=== PATIENT | female | born 1960 | race Two or more races ===

== ENCOUNTER 2023-02-14 11:14 | Outpatient (OUT) | payer BC, SELFPAY ==
--- NOTE | 2023-02-14 11:47 | MM_ITS ---
Patient Name: RICARDO MARTINEZ MR#: [id number] : 1960 Exam Date: 02/14/2023 Ordering Doctor: DR SANDRA AGUIRRE RADIOLOGY REPORT PROCEDURE: MM TOMOSYNTHESIS SCREENING BI COMPARISON: MG MAMM SCREEN 3D ION CAD, 06/10/2021. MG MAMM SCREEN INO W CAD, 11/13/2019. MG MAMM SCREEN ION W CAD, 02/08/2018. INDICATIONS: screening Calculator Name NCI Breast Cancer Risk Assessment Tool 5 Year Breast Cancer Risk 0.90% Lifetime Breast Cancer Risk 5.00% Personal Breast Cancer No Personal Ovarian Cancer No Treatments None Family Cancers Brother with pancreas cancer at age 52; Father with multiple myeloma cancer at age ~70. LOCATION: [facility] BREAST COMPOSITION: Almost entirely fatty. FINDINGS: DIAGNOSTIC CATEGORY 0--INCOMPLETE: NEED ADDITIONAL IMAGING EVALUATION. RIGHT BREAST: No significant suspicious finding. No significant change has occurred. LEFT BREAST: Interval increase in size and density of a 16 mm lymph node within the posterior upper-outer quadrant. Spot magnification views and ultrasound evaluation recommended. RECOMMENDATIONS: ADDITIONAL MAMMOGRAPHIC VIEWS REQUIRED: LEFT BREAST - RIGHT EXAGGERATED CRANIOCAUDAL VIEW - LEFT OBLIQUE SPOT MAGNIFICATION VIEW - ULTRASOUND: LEFT BREAST PLEASE NOTE: A NORMAL MAMMOGRAM DOES NOT EXCLUDE THE POSSIBILITY OF BREAST CANCER. A CLINICALLY SUSPICIOUS PALPABLE LUMP SHOULD BE BIOPSIED. Dictated by: Benja Augustin M.D. on 02/15/2023 at 08:45 Approved by: Benja Augustin M.D. on 02/15/2023 at 08:52
== END 2023-02-14 11:15 | disposition home or self-care (01) ==
LOC: MAMMO 11:14
PROVIDERS: PCP Nurse Practitioner Family; Visit Provider Nurse Practitioner Family
DX: Z12.31 Encounter for screening mammogram for malignant neoplasm of breast (principal); Z80.7 Family history of other malignant neoplasms of lymphoid, hematopoietic and related tissues; Z80.8 Family history of malignant neoplasm of other organs or systems; R59.0 Localized enlarged lymph nodes
CPT/HCPCS: 77063; 77067

== ENCOUNTER 2023-03-06 09:48 | Outpatient (OUT) | payer BC, SELFPAY ==
--- NOTE | 2023-03-06 09:52 | MM_ITS ---
Patient Name: RICARDO MARTINEZ MR#: [id number] : 1960 Exam Date: 03/06/2023 Ordering Doctor: DR CAROLYNN HALE RADIOLOGY REPORT PROCEDURE: MM DIAGNOSTIC MAMMO UNILAT LT, 03/06/2023, 09:52 US BREAST LT LIMITED, 03/06/2023, 10:10 COMPARISON: MG MAMM SCREEN 3D ION CAD, 06/10/2021. MM TOMOSYNTHESIS SCREENING BI, 02/14/2023. INDICATIONS: Abnormal Mammogram R92.8 Calculator Name NCI Breast Cancer Risk Assessment Tool 5 Year Breast Cancer Risk 0.90% Lifetime Breast Cancer Risk 5.00% Personal Breast Cancer No Personal Ovarian Cancer No Treatments None Family Cancers Brother with pancreas cancer at age 52; Father with multiple myeloma cancer at age ~70. LOCATION: [facility] BREAST COMPOSITION: Almost entirely fatty. FINDINGS: DIAGNOSTIC CATEGORY 3--PROBABLY BENIGN FINDING. THE FOLLOWING FINDING(S) HAS A HIGH PROBABILITY OF A BENIGN ETIOLOGY: Mammography demonstrates 2 focal lesions in oval/round lesion measuring 1.5 cm in the axillary tail seen only on the MLO spot compression. A 1.1 cm right of form nodule upper outer quadrant, mid to posterior breast. Ultrasound demonstrates 2 axillary lesions. The 1st lesion measures 1.9 x 0.8 x 1.1 cm oval hypoechogenic consistent with a normal-size normal morphology lymph node the cortex measuring approximately 3 mm, hypervascular hyper echogenic hilum. The 2nd lesion measures 1.4 x 0.6 x 1.2 cm oval lesion having a mildly heterogeneous thickened cortex measuring 3.2 mm with a hyper echogenic hypervascular hilum. Short interval follow-up of these 2 lymph nodes is recommended in light of the increased in size from 2021 and borderline thickened cortex of 1 of the 2 lymph node. RECOMMENDATIONS: FOLLOW-UP ULTRASOUND RIGHT BREAST IN 12 MONTHS. PLEASE NOTE: A NORMAL MAMMOGRAM DOES NOT EXCLUDE THE POSSIBILITY OF BREAST CANCER. A CLINICALLY SUSPICIOUS PALPABLE LUMP SHOULD BE BIOPSIED. Dictated by: Kunal Taylor MD on 03/06/2023 at 10:28 Approved by: Kunal Taylor MD on 03/06/2023 at 10:34
--- OUTSIDE RECORDS SUMMARY | 2023-03-06 09:56 | XMS_ITS | CCD ---
Author Name Unknown Address [address] [place] [address] Organization [facility] Care Team Providers Care Motion Designer Name Role Phone AURA OLIVAS Attending Unavailable ELIDAS, CANDACE R Primary Care Unavailable Elidas, Candace R Primary Care Provider Carla, Candace R Primary Care Provider Carla, Candace R Primary Care Provider [phone] Carla, Candace R Primary Care Provider Candace Aguirre R Primary Care Provider CARLA, CANDACE Gonsalez Primary Care Unavailable DENIZ, DR BRYN Cervantes Admitting Unavailabl e REINECK, DR BRYN Cervantes Attending Unavailabl e CARLTONECK, DR BRYN Cervantes Consulting Unavailabl e FALVO, SYEDA Consulting Unavailable RASTEGAR, SU Consulting Unavailable ELIDAS, CANDACE R Primary Care Unavailable KUNS, CANDACE R Admitting Unavailable ELIDAS, CANDACE R Attending Unavailable SRIDHAR, DR ADELINA Ku Consulting Unavailable CANDACE AGUIRRE R Consulting Unavailable CARLA CANDACE Primary Care Physician Lata Guardado Referring Unavailable MileysLata H Attending Unavailable Lata Guardado H Admitting Unavailable Kuns, Candace R Primary Care Provider Candace Aguirre CNP R Primary Care Provider [phone] Bakari Jones DO Primary Care Provider CARLA, CANDACE R Primary Care Unavailable ABHYANKAR, RUDI Referring Unavailable KUNS, CANDACE R Primary Care Unavailable ABHYANKAR, RUDI Referring Unavailable ABHYANKAR, RUDI Referring Unavailable KUNS, CANDACE R Primary Care Unavailable KUNS, CANDACE R Primary Care Unavailable ABHYANKAR, RUDI Referring Unavailable ABHYANKAR, RUDI Attending Unavailable KUNS, CANDACE Gonsalez Primary Care Unavailable ABHYANKAR, RUDI Referring Unavailable KUNS, CANDACE Gonsalez Primary Care Unavailable ABHYANKAR, RUDI Referring Unavailable ABHYANKAR, RUDI Referring Unavailable KUNS, CANDACE Gonsalez Primary Care Unavailable ABHYANKAR, RUDI Referring Unavailable KUNS, CANDACE Gonsalez Primary Care Unavailable KUNS, CANDACE Gonsalez Primary Care Unavailable ABHYANKAR, RUDI Referring Unavailable KUNS, CANDACE Gonsalez Primary Care Unavailable ABHYANKAR, RUDI Referring Unavailable KUNS, CANDACE Gonsalez Primary Care Unavailable ABHYANKAR, RUDI Referring Unavailable KUNS, CANDACE Gonsalez Primary Care Unavailable AILIN TREVINO Attending Unavailable ABHYANKAR, RUDI Referring Unavailable KUNS, CANDACE Gonsalez Primary Care Unavailable ABHYANKAR, RUDI Referring Unavailable KUNS, CANDACE Gonsalez Primary Care Unavailable ABHYANKAR, RUDI Referring Unavailable Allergies Allergy Classification Reported Allergen(s) Allergy Type Date of Onset Reaction(s) Facility (20 sources) ferric derisomaltose; Translations: [FERRIC DERISOMALTOSE] Drug Allergy 1 Itching [facility] (2 sources) Codeine; Translations: [codeine] Drug Allergy [facility] (1 source) Codeine; Translations: [codeine] Drug Allergy skin peeling, Hives, Itching [facility] Medications Current Medications Medication Drug Class(es) Dates Sig (Normalized) Sig (Original) acetaminophen 500 mg oral tablet (3 sources) Start: 06-08-2022 take 1 tablet by mouth every six hours as needed acetaminophen (TYLENOL EXTRA STRENGTH) 500 mg tablet Take 1 tablet (500 mg total) by mouth every 6 (six) hours as needed. 0 06/08/2022 Active Start: 06-08-2022 take 1 tablet by xiang th every four hours as needed for fever acetaminophen 500 mg Tab 500 mg = 1 tab(s), Oral, q4hr, PRN for fever, # 60 tab(s), Refills(s) 0, Pain Start Date: 06/08/22 Status: Ordered cholecalciferol 0.05 mg oral capsule (20 sources) Vitamin D Start: 02-08-2023 take 2 capsules by mouth in the morning cholecalciferol, vitamin D3, 2,000 units capsule TAKE 2 CAPSULES (4,000 UNITS TOTAL) BY MOUTH IN THE MORNING. 200 capsule 3 02/08/2023 Active Cholecalciferol, Vitamin D3, 50 mcg (2,000 unit) cap q 24 HR. 0 Active Comment on above: q 24 HR. docusate sodium 100 mg oral capsule (20 sources) Start: 05-12-19 take 1 capsule by mouth once daily as needed for constipation docusate sodium (COLACE) 100 mg capsule Indications: Slow transit constipation Take 1 capsule (100 mg total) by mouth daily as needed for constipation. 30 capsule 1 03/06/2022 Active Comment on above: TAKE 1 CAPSULE BY MO [facility] EVERY DAY NEEDED Iron-Dextran Complex (1 source) Start: 06-09-19 iron dextran IntraMuscular, qMonth, Refills(s) 0 Start Date: 06/08/22 Status: Ordered 3 ml liraglutide 6 mg/ml pen injector (7 sources) GLP-1 Receptor Agonist Start: 09-09-19 liraglutide, weight loss, 3 mg/0.5 mL (18 mg/3 mL) pen injector Indications: Obesity (BMI 30.0-34.9) Inject 3 mg under the skin in the morning. This will be the maintenance dose. 45 mL 5 12/14/2022 Active Start: 01-16-2022 End: 05-14-2022 liraglutide (VICTOZA) 0.6 mg / 0.1 ml subcutaneous pen injector Inject subcutaneously. 0 01/16/2022 05/14/2022 Active Comment on above: Inject subcutaneousl y. Inject 3 mg subcutan eously. topiramate 25 mg oral tablet (20 sources) Start: 07-01-19 take 1 tablet by mouth once daily at bedtime topiramate (TOPAMAX) 25 mg tablet Indications: Obesity, unspecified TAKE 1 TABLET BY MOUTH EVERYDAY AT BEDTIME 90 tablet 1 06/30/2022 Active vitamin b12 1 mg/ml injectable solution (20 sources) Vitamin B12 Start: 10-14-19 cyanocobalamin (VITAMIN B-12) 1,000 mcg/mL injection INJECT 1ML EVERY 28 DAYS DIRECTED 3 mL 3 10/13/2022 Active Start: 05-05-2020 take 1 tablet by xiang once daily cyanocobalamin (VITAMIN B-12) 1,000 mcg tab Take 1,000 mcg by mouth once daily. 0 05/05/2020 Active Comment on above: Take 1,000 mcg by mo [facility] once daily. Completed/Discontinued Medications Medication Drug Class(es) Dates Sig (Normalized) Sig (Original) benzonatate 200 mg oral capsule (19 sources) Non-narcotic Antitussive take 1 capsule by mouth three times daily Benzonatate 200 mg capsule benzonatate 200 mg capsule Take 1 capsule 3 times a day by oral route for 10 days. 0 Active Comment on above: benzonatate 200 mg c apsule Take 1 capsule 3 times a day by oral route for 10 days. ferrous sulfate 325 mg oral tablet (20 sources) Start: 05-05-2020 take 1 tablet by mouth once daily ferrous sulfate 325 mg (65 mg iron) tablet Take 1 tablet by mouth once daily. 0 05/05/2020 Active take 1 tablet by xiang th once daily at breakfast ferrous sulfate 325 (65 FE) mg tablet Ta ke 1 tablet (325 mg total) by mouth daily with breakfast. 0 Active Comment on above: Take 1 tablet by xiang th once daily. methylPREDNISolone 4 mg oral tablet (11 sources) Corticosteroid Start: 2020 End: 2022 methylPREDNISolone (MEDROL) 4 mg 0 06/21/2020 03/24/2022 Discontinued (Course of therapy completed) phentermine hydrochloride 37.5 mg oral tablet (19 sources) Sympathomimetic Amine Anorectic Start: 2020 take 1 tablet by mouth once daily Phentermine HCl 37.5 mg tablet Take 37.5 mg by mouth once daily. 0 06/01/2020 Active Comment on above: Take 37.5 mg by mout h once daily. Problems Active Problems Problem Classification Problem Date Documented Da te Episodic/Chronic Deficiency and other anemia (20 sources) Iron deficiency anemia secondary to inadequate dietary iron intake; Translations: [Other iron deficiency anemias] Onset: 06-09-2020 Episodic Diseases of white blood cells (20 sources) Leukemoid reaction; Translations: [Leukemoid reaction] Onset: 06-09-2020 Chronic E Codes: Fall (1 source) Fall on same level from slipping, tripping and stumbling with subsequent striking against unspecified object, initial encounter; Translations: [FALL SAME LVL SLIP STRK UNS OBJ INT] Onset: 06-05-2022 Episodic Nutritional deficiencies (2 sources) Vitamin D deficiency; Translations: [Vitamin D deficiency, unspecified] Onset: 07-08-2018 01-16-2022 Chronic Other gastrointestinal disorders (1 source) H/O: GIT by-pass; Translations: [Bariatric surgery status] Episodic Other injuries and conditions due to external causes (3 sources) Other specified injuries of head, initial encounter; Translations: [OTH SPEC INJURIES HEAD INITIAL ENC] Onset: 06-01-2022 Episodic Other screening for suspected conditions (not mental disorders or infectious disease) (8 sources) Encounter for screening mammogram for malignant neoplasm of breast; Translations: [Mammography abnormal] Onset: 01-04-2018 Episodic Skull and face fractures (1 source) Fracture of nasal bones, initial encounter for closed fracture; Translations: [FX NASAL BONES INITIAL ENC CLOS FX] Onset: 06-05-2022 Episodic Superficial injury; contusion (1 source) Contusion of other part of head, initial encounter; Translations: [CONTUS OTH PRT HEAD INITIAL ENCNTR] Onset: 06-05-2022 Episodic Past or Other Problems Problem Classification Problem Date Documented Da te Episodic/Chronic Deficiency and other anemia (20 sources) 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; Translations: [Vitamin B12 deficiency anemia due to selective vitamin B12 malabsorption with proteinuria] Onset: 06-09-2020 Episodic Deficiency and other anemia (2 sources) Iron deficiency anemia; Translations: [Iron deficiency anemia, unspecified] Onset: 01-04-2018 01-04-2018 Episodic Deficiency and other anemia (2 sources) Iron deficiency anemia due to dietary causes; Translations: [Other iron deficiency anemias] Onset: 06-09-2020 01-16-2022 Episodic Mood disorders (2 sources) Mood disorders Onset: 02-05-2023 02-05-2023 Other and unspecified benign neoplasm (2 sources) Polyp of transverse colon; Translations: [Polyp of colon] Onset: 01-23-2018 01-23-2018 Episodic Other gastrointestinal disorders (2 sources) Constipation; Translations: [Constipation, unspecified] Onset: 01-04-2018 01-04-2018 Episodic Other hematologic conditions (19 sources) Secondary polycythemia; Translations: [Secondary polycythemia] Onset: 10-07-2021 Episodic Other nutritional; endocrine; and metabolic disorders (2 sources) H/O: nutritional disorder; Translations: [Personal history of other endocrine, nutritional and metabolic disease] Onset: 12-10-2017 01-16-2022 Episodic Unclassified (2 sources) Onset: 02-05-2023 02-05-2023 Results Test Name Value Interpretation Reference Range Facility [facility] 02-23-2023 [facility] Nurse Visit (HEMASA) ERICA MARTINEZ ([id number]) 1960 F Date Time Provider Department 02/23/23 10:30 AM [facility] NURSE LETTY KOWALSKI HEMNAFISA During your visit today, we recorded the following information about you: Temperature Pulse Respiration Blood pressure 97.8 degrees 54/minute 16/minute 136/70 Sophy Mirza 02/23/2023 10:42 AM Signed Patient Identification confirmed: yes. Injection given and documented on APR per provider order. 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 - Cholecalciferol, Vitamin D3, 50 mcg (2,000 unit) cap q 24 HR. - topiramate (TOPAMAX) 25 mg tablet - Benzonatate 200 mg capsule benzonatate 200 mg capsule Take 1 capsule 3 times a day by oral route for 10 days. - ferrous sulfate 325 mg (65 mg iron) tablet Take 1 tablet by mouth once daily. - cyanocobalamin (VITAMIN B-12) 1,000 mcg tab Take 1,000 mcg by mouth once daily. - docusate sodium (COLACE) 100 mg capsule TAKE 1 CAPSULE BY MOUTH EVERY DAY NEEDED - Phentermine HCl 37.5 mg tablet Take 37.5 mg by mouth once daily. Problem List As Of Date 02/23/2023 Noted Resolved Iron deficiency anemia secondary to inadequate *06/09/2020 Vitamin B12 deficiency anemia due to selective *06/09/2020 Leukemoid reaction [D72.823] 06/09/2020 Secondary polycythemia [D75.1] 10/07/2021 Prescriptions ordered this encounter Disp Refills Start End CYANOCOBALAMIN (VIT B-12) 1,000 MCG/* 02/23/2023 02/23/2023 Route: INTRAMUSCULA Encounter Status:Closed by SOPHY MIRZA on 02/23/23 [facility] 01-19-2023 [facility] Nurse Visit (HEMASA) ERICA MARTINEZ ([id number]) 1960 F Date Time Provider Department 01/19/23 10:30 AM [facility] ESCOBEDO During your visit today, we recorded the following information about you: Jhon Turcios Ma 01/19/2023 10:32 AM Signed Patient Identification confirmed: yes. Injection given and documented on APR per provider order. 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 - Cholecalciferol, Vitamin D3, 50 mcg (2,000 unit) cap q 24 HR. - topiramate (TOPAMAX) 25 mg tablet - Benzonatate 200 mg capsule benzonatate 200 mg capsule Take 1 capsule 3 times a day by oral route for 10 days. - ferrous sulfate 325 mg (65 mg iron) tablet Take 1 tablet by mouth once daily. - cyanocobalamin (VITAMIN B-12) 1,000 mcg tab Take 1,000 mcg by mouth once daily. - docusate sodium (COLACE) 100 mg capsule TAKE 1 CAPSULE BY MOUTH EVERY DAY NEEDED - Phentermine HCl 37.5 mg tablet Take 37.5 mg by mouth once daily. Problem List As Of Date 01/19/2023 Noted Resolved Iron deficiency anemia secondary to inadequate *06/09/2020 Vitamin B12 deficiency anemia due to selective *06/09/2020 Leukemoid reaction [D72.823] 06/09/2020 Secondary polycythemia [D75.1] 10/07/2021 Visit Notes: >> Jhon Turcios Ma SunJan 19, 2023 10:31 AM Status: Signed Patient Identification confirmed: yes. Injection given and documented on APR per provider order. Jhon Turcios Ma Prescriptions ordered this encounter Disp Refills Start End CYANOCOBALAMIN (VIT B-12) 1,000 MCG/* 01/19/2023 01/19/2023 Route: INTRAMUSCULA Encounter Status:Closed by JHON TUCRIOS MA on 01/19/23 [facility] ER[facility] MARTINEZ ([id number]) 1960 F Date Time Provider Department 12/22/22 10:30 AM [facility] NURSE LETTY MEGHANA GREGG During your visit today, we recorded the following information about you: Temperature Pulse Respiration Blood pressure 97.3 degrees 56/minute 16/minute 136/68 Melissa Villegas MA 12/22/2022 10:59 AM Signed Patient Identification confirmed: yes. Injection given and documented on APR per provider order. 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 - Cholecalciferol, Vitamin D3, 50 mcg (2,000 unit) cap q 24 HR. - topiramate (TOPAMAX) 25 mg tablet - Benzonatate 200 mg capsule benzonatate 200 mg capsule Take 1 capsule 3 times a day by oral route for 10 days. - ferrous sulfate 325 mg (65 mg iron) tablet Take 1 tablet by mouth once daily. - cyanocobalamin (VITAMIN B-12) 1,000 mcg tab Take 1,000 mcg by mouth once daily. - docusate sodium (COLACE) 100 mg capsule TAKE 1 CAPSULE BY MOUTH EVERY DAY NEEDED - Phentermine HCl 37.5 mg tablet Take 37.5 mg by mouth once daily. Problem List As Of Date 12/22/2022 Noted Resolved Iron deficiency anemia secondary to inadequate *06/09/2020 Vitamin B12 deficiency anemia due to selective *06/09/2020 Leukemoid reaction [D72.823] 06/09/2020 Secondary polycythemia [D75.1] 10/07/2021 Visit Notes: >> Melissa Villegas MA SunDec 22, 2022 10:58 AM Status: Signed Patient Identification confirmed: yes. Injection given and documented on APR per provider order. Melissa Villegas MA Prescriptions ordered this encounter Disp Refills Start End CYANOCOBALAMIN (VIT B-12) 1,000 MCG/* 12/22/2022 12/22/2022 Route: INTRAMUSCULA Encounter Status:Closed by MELISSA VILLEGAS on 12/22/22 [facility] 11-24-2022 [facility] Nurse Visit (HEMASA) ERICA MARTINEZ ([id number]) 1960 F Date Time Provider Department 11/24/22 10:30 AM [facility] NURSE LETTY ESCOBEDO During your visit today, we recorded the following information about you: Temperature Pulse Respiration Blood pressure 97.9 degrees 59/minute 16/minute 144/62 Referring Provider: RUDI WARNER [[id number]] Allergies As of Date: 11/24/2022 Noted Allergy Reaction MONOFERRIC (FERRIC DERISOMALTOSE) 07/16/2020 9 - Itching Date Reviewed: 11/24/2022 Reviewed by: Yocasta Ibarra, TUYET - Fully Assessed Reason for Visit: Established Patient [175] Primary Visit Diagnosis:Iron deficiency anemia secondary to inadequate dietary iron intake [D50.8] Other Visit Diagnoses: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 - Cholecalciferol, Vitamin D3, 50 mcg (2,000 unit) cap q 24 HR. - topiramate (TOPAMAX) 25 mg tablet - Benzonatate 200 mg capsule benzonatate 200 mg capsule Take 1 capsule 3 times a day by oral route for 10 days. - ferrous sulfate 325 mg (65 mg iron) tablet Take 1 tablet by mouth once daily. - cyanocobalamin (VITAMIN B-12) 1,000 mcg tab Take 1,000 mcg by mouth once daily. - docusate sodium (COLACE) 100 mg capsule TAKE 1 CAPSULE BY MOUTH EVERY DAY NEEDED - Phentermine HCl 37.5 mg tablet Take 37.5 mg by mouth once daily. Problem List As Of Date 11/24/2022 Noted Resolved Iron deficiency anemia secondary to inadequate *06/09/2020 Vitamin B12 deficiency anemia due to selective *06/09/2020 Leukemoid reaction [D72.823] 06/09/2020 Secondary polycythemia [D75.1] 10/07/2021 Prescriptions ordered this encounter Disp Refills Start End CYANOCOBALAMIN (VIT B-12) 1,000 MCG/* 11/24/2022 11/24/2022 Route: INTRAMUSCULA Encounter Status:Closed by YOCASTA IBARRA on 11/24/22 [facility] 10-19-2022 [facility] Nurse Visit (HEMASA) ERICA MARTINEZ ([id number]) 1960 F Date Time Provider Department 10/19/22 9:00 AM [facility] ESCOBEDO During your visit today, we recorded the following information about you: Temperature Pulse Respiration Blood pressure 97.4 degrees 57/minute 16/minute 124/59 Weight Height 92.1 kg 1.626 m Jhon Turcios Ma 10/19/2022 9:17 AM Signed Patient Identification confirmed: yes. Injection given and documented on APR per provider order. 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] Leukemoid reaction [D72.823] Order(s):[facility] [[id number]] Order #: [id number]: 1 STANDING [facility] [[id number]] Order #: [id number]: 1 STANDING [facility] [[id number]] Order #: [id number]: 1 STANDING [facility] [[id number]] Order #: [id number]: 1 STANDING [facility] [[id number]] Order #: [id number]: 1 STANDING cyanocobalamin 1,000 mcg injectionDisp: Rfl: NaCl 0.9% iv infusionDisp: Rfl: diphenhydrAMINE 50 mg injection (BENADRYL)Disp: Rfl: hydrocortisone sodium succinate (PF) 100 mg injection (Solu-CORTEF)Disp: Rfl: EPINEPHrine 1 mg/mL (1 mL) 0.3 mg injectionDisp: Rfl: sodium chloride 0.9 % (flush) 10-20 mL (BD POSIFLUSH)Disp: Rfl: heparin 100 unit/mL 500 Units injectionDisp: Rfl: sodium chloride 0.9 % (flush) 10-20 mL (BD POSIFLUSH)Disp: Rfl: Prescriptions as of 10/19/2022 - liraglutide (SAXENDA) 3 mg/0.5 mL (18 mg/3 mL) pen injector Inject 3 mg subcutaneously. - Cholecalciferol, Vitamin D3, 50 mcg (2,000 unit) cap q 24 HR. - topiramate (TOPAMAX) 25 mg tablet - Benzonatate 200 mg capsule benzonatate 200 mg capsule Take 1 capsule 3 times a day by oral route for 10 days. - ferrous sulfate 325 mg (65 mg iron) tablet Take 1 tablet by mouth once daily. - cyanocobalamin (VITAMIN B-12) 1,000 mcg tab Take 1,000 mcg by mouth once daily. - docusate sodium (COLACE) 100 mg capsule TAKE 1 CAPSULE BY MOUTH EVERY DAY NEEDED - Phentermine HCl 37.5 mg tablet Take 37.5 mg by mouth once daily. Facility-Administered Medications as of 10/19/2022 - NaCl 0.9% iv infusion - diphenhydrAMINE 50 mg injection (BENADRYL) - hydrocortisone sodium succinate (PF) 100 mg injection (Solu-CORTEF) - EPINEPHrine 1 mg/mL (1 mL) 0.3 mg injection - sodium chloride 0.9 % (flush) 10-20 mL (BD POSIFLUSH) - heparin 100 unit/mL 500 Units injection - sodium chloride 0.9 % (flush) 10-20 mL (BD POSIFLUSH) Problem List As Of Date 10/19/2022 Noted Resolved Iron deficiency anemia secondary to inadequate *06/09/2020 Vitamin B12 deficiency anemia due to selective *06/09/2020 Leukemoid reaction [D72.823] 06/09/2020 Secondary polycythemia [D75.1] 10/07/2021 Visit Notes: >> Jhon Turcios Ma Marsha Oct 19, 2022 9:15 AM Status: Signed Patient Identification confirmed: yes. Injection given and documented on APR per provider order. Jhon Turcios Ma Prescriptions ordered this encounter Disp Refills Start End CYANOCOBALAMIN (VIT B-12) 1,000 MCG/* 10/19/2022 10/19/2022 Route: INTRAMUSCULA SODIUM CHLORIDE 0.9 % INTRAVENOUS SO* 10/19/2022 Cmt: Inform physician Route: INTRAVENOUS DIPHENHYDRAMINE 50 MG/ML INJECTION S* 10/19/2022 Route: INTRAVENOUS HYDROCORTISONE SOD SUCCINATE (PF) 10* 10/19/2022 Route: INTRAVENOUS EPINEPHRINE 1 MG/ML (1 ML) INJECTION* 10/19/2022 Route: INTRAMUSCULA SODIUM CHLORIDE 0.9 % (FLUSH) INJECT* 10/19/2022 Route: INTRAVENOUS HEPARIN LOCK FLUSH (PORCINE) 100 UNI* 10/19/2022 Route: INTRAVENOUS SODIUM CHLORIDE 0.9 % (FLUSH) INJECT* 10/19/2022 Route: INTRAVENOUS Encounter Status:Closed by JHON TURCIOS MA on 10/19/22 Normal [facility] CBC W Auto Differential pane l (Bld)on 09-22-2022 Basophils (Bld) [#/Vol] 0.25 10*3/uL High <0.11 [facility] Comment on above: Order Comment: Speci men Type: BLOOD SPECIMENOrdering Facility: [facility] Address: [address] [place] [address] Performed By: #### 5 7021-8 ####[facility] LABCLIA [id number] [address] LABCLIA [id number] [place] [address] [place] Basophils/100 WBC (Bld) 1.8 % Normal [facility] Comment on above: Order Comment: Speci men Type: BLOOD SPECIMENOrdering Facility: [facility] Address: [address] [place] [address] Performed By: #### 5 7021-8 ####[facility] LABCLIA [id number] [address] LABCLIA [id number] [place] [address] [place] Differential cell count method Nom (Bld) Manual Normal [facility] Comment on above: Order Comment: Speci men Type: BLOOD SPECIMENOrdering Facility: [facility] Address: [address] [place] [address] Performed By: #### 5 7021-8 ####[facility] LABCLIA [id number] [address] LABCLIA [id number] [place] [address] [place] Eosinophils (Bld) [#/Vol] 0.25 10*3/uL Normal <0.46 [facility] Comment on above: Order Comment: Speci men Type: BLOOD SPECIMENOrdering Facility: [facility] Address: [address] [place] [address] Performed By: #### 5 7021-8 ####[facility] LABCLIA [id number] [address] LABCLIA [id number] [place] [address] [place] Eosinophils/100 WBC (Bld) 1.8 % Normal [facility] Comment on above: Order Comment: Speci men Type: BLOOD SPECIMENOrdering Facility: [facility] Address: [address] [place] [address] Performed By: #### 5 7021-8 ####[facility] LABCLIA [id number] [address] LABCLIA [id number] [place] [address] [place] Erythrocyte distribution width (RBC) [Ratio] 13.4 % Normal 11.5-15.0 [facility] Comment on above: Order Comment: Speci men Type: BLOOD SPECIMENOrdering Facility: [facility] Address: [address] [place] [address] Performed By: #### 5 7021-8 ####[facility] LABCLIA [id number] [address] LABCLIA [id number] [place] [address] [place] Hematocrit (Bld) [Volume fraction] 46.1 % High 36.0-46.0 [facility] Comment on above: Order Comment: Speci men Type: BLOOD SPECIMENOrdering Facility: [facility] Address: [address] [address] Performed By: #### 5 7021-8 ####[facility] LABCLIA [id number] [place] [address] LABCLIA [id number] [place] [address] [place] Hemoglobin (Bld) [Mass/Vol] 15.2 g/dL Normal 11.5-15.5 [facility] Comment on above: Order Comment: Speci men Type: BLOOD SPECIMENOrdering Facility: [facility] Address: [address] [place] [address] Performed By: #### 5 7021-8 ####[facility] LABCLIA [id number] [address] LABCLIA [id number] [place] [address] [place] Lymphocytes (Bld) [#/Vol] 6.84 10*3/uL High 1.00-4.00 [facility] Comment on above: Order Comment: Speci men Type: BLOOD SPECIMENOrdering Facility: [facility] Address: [address] [place] [address] Performed By: #### 5 7021-8 ####[facility] LABCLIA [id number] [place] [address] LABCLIA [id number] [place] [address] [place] Lymphocytes/100 WBC (Bld) 50.0 % Normal [facility] Comment on above: Order Comment: Speci men Type: BLOOD SPECIMENOrdering Facility: [facility] Address: [address] [place] [address] Performed By: #### 5 7021-8 ####[facility] LABCLIA [id number] [address] LABCLIA [id number] [place] [address] [place] MCH (RBC) [Entitic mass] 30.1 pg Normal 26.0-34.0 [facility] Comment on above: Order Comment: Speci men Type: BLOOD SPECIMENOrdering Facility: [facility] Address: [address] [place] [address] Performed By: #### 5 7021-8 ####[facility] LABCLIA [id number] [address] LABCLIA [id number] [place] [address] [place] MCHC (RBC) [Mass/Vol] 33.0 g/dL Normal 30.5-36.0 [facility] Comment on above: Order Comment: Speci men Type: BLOOD SPECIMENOrdering Facility: [facility] Address: [address] [place] [address] Performed By: #### 5 7021-8 ####[facility] LABCLIA [id number] [address] LABCLIA [id number] [place] [address] [place] MCV (RBC) [Entitic vol] 91.3 fL Normal 80.0-100.0 [facility] Comment on above: Order Comment: Speci men Type: BLOOD SPECIMENOrdering Facility: [facility] Address: [address] [place] [address] Performed By: #### 5 7021-8 ####[facility] LABCLIA [id number] [address] LABCLIA [id number] [place] [address] [place] Monocytes (Bld) [#/Vol] 0.48 10*3/uL Normal <0.87 [facility] Comment on above: Order Comment: Speci men Type: BLOOD SPECIMENOrdering Facility: [facility] Address: [address] [address] Performed By: #### 5 7021-8 ####[facility] LABCLIA [id number] [address] LABCLIA [id number] [place] [address] [place] Monocytes/100 WBC (Bld) 3.5 % Normal [facility] Comment on above: Order Comment: Speci men Type: BLOOD SPECIMENOrdering Facility: [facility] Address: [address] [place] [address] Performed By: #### 5 7021-8 ####[facility] LABCLIA [id number] [address] LABCLIA [id number] [place] [address] [place] Neutrophils (Bld) [#/Vol] 5.88 10*3/uL Normal 1.45-7.50 [facility] Comment on above: Order Comment: Speci men Type: BLOOD SPECIMENOrdering Facility: [facility] Address: [address] [place] [address] Performed By: #### 5 7021-8 ####[facility] LABCLIA [id number] [address] LABCLIA [id number] [place] [address] [place] Neutrophils/100 WBC (Bld) 43.0 % Normal [facility] Comment on above: Order Comment: Speci men Type: BLOOD SPECIMENOrdering Facility: [facility] Address: [address] [place] [address] Performed By: #### 5 7021-8 ####[facility] LABCLIA [id number] [address] LABCLIA [id number] [place] [address] [place] Nucleated RBC (Bld) [#/Vol] 10*3/uL Normal <0.01 [facility] Comment on above: Order Comment: Speci men Type: BLOOD SPECIMENOrdering Facility: [facility] Address: [address] [place] [address] Performed By: #### 5 7021-8 ####[facility] LABCLIA [id number] [address] LABCLIA [id number] [place] [address] [place] Nucleated RBC/100 WBC (Bld) [Ratio] 0.0 /100 WBC Normal [facility] Comment on above: Order Comment: Speci men Type: BLOOD SPECIMENOrdering Facility: [facility] Address: [address] [place], [place] [address] Performed By: #### 5 7021-8 ####[facility] LABCLIA [id number] [address] LABCLIA [id number] [place] [address] [place] Ovalocytes LM Ql (Bld) Few Normal [facility] Comment on above: Order Comment: Speci men Type: BLOOD SPECIMENOrdering Facility: [facility] Address: [address] [place], [place] [address] Performed By: #### 5 7021-8 ####[facility] LABCLIA [id number] [address] LABCLIA [id number] [place] [address] [place] Platelet mean volume (Bld) [Entitic vol] 11.1 fL Normal 9.0-12.7 [facility] Comment on above: Order Comment: Speci men Type: BLOOD SPECIMENOrdering Facility: [facility] Address: [address] [place] [address] Performed By: #### 5 7021-8 ####[facility] LABCLIA [id number] [place] [address] LABCLIA [id number] [place] [address] [place] Platelets (Bld) [#/Vol] 262 10*3/uL Normal 150-400 [facility] Comment on above: Order Comment: Speci men Type: BLOOD SPECIMENOrdering Facility: [facility] Address: [address] Performed By: #### 5 7021-8 ####[facility] LABCLIA [id number] [address] LABCLIA [id number] [place] [address] [place] Platelets Estimate (Bld) [#/Vol] Adequate Normal [facility] Comment on above: Order Comment: Speci men Type: BLOOD SPECIMENOrdering Facility: [facility] Address: [address] Performed By: #### 5 7021-8 ####[facility] LABCLIA [id number] [address] LABCLIA [id number] [place] [address] [place] RBC (Bld) [#/Vol] 5.05 10*6/uL Normal 3.90-5.20 [facility] Comment on above: Order Comment: Speci men Type: BLOOD SPECIMENOrdering Facility: [facility] Address: [address] [place] [address] Performed By: #### 5 7021-8 ####[facility] LABCLIA [id number] [address] LABCLIA [id number] [address] [place] RED CELL MORPH Reviewed: see result s of individual morphologies Normal [facility] Comment on above: Order Comment: Speci men Type: BLOOD SPECIMENOrdering Facility: [facility] Address: [address] [place] [address] Performed By: #### 5 7021-8 ####[facility] LABCLIA [id number] [place] [address] LABCLIA [id number] [address] [place] WBC (Bld) [#/Vol] 13.67 10*3/uL High 3.70-11.00 [facility] Comment on above: Order Comment: Speci men Type: BLOOD SPECIMENOrdering Facility: [facility] Address: [address] [place] [address] Performed By: #### 5 7021-8 ####[facility] LABCLIA [id number] [place] [address] LABCLIA [id number] [address] [place] CNNURSEon 09-22-2022 [facility] ([facility]) ERICA MARTINEZ ([id number]) 1960 F Date Time Provider Department 09/22/22 11:15 AM [facility] NURSE LETTY ESCOBEDO During your visit today, we recorded the following information about you: Melissa Villegas MA 09/22/2022 11:40 AM Signed Patient Identification confirmed: yes. Injection given and documented on APR per provider order. 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 - Cholecalciferol, Vitamin D3, 50 mcg (2,000 unit) cap q 24 HR. - topiramate (TOPAMAX) 25 mg tablet - Benzonatate 200 mg capsule benzonatate 200 mg capsule Take 1 capsule 3 times a day by oral route for 10 days. - ferrous sulfate 325 mg (65 mg iron) tablet Take 1 tablet by mouth once daily. - cyanocobalamin (VITAMIN B-12) 1,000 mcg tab Take 1,000 mcg by mouth once daily. - docusate sodium (COLACE) 100 mg capsule TAKE 1 CAPSULE BY MOUTH EVERY DAY NEEDED - Phentermine HCl 37.5 mg tablet Take 37.5 mg by mouth once daily. 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 Injection given and documented on APR per provider order. Melissa Villegas MA Prescriptions ordered this encounter Disp Refills Start End CYANOCOBALAMIN (VIT B-12) 1,000 MCG/* 09/22/2022 09/22/2022 Route: INTRAMUSCULA Encounter Status:Closed by MELISSA VILLEGAS on 09/22/22 [facility] CNOVSPon 09-22-2022 CNOVSP Visit (SP) Office (HEMASA) ERICA MARTINEZ ([id number]) 1960 F Date Time Provider Department 09/22/22 11:00 AM RUDI WARNER During your visit today, we recorded the following information about you: Temperature Pulse Respiration Blood pressure 97.7 degrees 60/minute 16/minute 140/76 Weight Height 92.4 kg 1.626 m Rudi Warner MD 09/24/2022 9:32 AM Signed NAME: Erica Martinez CLINIC NO.: [id number] DATE OF SERVICE: September 22, 2022 (Timmy) Some elements in this clinic note that are critical to medical decision making have been carefully reviewed and included from a prior clinic note dated: March 24, 2022 (Pramod) Referring Provider: Candace Aguirre Additional Clinicians involved in Erica Martinez's care: CC: Consultation for leukocytosis ASSESSMENT: 62 year old woman with prior history of gastric bypass and severe iron deficiency as well as B12 deficiency with likely compensatory elevation in white blood cells. She has a normal white blood cell count differential ratio and so all of her absolute numbers looks elevated. She also has very poor dentition from years of chewing on ice due to pica. Now s/p dental extraction. Continue B12 replacement. Pica resolved. Iron studies show no need for additional replacement. Folate levels are decreased but still WNL - not anemic can hold off on replacement. PLAN: B12 shot today and monthly. Follow up in 6 months - labs 1 week ahead. TREATMENT TO DATE: 206/18/2020 - current: B12 injection 106/18/2020: Ferric Derisomaltose - patient is allergic. HPI: Updated Visit, September 22, 2022: Doing well with B12 injections. Anemia is resolved. Contiue B12. Iron levels pending - I don't suspect she'll need anything. Coneinue monthly treatment. Still grieving her brother Josh. Her recovered from a AMI. She is still smoking which is likely contributing to her high WBCs. Updated Visit, March 24, 2022: Erica Martinez returns for follow-up and her monthly B12 injection. Since her last visit there has been no significant medical changes. She states that she quit smoking approximately 4 weeks ago. She offers no particular complaints today. She denies fevers, chills, night sweats and signs/symptoms of infection. No bleeding or abnormal bruising she denies any lumps or bumps. She was started on saxenda for weight loss. Updated Visit, October 07, 2021: Resumed smoking after her mother passed 1 year ago. Is trying to quit. Noted based on rising Hgb/Hct with evidence of secondary polycythemia. Otherwise working very hard and feels great after b12 shots. She will need to continue supplementation given her gastric bypass. Updated Visit, April 04, 2021: Erica is 60 and returns in follow up for her B12 defency anemia. She always feels much improved after getting her shot. Labs are markedly improved. She will need to continue supplementation given her gastric bypass. 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 Updated Visit, October 15, 2020: Feels much better after B12 shots. Anemia is improved. She had much more benefit from B12 than from Iron. Just had some teeth taken out and recovering from that. Updated Visit, July 16, 2020: Developed a severe rash following monoferric (now resolved)- will need to use venofer in the future. Labs show improved MCV, pica to ice is improved. No need for b12 today. Overall feels better. Initial Visit, June 09, 2020: Erica Martinez presents today Hematology and Oncology evaluation. She is a 60 year old female who has had a gastric bypass in the mid presents on referral for elevated white blood cell count. I reviewed the rest of her laboratories that are noted in the electronic medical records and noted mild anemia with microcytosis, severely decreased iron indices and ferritin, and marked decrease in B12 levels. Given these findings she likely has a reactive process. She also reports that for years she has had pica to ice. She states that this is a really wound her teeth. She is also an active smoker up until July 2019 when her mother . The patient's brother is also my patient. He has CLL which this does not appear to be. I have asked her to stop taking her B12 and iron tablets. Fatigued white count normal % but continues to elevate. Needed a blood transfusion a few years a go after she passed out. Hasn't had periods for 30 years. REVIEW OF SYSTEMS Per HPI and otherwise negative by full review of organ systems. ECOG PERFORMANCE STATUS: 0 PHYSICAL EXAMINATION: Vitals: BP 140/76 Pulse 60 Temp (Src) 97.7 (Temporal) Resp 16 Ht 5' 4.016 (1.63m) Wt 203 lb 9.6 oz (92.4kg) SpO2 98% BMI 34.93 kg/(m2). Body surface area is 2.04 meters squared. Exam limited to gross visualization where appropriate. Gen.: This is an age-appropriate patient in no acute distress. He (more content not included)... Normal [facility] Comprehensive metabolic 2000 panelon 09-22-2022 Albumin [Mass/Vol] 4.2 g/dL Normal 3.9-4.9 [facility] Comment on above: Order Comment: Speci men Type: BLOOD SPECIMENOrdering Facility: [facility] Address: [address] [address] Performed By: #### 2 4323-8 ####[facility] LABCLIA [id number] [place] [address] ALP [Catalytic activity/Vol] 116 U/L Normal 34-123 [facility] Comment on above: Order Comment: Speci men Type: BLOOD SPECIMENOrdering Facility: [facility] Address: [address] [address] Performed By: #### 2 4323-8 ####[facility] LABCLIA [id number] [place] [address] ALT [Catalytic activity/Vol] 27 U/L Normal 7-38 [facility] Comment on above: Order Comment: Speci men Type: BLOOD SPECIMENOrdering Facility: [facility] Address: [address] [address] Performed By: #### 2 4323-8 ####[facility] LABCLIA [id number] [place] [address] Anion gap [Moles/Vol] 10 mmol/L Normal 9-18 [facility] Comment on above: Order Comment: Speci men Type: BLOOD SPECIMENOrdering Facility: [facility] Address: [address] [address] Performed By: #### 2 4323-8 ####[facility] LABCLIA [id number] [place] [address] AST [Catalytic activity/Vol] 25 U/L Normal 13-35 [facility] Comment on above: Order Comment: Speci men Type: BLOOD SPECIMENOrdering Facility: [facility] Address: [address] [address] Performed By: #### 2 4323-8 ####[facility] LABCLIA [id number] [place] [address] Bilirubin [Mass/Vol] 1.0 mg/dL Normal 0.2-1.3 [facility] Comment on above: Order Comment: Speci men Type: BLOOD SPECIMENOrdering Facility: [facility] Address: [address] [address] Performed By: #### 2 4323-8 ####[facility] LABCLIA [id number] [place] [address] Calcium [Mass/Vol] 10.0 mg/dL Normal 8.5-10.2 [facility] Comment on above: Order Comment: Speci men Type: BLOOD SPECIMENOrdering Facility: [facility] Address: [address] [place] [address] Performed By: #### 2 4323-8 ####[facility] LABCLIA [id number] [place] [address] Chloride [Moles/Vol] 109 mmol/L High 97-105 [facility] Comment on above: Order Comment: Speci men Type: BLOOD SPECIMENOrdering Facility: [facility] Address: [address] [place] [address] Performed By: #### 2 4323-8 ####[facility] LABCLIA [id number] [place] [address] CO2 [Moles/Vol] 24 mmol/L Normal 22-30 [facility] Comment on above: Order Comment: Speci men Type: BLOOD SPECIMENOrdering Facility: [facility] Address: [address] [place] [address] Performed By: #### 2 4323-8 ####[facility] LABCLIA [id number] [place] [address] Creatinine [Mass/Vol] 0.93 mg/dL Normal 0.58-0.96 [facility] Comment on above: Order Comment: Speci men Type: BLOOD SPECIMENOrdering Facility: [facility] Address: [address] [place] [address] Performed By: #### 2 4323-8 ####[facility] LABCLIA [id number] [place] [address] ESTIMATED GLOMERULAR FILTRATION RATE 71 mL/min/1.73m??? Normal >=60 [facility] Comment on above: Order Comment: Speci men Type: BLOOD SPECIMENOrdering Facility: [facility] Address: [address] [place] [address] Result Comment: Genesis mated Glomerular Filtration Rate (eGFR) is calculated using the 2020 CKD-EPI creatinine equation. This equation utilizes serum creatinine, sex, and age as parameters. The creatinine assay has traceable calibration to isotope dilution-mass spectrometry. Refer to KDIGO guidelines for clinical interpretation. In patients with unstable renal function, e.g. those with acute kidney injury, the eGFR may not accurately reflect actual GFR. Performed By: #### 2 4323-8 ####[facility] LABCLIA [id number] [place] [address] Glucose [Mass/Vol] 68 mg/dL Low 74-99 [facility] Comment on above: Order Comment: Speci men Type: BLOOD SPECIMENOrdering Facility: [facility] Address: [address] [place], [place] [address] Result Comment: The [place] Diabetes Association (ADA) provides guidance for cutoff values for fasting glucose and random glucose. The ADA defines fasting as no caloric intake for at least 8 hours. Fasting plasma glucose results between 100 to 125 mg/dL indicate increased risk for diabetes (prediabetes). Fasting plasma glucose results greater than or equal to 126 mg/dL meet the criteria for diagnosis of diabetes. In the absence of unequivocal hyperglycemia, results should be confirmed by repeat testing. In a patient with classic symptoms of hyperglycemia or hyperglycemic crisis, random plasma glucose results greater than or equal to 200 mg/dL meet the criteria for diagnosis of diabetes. Reference: Standards of Medical Care in Diabetes 2016, [place] [employer] Association. Diabetes Care. 2016.39(Suppl 1). Performed By: #### 2 4323-8 ####[facility] LABCLIA [id number] [place] [address] Potassium [Moles/Vol] 4.6 mmol/L Normal 3.7-5.1 [facility] Comment on above: Order Comment: Speci men Type: BLOOD SPECIMENOrdering Facility: [facility] Address: [address] [place] [address] Performed By: #### 2 4323-8 ####[facility] LABCLIA [id number] [place] [address] Protein [Mass/Vol] 6.8 g/dL Normal 6.3-8.0 [facility] Comment on above: Order Comment: Speci men Type: BLOOD SPECIMENOrdering Facility: [facility] Address: [address] [place] [address] Performed By: #### 2 4323-8 ####[facility] LABCLIA [id number] [place] [address] Sodium [Moles/Vol] 143 mmol/L Normal 136-144 [facility] Comment on above: Order Comment: Speci men Type: BLOOD SPECIMENOrdering Facility: [facility] Address: [address] [address] Performed By: #### 2 4323-8 ####[facility] LABCLIA [id number] [place] [address] Urea nitrogen [Mass/Vol] 18 mg/dL Normal 7-21 [facility] Comment on above: Order Comment: Speci men Type: BLOOD SPECIMENOrdering Facility: [facility] Address: [address] [address] Performed By: #### 2 4323-8 ####[facility] LABCLIA [id number] [place] [address] Ferritin SerPl-mCncon 2022 Ferritin [Mass/Vol] 63.3 ng/mL Normal 14.7-205.1 [facility] Comment on above: Order Comment: Speci men Type: BLOOD SPECIMENOrdering Facility: [facility] Address: [address] [place] [address] Performed By: #### 2 276-4 ####[facility] LABCLIA [id number] [place] [address] [place] Folate SerPl-mCncon 09-23-19 23 Folate [Mass/Vol] 6.1 ng/mL Normal >4.7 [facility] Comment on above: Order Comment: Speci men Type: BLOOD SPECIMENOrdering Facility: [facility] Address: [address] Performed By: #### 5 0190-8, 2284-8, 2132-9 ####[facility] LABCLIA [id number] [place] [address] [place] Iron and Iron binding capaci ty panelon 09-22-2022 Iron [Mass/Vol] 78 ug/dL Normal 41-186 [facility] Comment on above: Order Comment: Speci men Type: BLOOD SPECIMENOrdering Facility: [facility] Address: [address] [place] [address] Performed By: #### 5 0190-8, 2283-09, 2131-10 ####[facility] LABCLIA [id number] [place] [address] [place] Iron binding capacity [Mass/Vol] 316 ug/dL Normal 232-386 [facility] Comment on above: Order Comment: Speci men Type: BLOOD SPECIMENOrdering Facility: [facility] Address: [address] Performed By: #### 5 0190-8, 2283-09, 2131-10 ####[facility] LABCLIA [id number] [place] [address] [place] Iron/TIBC [Molar ratio] 24.7 % Normal 15.0-57.0 [facility] Comment on above: Order Comment: Speci men Type: BLOOD SPECIMENOrdering Facility: [facility] Address: [address] [place], [place] [address] Performed By: #### 5 0190-8, 2283-09, 2131-10 ####[facility] LABCLIA [id number] [address] [place] Vit B12 [facility] Cobalamin (Vitamin B12) [Mass/Vol] 935 pg/mL Normal 232-1245 [facility] Comment on above: Order Comment: Speci men Type: BLOOD SPECIMENOrdering Facility: [facility] Address: [address] [place] [address] Performed By: #### 5 0190-8, 2283-09, 2131-10 ####[facility] LABCLIA [id number] [place] [id number] [place] CNPCora 09-15-2022 CNPN Telephone (HEMASA) ERICA MARTINEZ ([id number]) 1960 F Date Time Provider Department 09/15/22 RUDI WARNER During your visit today, we recorded the following information about you: Melissa Villegas MA 09/15/2022 8:47 AM Signed Please sign B12 order for today, please and thanks! Melissa Villegas MA Allergies As of Date: 09/15/2022 Noted Allergy Reaction MONOFERRIC (FERRIC DERISOMALTOSE) 07/16/2020 9 - Itching Date Reviewed: 09/15/2022 Reviewed by: Ailin Trevino APRN.PRODUCTION REPAIRER - Fully Assessed Reason for Visit: Orders [681] Prescriptions as of 09/15/2022 - Cholecalciferol, Vitamin D3, 50 mcg (2,000 unit) cap q 24 HR. - topiramate (TOPAMAX) 25 mg tablet - Benzonatate 200 mg capsule benzonatate 200 mg capsule Take 1 capsule 3 times a day by oral route for 10 days. - ferrous sulfate 325 mg (65 mg iron) tablet Take 1 tablet by mouth once daily. - cyanocobalamin (VITAMIN B-12) 1,000 mcg tab Take 1,000 mcg by mouth once daily. - docusate sodium (COLACE) 100 mg capsule TAKE 1 CAPSULE BY MOUTH EVERY DAY NEEDED - Phentermine HCl 37.5 mg tablet Take 37.5 mg by mouth once daily. Problem List As Of Date 09/15/2022 Noted Resolved Iron deficiency anemia secondary to inadequate *06/09/2020 Vitamin B12 deficiency anemia due to selective *06/09/2020 Leukemoid reaction [D72.823] 06/09/2020 Secondary polycythemia [D75.1] 10/07/2021 Encounter Status:Closed by AILIN TREVINO on 09/15/22 [facility] Nurse Visit (HEMASA) ERICA MARTINEZ ([id number]) 1960 F Date Time Provider Department 08/11/22 11:00 AM [facility] NURSE LETTYLetty ESCOBEDO During your visit today, we recorded the following information about you: Temperature Pulse Respiration Blood pressure 97.6 degrees 56/minute 16/minute 139/70 Weight Height 103.9 kg 1.626 m Jhon Turcios Ma 08/11/2022 11:11 AM Signed Patient Identification confirmed: yes. Injection given and documented on APR per provider order. 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] Leukemoid reaction [D72.823] Order(s):BCN NURSING COMMUNICATION [[id number]] Order #: [id number]: 1 STANDING BCN NURSING COMMUNICATION [[id number]] Order #: [id number]: 1 STANDING BCN NURSING COMMUNICATION [[id number]] Order #: [id number]: 1 STANDING BCN NURSING COMMUNICATION [[id number]] Order #: [id number]: 1 STANDING BCN NURSING COMMUNICATION [[id number]] Order #: [id number]: 1 STANDING cyanocobalamin 1,000 mcg injectionDisp: Rfl: NaCl 0.9% iv infusionDisp: Rfl: diphenhydrAMINE 50 mg injection (BENADRYL)Disp: Rfl: hydrocortisone sodium succinate (PF) 100 mg injection (Solu-CORTEF)Disp: Rfl: EPINEPHrine 1 mg/mL (1 mL) 0.3 mg injectionDisp: Rfl: sodium chloride 0.9 % (flush) 10-20 mL (BD POSIFLUSH)Disp: Rfl: heparin 100 unit/mL 500 Units injectionDisp: Rfl: sodium chloride 0.9 % (flush) 10-20 mL (BD POSIFLUSH)Disp: Rfl: Prescriptions as of 08/11/2022 - Cholecalciferol, Vitamin D3, 50 mcg (2,000 unit) cap q 24 HR. - topiramate (TOPAMAX) 25 mg tablet - Benzonatate 200 mg capsule benzonatate 200 mg capsule Take 1 capsule 3 times a day by oral route for 10 days. - ferrous sulfate 325 mg (65 mg iron) tablet Take 1 tablet by mouth once daily. - cyanocobalamin (VITAMIN B-12) 1,000 mcg tab Take 1,000 mcg by mouth once daily. - docusate sodium (COLACE) 100 mg capsule TAKE 1 CAPSULE BY MOUTH EVERY DAY NEEDED - Phentermine HCl 37.5 mg tablet Take 37.5 mg by mouth once daily. 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 Injection given and documented on APR per provider order. Jhon Turcios Ma Prescriptions ordered this encounter Disp Refills Start End CYANOCOBALAMIN (VIT B-12) 1,000 MCG/* 08/11/2022 08/11/2022 Route: INTRAMUSCULA SODIUM CHLORIDE 0.9 % INTRAVENOUS SO* 08/11/2022 Cmt: Inform physician Route: INTRAVENOUS DIPHENHYDRAMINE 50 MG/ML INJECTION S* 08/11/2022 Route: INTRAVENOUS HYDROCORTISONE SOD SUCCINATE (PF) 10* 08/11/2022 Route: INTRAVENOUS EPINEPHRINE 1 MG/ML (1 ML) INJECTION* 08/11/2022 Route: INTRAMUSCULA SODIUM CHLORIDE 0.9 % (FLUSH) INJECT* 08/11/2022 Route: INTRAVENOUS HEPARIN LOCK FLUSH (PORCINE) 100 UNI* 08/11/2022 Route: INTRAVENOUS SODIUM CHLORIDE 0.9 % (FLUSH) INJECT* 08/11/2022 Route: INTRAVENOUS Encounter Status:Closed by JHON TURCIOS MA on 08/11/22 [facility]GG[facility] ERICA MARTINEZ ([id number]) 1960 F Date Time Provider Department 07/14/22 11:00 AM [facility] NURSE LETTY ESCOBEDO During your visit today, we recorded the following information about you: Temperature Respiration Weight Height 97.6 degrees 16/minute 103.9 kg 1.626 m Jhon Turcios Ma 07/14/2022 11:22 AM Signed Patient Identification confirmed: yes. Injection given and documented on APR per provider order. 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 - topiramate (TOPAMAX) 25 mg tablet - Benzonatate 200 mg capsule benzonatate 200 mg capsule Take 1 capsule 3 times a day by oral route for 10 days. - ferrous sulfate 325 mg (65 mg iron) tablet Take 1 tablet by mouth once daily. - cyanocobalamin (VITAMIN B-12) 1,000 mcg tab Take 1,000 mcg by mouth once daily. - docusate sodium (COLACE) 100 mg capsule TAKE 1 CAPSULE BY MOUTH EVERY DAY NEEDED - Phentermine HCl 37.5 mg tablet Take 37.5 mg by mouth once daily. 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 Injection given and documented on APR per provider order. Jhon Turcios Ma Prescriptions ordered this encounter Disp Refills Start End CYANOCOBALAMIN (VIT B-12) 1,000 MCG/* 07/14/2022 07/14/2022 Route: INTRAMUSCULA Encounter Status:Closed by JHON TURCIOS MA on 07/14/22 [facility] 06-16-2022 [facility] Nurse Visit (HEMNAFISA) ERICA MARTINEZ ([id number]) 1960 F Date Time Provider Department 06/16/22 11:00 AM [facility] NURSE LETTY ESCOBEDO During your visit today, we recorded the following information about you: Temperature Pulse Respiration Blood pressure 97.6 degrees 65/minute 16/minute 146/72 Weight Height 103.9 kg 1.626 m Jhon Turcios Ma 06/16/2022 11:40 AM Signed Patient Identification confirmed: yes. Injection given and documented on APR per provider order. 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 - topiramate (TOPAMAX) 25 mg tablet - Benzonatate 200 mg capsule benzonatate 200 mg capsule Take 1 capsule 3 times a day by oral route for 10 days. - ferrous sulfate 325 mg (65 mg iron) tablet Take 1 tablet by mouth once daily. - cyanocobalamin (VITAMIN B-12) 1,000 mcg tab Take 1,000 mcg by mouth once daily. - docusate sodium (COLACE) 100 mg capsule TAKE 1 CAPSULE BY MOUTH EVERY DAY NEEDED - Phentermine HCl 37.5 mg tablet Take 37.5 mg by mouth once daily. 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 Injection given and documented on APR per provider order. Jhon Turcios Ma Prescriptions ordered this encounter Disp Refills Start End CYANOCOBALAMIN (VIT B-12) 1,000 MCG/* 06/16/2022 06/16/2022 Route: INTRAMUSCULA Encounter Status:Closed by JHON TURCIOS MA on 06/16/22 Normal [facility] IntraOperative Documentson 0 06-13-2022 IntraOperative Documents [id number]# 1.00CD:127 Normal [facility] Main OR Intraoperative Recor don 06-12-2022 Main OR Intraoperative Record IntraOp Document Type FT Summary Primary Physician: Lata Guardado MD Finalized Date/Time: 06/12/22 14:29:08 Pt. Name: ERICA MARTINEZ/Sex: 1960 Female Med Rec #: [id number] Physician: Lata Guardado MD Financial #: [id number] Pt. Type: A Room/Bed: [place] [address] Admit/Disch: 06/08/22 11:07:16 - 06/08/22 17:00:00 Institution: Case Times FT Entry 1 Patient Times In Room 06/08/22 14:29:00 Out Room 06/08/22 15:05:00 Procedure Times Start 06/08/22 14:43:00 Stop 06/08/22 14:52:00 Anesthesia Times Start 06/08/22 14:29:00 Stop 06/08/22 15:05:00 Last Modified By: Shelia Wilson RN 06/08/22 15:05:30 Case Attendance FT Entry 1 Entry 2 Entry 3 Case Attendee Debby Shepherd CRNA, MD, Hilary H Coy RN, Shelia Busby Role Performed DAVID Surgeon - Primary Content Developer - Primary Time In 06/08/22 14:29:00 06/08/22 14:29:00 06/08/22 14:29:00 Time Out 06/08/22 15:05:00 06/08/22 14:53:00 06/08/22 15:05:00 Procedure NASAL FRACTURE CLOSED NASAL FRACTURE CLOSED NASAL FRACTURE CLOSED REDUCTION(.) REDUCTION(.) REDUCTION(.) Comments dr. camejo supervising Last Modified By: Steve RN, Shelia Wilson RN, Shelia Martini RN 06/08/22 15:05:33 06/08/22 15:05:33 06/08/22 15:05:33 Entry 4 Entry 5 Case Attendee Ricardo YAN, Audie Sheehan RN, Donald Saenz Role Performed Scrub - Primary Content Developer - Primary Time In 06/08/22 14:29:00 06/08/22 14:32:00 Time Out 06/08/22 15:05:00 06/08/22 15:05:00 Procedure NASAL FRACTURE CLOSED NASAL FRACTURE CLOSED REDUCTION(.) REDUCTION(.) Comments hua miracle galdino nursing technician scrubbed for procedure Last Modified By: Steve RN, Shelia Wilson RN, Shelia Saenz 06/08/22 15:05:33 06/08/22 15:05:33 Perioperative Protocols FT Pre-Care Text: Implements protective measures prior to operative or invasive procedure, confirms identity before the operative or invasive procedure, verifies operative procedure, surgical site, and laterality Entry 1 Procedure(s) NASAL FRACTURE CLOSED Patient Identity Birthday, ID Band REDUCTION(.) Verified (select at Check, Patient least 2): Participation Consents / H and P Anesthesia Consent, Operative Site N/A Verified HandP, Surgery/Procedure Marking Verified Consent Surgical Site Yes Laterality Verified n/a Verified Procedure Verified Yes Correct Patient Yes Position Verified Availability Equipment, Medication Prep Dry n/a Verified (If Applicable) PreOp Antibiotic No Time Out Joao HERNANDEZ, Given Participants Debby Sales MD, Steve Marmolejo RN, Ricardo Kapoor CST, Aguila Bronson RN, Donald Saenz Time Out Complete 06/08/22 14:43:00 Outcomes Met? Yes Last Modified By: Shelia Wilson RN 06/08/22 14:43:41 Post-Care Text: The patient is free from signs and symptoms of injury caused by extraneous objects Allergy Information FT Pre-Care Text: Verifies allergies Entry 1 Allergies Reviewed? Yes Allergies Reviewed Self/Patient With Outcomes Met? Yes Last Modified By: Shelia Wilson RN 06/08/22 14:21:14 Post-Care Text: The patient received appropriate medication(s) safely administered during the perioperative period Surgical Procedures FT Entry 1 Procedure Description Procedure NASAL FRACTURE CLOSED Modifiers . REDUCTION Surgeon Description CLOSE REDUCTION NASAL FRACTURE Primary Procedure Yes Primary Surgeon Lata Guardado MD Start 06/08/22 14:43:00 Stop 06/08/22 14:52:00 Anesthesia Type General Surgical Service ENT Wound Class 1 - Clean Last Modified By: Shelia Wilson RN 06/08/22 15:08:08 General Case Data FT Pre-Care Text: Classifies surgical wound, implements aseptic technique, initiates traffic control Entry 1 Case Information OR OR 2 FT Case Level Level 2 Wound Class 1 - Clean Specialty ENT ASA Class 3 Preop Diagnosis NASAL FRACTURE Postop Same As Preop Yes Postop Diagnosis NASAL FRACTURE Outcomes Met? Yes Last Modified By: Shelia Wilson RN 06/08/22 15:08:13 Post-Care Text: The patient is free from signs and symptoms of infection Skin Assessment (Pre Procedure) FT Pre-Care Text: Implements protective measures to prevent skin/ tissue injury due to thermal or mechanical sources Evaluates for signs and symptoms of physical injury to skin and tissue Entry 1 Skin Integrity Bruised Skin Abnormality Yes Abnormality Location facial bruising, and Outcomes Met? Yes per patient several other bruises throughout body Last Modified By: Shelia Wilson RN 06/08/22 14:34:33 Post-Care Text: The patient is free from signs and symptoms of injury caused by extraneous objects Patient Positioning FT Pre-Care Text: Identifies physical alterations that require additional precautions for procedure-specific positioning, verifies presence of prosthetics or corrective devices, positions the patient, evaluates the patient for signs and symptoms of injury as a result of positioning Entry 1 Procedure NASAL FRACTURE CLOSED Efren (more content not included)... Normal [facility] Consent for Anesthesiaon Consent for Anesthesia [id number]# 1.00CD:127 Normal [facility] Discharge Instructionson Discharge Instructions [id number]# 1.00CD:127 Normal [facility] IntraOperative Documentson 0 06-09-2022 IntraOperative Documents [id number]# 1.00CD:127 Normal [facility] Physician Orderon 06-09-2022 Physician Order [id number]# 1.00CD:127 Normal [facility] Preoperative Documentson Preoperative Documents [id number]# 1.00CD:127 Normal [facility] BUNon 06-08-2022 Urea nitrogen [Mass/Vol] 20 mg/dL Normal 07-09 [facility] Comment on above: Performed By: #### 2 162269, 6199862, 8663211, 2731092, 79968378, 7820211 ####[facility] [address] [place] [address] CBC w/Indiceson 06-08-2022 Erythrocyte distribution width (RBC) [Ratio] 13.5 % Normal 10.9-14.2 [facility] Comment on above: Performed By: #### 2 380380, 7869334, 0202357, 5020236, 25157395, 8910869 ####[facility] [address] [place] [address] Hematocrit (Bld) [Volume fraction] 42.6 % Normal 34.0-46.0 [facility] Comment on above: Performed By: #### 2 194739, 4815328, 8482736, 2056435, 28539798, 7066674 ####[facility] [address] [place] [address] Hemoglobin (Bld) [Mass/Vol] 14.3 g/dL Normal 12.0-16.0 [facility] Comment on above: Performed By: #### 2 583592, 5205003, 4057144, 6860489, 01575613, 7657730 ####[facility] [address] [place] [address] MCH (RBC) [Entitic mass] 30.1 pg Normal 27.0-34.0 [facility] Comment on above: Performed By: #### 2 382959, 2455004, 7081041, 2849374, 94142300, 1427066 ####[place] [address] [place] [address] MCHC (RBC) [Mass/Vol] 33.4 g/dL Normal 31.4-36.0 [facility] Comment on above: Performed By: #### 2 964556, 4171577, 0969436, 9564630, 72733786, 3904673 ####[address] [address] MCV (RBC) [Entitic vol] 90.1 fL Normal 80.0-100.0 [facility] Comment on above: Performed By: #### 2 211792, 5572401, 8039017, 6559247, 22842389, 2684096 ####[address] [address] Platelet mean volume (Bld) [Entitic vol] 9.5 fL Normal 6.4-10.8 [facility] Comment on above: Performed By: #### 2 452613, 5266708, 5488669, 3006409, 96062042, 8691943 ####[address] [address] Platelets (Bld) [#/Vol] 234.0 E9/L Normal 150.0-500.0 [facility] Comment on above: Performed By: #### 2 092698, 2885143, 7607713, 3241494, 52787689, 5651369 ####[address] [address] RBC (Bld) [#/Vol] 4.7 E12/L Normal 4.3-5.9 [facility] Comment on above: Performed By: #### 2 457362, 0139014, 8465242, 8703379, 70259802, 9004793 ####[facility] [address] [place] [address] WBC corrected for nucl RBC Auto (Bld) [#/Vol] 13.1 E9/L High 4.0-11.0 [facility] Comment on above: Performed By: #### 2 309954, 7643146, 4375667, 6468236, 11849747, 1659388 ####[facility] [address] [place] [address] CHEMISTRYOrdered By: SYSTEM SYSTEM on 06-08-2022 Anion gap [Moles/Vol] 13 mmol/L Normal 6 - 16 mEq/L F C Remisol Chloride [Moles/Vol] 105 mmol/L Normal 101 - 1 11 mmol/L FT Remisol CO2 [Moles/Vol] 24 mmol/L Normal 21 - 31 mmol/L FT Remisol Creatinine [Mass/Vol] 0.7 mg/dL Normal 0.5 - 1.3 mg/dL FT Remisol GFR/1.73 sq M.predicted among blacks MDRD (S/P/Bld) [Vol rate/Area] mL/min/1.73 m2 Normal >=59mL/min/1. 73 m2 [facility] Chem S GFR/1.73 sq M.predicted among non-blacks MDRD (S/P/Bld) [Vol rate/Area] mL/min/1.73 m2 Normal >=59mL/min/1. 73 m2 [place] Chem S Glucose post fast [Mass/Vol] 95 mg/dL Normal 55 - 99 mg/dL FT Remisol Potassium [Moles/Vol] 4.1 mmol/L Normal 3.5 - 5.3 mmol/L FT Remisol Sodium [Moles/Vol] 138 mmol/L Normal 135 - 145 mmol/L FT Remisol Urea nitrogen [Mass/Vol] 20 mg/dL Normal 5 - 21 mg/dL [facility] Remisol Consent for Procedure/Surger yon 06-08-2022 Consent for Procedure/Surgery [id number]# 1.00CD:127 Normal [facility] Consent for Treatmenton 04-2 0-2023 Consent for Treatment [id number]#1 .00CD:127 Normal [facility] Creatinineon 06-08-2022 Creatinine [Mass/Vol] 0.7 mg/dL Normal 0.5-1.3 [facility] Comment on above: Performed By: #### 2 614420, 1103728, 0986725, 9403117, 07718943, 6210875 ####[facility] [address] [place] [address] Glu Fastingon 06-08-2022 Glucose [Mass/Vol] 95 mg/dL Normal 55-99 [facility] Comment on above: Performed By: #### 2 861057, 1084478, 1845761, 7720794, 57784578, 6842935 ####[facility] [address] [place] [address] H&P Updateon 06-08-2022 H&P Update [id number]# 1.00CD:127 Normal [facility] HEMATOLOGYOrdered By: Jacqueline aguero on 06-08-2022 Erythrocyte distribution width (RBC) [Ratio] 13.5 % Normal 10.9 - 14.2 % [facility] Hematocrit (Bld) [Volume fraction] 42.6 % Normal 34.0 - 46.0 % [facility]eAutoS S Hemoglobin (Bld) [Mass/Vol] 14.3 g/dL Normal 12.0 - 16.0 gm/dL FT HemeAutoSS MCH (RBC) [Entitic mass] 30.1 pg Normal 27.0 - 34.0 pg FT HemeAutoSS MCHC (RBC) [Mass/Vol] 33.4 g/dL Normal 31.4 - 36.0 gm/dL FT HemeAutoSS MCV (RBC) [Entitic vol] 90.1 fL Normal 80.0 - 100.0 fL FT HemeAutoSS Platelet mean volume (Bld) [Entitic vol] 9.5 fL Normal 6.4 - 10.8 fL FT HemeAut oSS Platelets (Bld) [#/Vol] 234.0 E9/L Normal 150.0 - 500.0 E9/L [facility] RBC (Bld) [#/Vol] 4.7 E12/L Normal 4.3 - 5.9 E12/L [facility] [facility] WBC corrected for nucl RBC Auto (Bld) [#/Vol] 13.1 E9/L High 4.0 - 11.0 E9/L [facility] Lyteson 06-08-2022 Anion gap [Moles/Vol] 13 mmol/L Normal 6-16 [facility] Comment on above: Performed By: #### 2 265188, 9539795, 3173424, 6863600, 31546084, 3059461 ####[facility] [address] [place] [address] Chloride [Moles/Vol] 105 mmol/L Normal 101-111 [facility] Comment on above: Performed By: #### 2 162574, 7701230, 0494391, 8272575, 50137064, 5492658 ####[facility] [address] [place] [address] CO2 [Moles/Vol] 24 mmol/L Normal 21-31 [facility] Comment on above: Performed By: #### 2 429581, [id number], [id number], [id number], [id number], [id number] ####[facility] [id number] [facility] [place] [address] Potassium [Moles/Vol] 4.1 mmol/L Normal 3.5-5.3 [facility] Comment on above: Performed By: #### 2 [id number], [id number], [id number], [id number], [id number] ####[facility] [address] [facility] [place] [place] [address] Sodium [Moles/Vol] 138 mmol/L Normal 135-145 [facility] Comment on above: Performed By: #### 2 [id number], [id number], [id number], [id number], [id number] ####[facility] [address] [place] [address] Main OR PACU I Recordon 05-21 Main OR PACU I Record PACU Phase I Docum ent Type FT Summary Primary Physician: Lata Guardado MD Finalized Date/Time: 06/08/22 15:57:39 Pt. Name: KARTHIKEYAN MARTINEZHER Valdez/Sex: 1960 Female Med Rec #: [id number] Physician: Lata Guardado MD Financial #: [id number] Pt. Type: A Room/Bed: [facility] Admit/Disch: 06/08/22 11:07:16 - Institution: Case Times PACU I FT Pre-Care Text: Identifies barriers to communication and implements measures to provide psychological support Develops individualized plan of care, and ensures continuity of care Maintains patient's dignity and privacy, and maintains patient confidentiality Identifies and reports philosophical, cultural, and spiritual beliefs and values Identifies individual values and wishes concerning care Implements aseptic technique, and administers prescribed antibiotic therapy and immunizing agents as ordered Evaluates postoperative tissue perfusion Implements thermoregulation measures, and monitors body temperature Evaluates postoperative respiratory status Evaluates postoperative cardiac status Evaluates postoperative neurological status Assesses pain control, collaborated in initiating patient-controlled analgesia and implements alternative methods of pain control Verifies allergies, administers prescribed medications and solutions, evaluates response to medications Entry 1 In PACU I 06/08/22 15:07:00 Discharge from PACU 06/08/22 15:37:00 I Outcomes Met? Yes Last Modified By: Ro Auguste RN 06/08/22 15:56:56 Post-Care Text: The patient demonstrates knowledge of the expected response to the operative or invasive procedure The patient's care is consistent with the individualized perioperative plan of care The patient's right to privacy is maintained The patient's value system, lifestyle, ethnicity, and culture are considered, respected, and incorporated into the perioperative plan of care The patient participates in decisions affecting his or her perioperative plan of care The patient is free from signs and symptoms of infection The patient has wound/tissue perfusion consistent with or improved from baseline levels established preoperatively The patient is at or returning to normothermia at the conclusion of the immediate postoperative period The patient's respiratory function is consistent with or improved from baseline levels established preoperatively The patient's cardiovascular status is consistent with or improved from baseline levels established preoperatively The patient's cardiovascular status is consistent with or improved from baseline levels established preoperatively The patient demonstrates and/or reports adequate pain control throughout the perioperative period The patient received appropriate medication(s), safely administered during the perioperative period Acuity Level PACU I FT Entry 1 Start Time 06/08/22 15:07:00 Stop Time 06/08/22 15:37:00 Acuity Level Acuity Level I Last Modified By: Ro Auguste RN 06/08/22 15:57:34 Finalized By: Ro Auguste RN Document Signatures Signed By: Ro Auguste RN 06/08/22 15:57 Normal [facility] Main OR PACU II Recordon Main OR PACU II Record PACU Phase II Document Type FT Summary Primary Physician: Lata Guardado MD Finalized Date/Time: 06/08/22 17:00:55 Pt. Name: ERICA MARTINEZ/Sex: 1960 Female Med Rec #: [id number] Physician: Lata Guardado MD Financial #: [id number] Pt. Type: A Room/Bed: [place] [address] Admit/Disch: 06/08/22 11:07:16 - Institution: Case Times PACU II FT Pre-Care Text: Identifies barriers to communication and implements measures to provide psychological support and determines knowledge level Develops individualized plan of care, and ensures continuity of care Maintains patient's dignity and privacy, and maintains patient confidentiality Identifies and reports philosophical, cultural, and spiritual beliefs and values Identifies individual values and wishes concerning care administers prescribed antibiotic therapy and immunizing agents as ordered, Evaluates postoperative tissue perfusion Implements thermoregulation measures, and monitors body temperature Evaluates postoperative respiratory status Evaluates postoperative cardiac status Evaluates postoperative neurological status Assesses pain control, collaborated in initiating patient-controlled analgesia and implements alternative methods of pain control Verifies allergies, administers prescribed medications and solutions, evaluates response to medications Entry 1 In PACU II 06/08/22 15:40:00 Discharge from PACU 06/08/22 17:00:00 II Outcomes Met? Yes Last Modified By: Debra Hanley 06/08/22 17:00:52 Post-Care Text: The patient demonstrates knowledge of the expected response to the operative or invasive procedure The patient's care is consistent with the individualized perioperative plan of care The patient's right to privacy is maintained The patient's value system, lifestyle, ethnicity, and culture are considered, respected, and incorporated into the perioperative plan of care The patient participates in decisions affecting his or her perioperative plan of care. The patient is free from signs and symptoms of infection The patient has wound/tissue perfusion consistent with or improved from baseline levels established preoperatively The patient is at or returning to normothermia at the conclusion of the immediate postoperative period The patient's respiratory function is consistent with or improved from baseline levels established preoperatively The patient's cardiovascular status is consistent with or improved from baseline levels established preoperatively The patient's neurological status is consistent with or improved from baseline levels established preoperatively The patient demonstrates and/or reports adequate pain control throughout the perioperative period The patient received appropriate medication(s), safely administered during the perioperative period Finalized By: Debra Hanley Document Signatures Signed By: Debra Hanley 06/08/22 17:00 [facility] Main OR Preoperative Recordo n 06-08-2022 Main OR Preoperative Record PreOp Document Type FT Summary Primary Physician: Lata Guardado MD Finalized Date/Time: 06/08/22 14:35:11 Pt. Name: ERICA MARTINEZ/Sex: 1960 Female Med Rec #: [id number] Physician: Lata Guardado MD Financial #: [id number] Pt. Type: A Room/Bed: [place] [address] Admit/Disch: 06/08/22 11:07:16 - Institution: Case Times PreOp FT Pre-Care Text: Verifies consent for planned procedure, identifies individual values and wishes concerning care, includes family members in perioperative teaching Entry 1 Patient Times. In Pre Surgery 06/08/22 11:25:00 Out Pre Surgery 06/08/22 14:27:00 Outcomes Met? Yes Last Modified By: Shelia Wilson RN 06/08/22 14:35:06 Post-Care Text: The patient participates in decisions affecting his or her perioperative plan of care Finalized By: Shelia Wilson RN Document Signatures Signed By: Shelia Wilson RN 04/20/23 14:35 [facility] Monitor Recordon 06-08-2022 Monitor Record [id number]# 1.00CD:127 Normal [facility] Monitor Record [id number]# 1.00CD:127 Normal [facility] Patient Education - Texton 0 06-08-2022 Patient Education - Text ENT Nasal Fracture A nasal fracture is a break or crack in the bones of the nose or the tissue that helps to form the nose (cartilage). Minor breaks do not require treatment and usually heal on their own after about one month. Serious breaks may require treatment that could include surgery. What are the causes? A nasal fracture is usually caused by the strong force of a direct hit to the nose (blunt injury). This type of injury often occurs from: ? Playing a contact sport. ? Being involved in a car accident. ? Falling. ? Getting punched in the face. What are the signs or symptoms? Symptoms of this condition include: ? Pain. ? Swelling of the nose. ? Bleeding from the nose. ? Bruising around the nose or bruising around the eyes (black eyes). ? Crooked appearance of the nose. How is this diagnosed? This condition may be diagnosed based on a physical exam. During the exam, the health care provider will: ? Gently feel the nose for signs of broken bones. ? Look inside the nostrils to check if there is a blood-filled swelling on the dividing wall between the nostrils (septal hematoma). An X-ray of the nose may be taken. Sometimes, an X-ray may not show a nasal fracture even when one is present. In some cases, X-rays or a CT scan may be taken again 1?5 days later after the swelling has gone down. How is this treated? Treatment for this condition depends on the severity of the injury. ? Minor fractures that have not caused deformity often do not require treatment. They may heal on their own. ? For more serious fractures that have caused bones to move out of position, treatment may involve one of the following: ? Repositioning the bones without surgery. The health care provider may be able to do this in his or her office after you are given medicine to numb the nasal area (local anesthetic). ? Surgery. If surgery is needed, it will be done after the swelling is gone. Surgery will stabilize and align the fracture. Follow these instructions at home: Activity ? Return to your normal activities as told by your health care provider. Ask your health care provider what activities are safe for you. ? Do not play contact sports for 3?4 weeks or as told by your health care provider. Managing pain and swelling If directed, put ice on the injured area. To do this: ? Put ice in a plastic bag. ? Place a towel between your skin and the bag. ? Leave the ice on for 20 minutes, 2?3 times a day. ? Take off the ice if your skin turns bright red. This is very important. If you cannot feel pain, heat, or cold, you have a greater risk of damage to the area. General instructions ? Take bxsw-[id number] and prescription medicines only as told by your health care provider. ? If your nose starts to bleed, sit in an upright position while you squeeze the soft parts of your nose against the dividing wall between your nostrils (septum) for 10 minutes. ? Try to avoid blowing your nose. ? Keep all follow-up visits. This is important. Contact a health care provider if: ? Your pain increases or becomes severe. ? You continue to have nosebleeds. ? The shape of your nose does not return to normal within 5 days. ? You have pus draining out of your nose. Get help right away if: ? You have bleeding from your nose that does not stop after you pinch your nostrils closed for 20 minutes and keep ice on your nose. ? You have clear fluid draining out of your nose. ? You notice swelling near the septum inside the nose. This swelling is a septal hematoma that must be drained to help prevent infection. ? You have difficulty moving your eyes. ? You have repeated vomiting. These symptoms may be an emergency. Get help right away. Call 911. ? Do not wait to see if the symptoms will go away. ? Do not drive yourself to the hospital. Summary ? A nasal fracture is a break or crack in the bones or cartilage of the nose. ? The fracture is usually caused by a blunt injury to the nose. ? Symptoms include pain, swelling, and facial bruising. ? Nasal fractures may heal on their own, or your health care provider may need to move the bones back into proper position. In some cases, surgery may be needed. This information is not intended to replace advice given to you by your health care provider. Make sure you discuss any questions you have with your health care provider. Document Revised: 09/14/2021 Document Reviewed: 09/14/2021 Elsevier Patient Education ? 2022 [employer]. [facility] Progress Note-Physicianon Progress Note-Physician Patient: ERICA MARTINEZ Age: 62 years Sex: Female : 1960 Associated Diagnoses: None Author: MD Camejo Ahmad F Postoperative Information Postoperative disposition: Postoperative disposition: To PACU. Optimetrix number: Optimetrix number [id number]. Anesthetic utilized: General. Health Status Allergies: Allergic Reactions (Selected) Severity Not Documented Codeine- Skin peeling, itching and hives. Physical Examination VS/Measurements Pain Assessment: Controlled. General: Awake, Alert, Appropriate. Respiratory: Adequate air exchange. Cardiovascular: Stable, Normal peripheral perfusion. Neurological: Normal sensory function, Normal motor function. Assessment Anesthetic outcome No anesthetic complications noted. Adequate pain relief. able to void without difficulty, able to ambulate with assist, tolerating PO intake, no N/V. Review / Management Condition: Stable. Plan Transfer/Discharge: Transfer/Discharge Discharge when meets criteria ( To home ). [facility] Comment on above: Result Comment: Elec tronically Signed By: MD Camejo Ahmad F\.br\Date and Time Signed: 06/08/22 17:27 EDT Progress Note-Physician Patient: ERICA MARTINEZ Age: 62 years Sex: Female : 1960 Associated Diagnoses: None Author: MD Camejo Ahmad F Preoperative Information Time patient last ate or drank:=== (npo 8 hours) Anesthesia history: Patient history: No prior anesthesia problems. Re-evaluation prior to induction: Completed, Initial evaluation reviewed. Review of Systems Respiratory: No shortness of breath. Cardiovascular: No chest pain. Hematology/Lymphatics : No bruising tendency, No bleeding tendency. Health Status Allergies: Allergic Reactions (All) Severity Not Documented Codeine- Skin peeling, itching and hives. Canceled/Inactive Reactions (All) No Known Allergies Current medications: (Selected) Inpatient Medications Ordered Lactated Ringers IV Diana 1000 mL 1,000 mL: 1,000 mL, IV, 150 mL/hr, Routine, Start date 06/08/22 12:00:00 EDT, 6.7 hour(s), Total volume (mL): 1,000 Documented Medications Documented acetaminophen 500 mg Tab: 500 mg = 1 tab(s), Oral, q4hr, PRN for fever, # 60 tab(s), Refills(s) 0, Pain iron dextran: IntraMuscular, qMonth, Refills(s) 0 Problem list: No problem items selected or recorded. Histories Past Medical History: No active or resolved past medical history items have been selected or recorded. Family History: No family history items have been selected or recorded. Procedure history: Closed reduction of fractured nasal bone ([id number]) on 06/08/2022 at 62 Years. Gastric bypass operation ([id number]). Cholecystectomy ([id number]). Social History Social & Psychosocial Habits Alcohol 06/08/2022 Risk Assessment: Denies Alcohol Use Tobacco 06/08/2022 Risk Assessment: No Risk 06/08/2022 Tobacco Use: Former smoker, quit more Type: Cigarettes . Physical Examination VS/Measurements Airway: Mallampati classification: II (soft palate, fauces, uvula visible). Respiratory: Lungs are clear to auscultation. Cardiovascular: Normal rate, Regular rhythm. Review / Management Results review Interpretation of Outside Results Chest x-ray results Radiology results ECG interpretation Condition Plan [place] [employer]hesi[employer] (ASA) physical status classification: Class III. Anesthetic Preoperative Plan Anesthesia: General. . Anesthetic plan, risks, benefits, and alternatives discussed with the patient and/or family. Risks discussed: nausea, vomiting, headache, sore throat, dental injury, serious complications. Patient verbalized understanding. Communication: face to face with (patient 5 minutes, Pt educated on the importance of smoking cessation.). Normal [facility] Comment on above: Result Comment: Elec tronically Signed By: MD Nell, Francheska Zamora\.topher\Date and Time Signed: 06/08/22 17:25 EDT XR Chest Single Viewon 06-08 XR Chest Single View Exam Date/Time: 06/08/2022 12:11 EDT Reason for Exam: P.A.T. Report IMPRESSION: No acute radiographic abnormality. EXAMINATION: XR Chest Single View Clinical History: P.A.T. Comparison: None RESULT: No focal consolidation. No pleural effusion. No pneumothorax. Normal cardiomediastinal silhouette. No acute osseous findings. Dextroscoliosis thoracic spine. Degenerative changes. Suture anchor right humeral head. Ordering Provider: Roderick Zayas FINAL REPORT Dictated: 06/08/2022 12:20 pm Elton Cerda MD. Signed (Electronic Signature): 06/08/2022 12:20 pm Signed by: Elton Cerda MD Transcribed by: ANN Technologist: MAYCO Technical Comments Radiation Dose: Ka,r in mGy = na DAP = na Normal [facility] eGFRon 06-08-2022 GFR/1.73 sq M.predicted among blacks MDRD (S/P/Bld) [Vol rate/Area] mL/min/{1.73_m2} Normal >=59 [facility] Comment on above: Order Comment: Order added by Discern Expert. Result Comment: eGFR is race adjusted. AA=. Performed By: #### 2 [id number], [id number], [id number], [id number] ####[facility] [address] [place] [address] GFR/1.73 sq M.predicted among non-blacks MDRD (S/P/Bld) [Vol rate/Area] mL/min/{1.73_m2} Normal >=59 [facility] Comment on above: Order Comment: Order added by Discern Expert. Result Comment: Callisthenics Instructor oneal kidney disease could be indicated at eGFR's of less than 60 mL/min/1.73m2. Kidney failure is indicated at less than 15 mL/min/1.73m2. Performed By: #### 2 [id number], [id number], [id number], [id number] ####[facility] [address] [place] [address] CT FACIAL BONES WO CONon CT FACIAL BONES WO CON EXAMINATION: CT FACIAL BONES WO CON HISTORY: UNSPECIFIED INJURY OF HEAD, INITIAL ENCOUNTER COMPARISON: None. TECHNIQUE: CT examination of the facial bones without IV contrast. Coronal and sagittal reformations were performed. Dose reduction techniques were achieved by using automated exposure control and/or adjustment of mA and/or kV according to patient size and/or use of iterative reconstruction technique. FINDINGS: There is a mildly displaced fracture of the left nasal bone with adjacent soft tissue edema. Paranasal sinuses are normal. Bilateral orbits are normal. Nasopharynx is patent. IMPRESSION: mildly displaced fracture of the left nasal bone with adjacent soft tissue edema. Electronically authenticated by: SU MOJICA Date: 2022-06-01 16:20 Normal [facility] CT HEAD WO CONon 06-01-2022 CT HEAD WO CON EXAM: CT HEAD WO CON CLINICAL INDICATION: UNSPECIFIED INJURY OF HEAD, INITIAL ENCOUNTER COMPARISON: None TECHNIQUE: Axial CT images of the brain were obtained without contrast. Coronal and sagittal reformats were obtained. Dose reduction techniques were achieved by using automated exposure control and/or adjustment of mA and/or kV according to patient size and/or use of iterative reconstruction technique. FINDINGS: No intracranial hemorrhage, extra-axial fluid collection, hydrocephalus, midline shift, or acute large vessel territory infarction. No other mass effect. Patchy subcortical hypoattenuation is likely on the basis of chronic microvascular angiopathic changes. Mild symmetric global volume loss without lobar predominance. Commensurate prominence of the ventricular system. Basal cisterns are patent. No calvarial fracture. No acute soft tissue abnormalities. Partially calcified trichilemmal cyst. Paranasal sinuses and mastoid air cells are well-aerated. IMPRESSION: No acute intracranial process. Electronically authenticated by: SYEDA FROST Date: 2022-06-01 16:11 Normal [facility] CNNURSEon 05-19-2022 CNNURSE Nurse Visit (GRGEG) ERICA MARTINEZ ([id number]) 1960 F Date Time Provider Department 05/19/22 11:00 AM [facility] NURSE LETTY ESCOBEDO During your visit today, we recorded the following information about you: Temperature Pulse Respiration Blood pressure 97.8 degrees 65/minute 16/minute 151/79 Weight Height 103.9 kg 1.626 m Jhon Turcios Ma 05/19/2022 11:13 AM Signed Patient Identification confirmed: yes. Injection given and documented on APR per provider order. 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 - topiramate (TOPAMAX) 25 mg tablet - Benzonatate 200 mg capsule benzonatate 200 mg capsule Take 1 capsule 3 times a day by oral route for 10 days. - ferrous sulfate 325 mg (65 mg iron) tablet Take 1 tablet by mouth once daily. - cyanocobalamin (VITAMIN B-12) 1,000 mcg tab Take 1,000 mcg by mouth once daily. - docusate sodium (COLACE) 100 mg capsule TAKE 1 CAPSULE BY MOUTH EVERY DAY NEEDED - Phentermine HCl 37.5 mg tablet Take 37.5 mg by mouth once daily. 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 Injection given and documented on APR per provider order. Jhon Turcios Ma Prescriptions ordered this encounter Disp Refills Start End CYANOCOBALAMIN (VIT B-12) 1,000 MCG/* 05/19/2022 05/19/2022 Route: INTRAMUSCULA Encounter Status:Closed by JHON TURCIOS MA on 05/19/22 [facility] ERICA MARTINEZ ([id number]) 1960 F Date Time Provider Department 03/24/22 11:30 AM [facility] NURSE LETTY ESCOBEDO During your visit today, we recorded the following information about you: Temperature Pulse Respiration Blood pressure 97.5 degrees 80/minute 16/minute 131/74 Weight Height 104.3 kg 1.626 m Jhon Turcios Ma 03/24/2022 11:24 AM Signed Patient Identification confirmed: yes. Injection given and documented on APR per provider order. 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 - Cholecalciferol, Vitamin D3, 50 mcg (2,000 unit) cap q 24 HR. - topiramate (TOPAMAX) 25 mg tablet - Benzonatate 200 mg capsule benzonatate 200 mg capsule Take 1 capsule 3 times a day by oral route for 10 days. - ferrous sulfate 325 mg (65 mg iron) tablet Take 1 tablet by mouth once daily. - cyanocobalamin (VITAMIN B-12) 1,000 mcg tab Take 1,000 mcg by mouth once daily. - docusate sodium (COLACE) 100 mg capsule TAKE 1 CAPSULE BY MOUTH EVERY DAY NEEDED - Phentermine HCl 37.5 mg tablet Take 37.5 mg by mouth once daily. Problem List As Of Date 03/24/2022 Noted Resolved Iron deficiency anemia secondary to inadequate *06/09/2020 Vitamin B12 deficiency anemia due to selective *06/09/2020 Leukemoid reaction [D72.823] 06/09/2020 Secondary polycythemia [D75.1] 10/07/2021 Visit Notes: >> Jhon Turcios Ma Fri Mar 24, 2022 11:03 AM Status: Signed Patient Identification confirmed: yes. Injection given and documented on APR per provider order. Jhon Turcios Ma Prescriptions ordered this encounter Disp Refills Start End CYANOCOBALAMIN (VIT B-12) 1,000 MCG/* 03/24/2022 03/24/2022 Route: INTRAMUSCULA Encounter Status:Closed by JHON TURCIOS MA on 03/24/22 [facility] CNOVSPon 03-24-2022 CNOVS Visit (SP) Office ([place]) ERICA MARTINEZ ([id number]) 1960 F Date Time Provider Department 03/24/22 11:00 AM AILIN TREVINO During your visit today, we recorded the following information about you: Temperature Pulse Respiration Blood pressure 97.5 degrees 80/minute 16/minute 131/74 Weight Height 104.1 kg 1.626 m Ailin Trevino APRN.PRODUCTION REPAIRER 03/24/2022 4:45 PM Signed NAME: Erica Martinez CLINIC NO.: [id number] DATE OF SERVICE: March 24, 2022 (Pramod) Some elements in this clinic note that are critical to medical decision making have been carefully reviewed and included from a prior clinic note dated: October 07, 2021. (Dr. Warner) Referring Provider: Candace Aguirre Additional Clinicians involved in Erica Martinez's care: CC: Consultation for leukocytosis ASSESSMENT: 61 year old woman with prior history of gastric bypass and severe iron deficiency as well as B12 deficiency with likely compensatory elevation in white blood cells. She has a normal white blood cell count differential ratio and so all of her absolute numbers looks elevated. She also has very poor dentition from years of chewing on ice due to pica. Now s/p dental extraction. Continue B12 replacement. Pica resolved. PLAN: 1. B12 shot today and monthly. 2. She will contact her PCP who has also ordered monthly B12 injections and explained that she would prefer to receive her B12 injections here. 3. Follow up in 6 months - labs 1 week ahead. TREATMENT TO DATE: . 06/18/2020 - current: B12 injection . 06/18/2020: Ferric Derisomaltose - patient is allergic. HPI: Updated Visit, March 24, 2022: Erica Martinez returns for follow-up and her monthly B12 injection. Since her last visit there has been no significant medical changes. She states that she quit smoking approximately 4 weeks ago. She offers no particular complaints today. She denies fevers, chills, night sweats and signs/symptoms of infection. No bleeding or abnormal bruising she denies any lumps or bumps. She was started on saxenda for weight loss. Updated Visit, October 07, 2021: Resumed smoking after her mother passed 1 year ago. Is trying to quit. Noted based on rising Hgb/Hct with evidence of secondary polycythemia. Otherwise working very hard and feels great after b12 shots. She will need to continue supplementation given her gastric bypass. Updated Visit, April 04, 2021: Erica is 60 and returns in follow up for her B12 defency anemia. She always feels much improved after getting her shot. Labs are markedly improved. She will need to continue supplementation given her gastric bypass. 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 Updated Visit, October 15, 2020: Feels much better after B12 shots. Anemia is improved. She had much more benefit from B12 than from Iron. Just had some teeth taken out and recovering from that. Updated Visit, July 16, 2020: Developed a severe rash following monoferric (now resolved)- will need to use venofer in the future. Labs show improved MCV, pica to ice is improved. No need for b12 today. Overall feels better. Initial Visit, June 09, 2020: Erica Martinez presents today Hematology and Oncology evaluation. She is a 60 year old female who has had a gastric bypass in the mid presents on referral for elevated white blood cell count. I reviewed the rest of her laboratories that are noted in the electronic medical records and noted mild anemia with microcytosis, severely decreased iron indices and ferritin, and marked decrease in B12 levels. Given these findings she likely has a reactive process. She also reports that for years she has had pica to ice. She states that this is a really wound her teeth. She is also an active smoker up until July 2019 when her mother . The patient's brother is also my patient. He has CLL which this does not appear to be. I have asked her to stop taking her B12 and iron tablets. Fatigued white count normal % but continues to elevate. Needed a blood transfusion a few years a go after she passed out. Hasn't had periods for 30 years. REVIEW OF SYSTEMS Per HPI and otherwise negative by full review of organ systems. ECOG PERFORMANCE STATUS: 0 PHYSICAL EXAMINATION: Vitals: BP 131/74 Pulse 80 Temp (Src) 97.5 (Temporal) Resp 16 Ht 5' 4.016 (1.63m) Wt 229 lb 9.6 oz (104.1kg) SpO2 99% BMI 39.39 kg/(m2). Body surface area is 2.17 meters squared. Exam limited to gross visualization where appropriate due to COVID-19. Gen.: This is an age-appropriate patient in no acute distress. Head: Appears atraumatic with no visible lesions. Eyes: Pupils equally round and reactive to light, extraocular muscles are intact. Neck: Supple. Mouth: Mucous membranes appeared to be moist. Respiratory: Appears to be respiring comfortably. Neurologic: Nonfocal to gross visualizati (more content not included)... Normal [facility] CBC W Auto Differential pane l (Bld)on 03-17-2022 Basophils (Bld) [#/Vol] 0.14 10*3/uL High <0.11 [facility] Comment on above: Order Comment: Speci men Type: BLOOD SPECIMENOrdering Facility: [facility] Address: [address] [place] [address] Performed By: #### 5 7021-8 ####[facility] LABCLIA [id number] [address] LABCLIA [id number] [place] [address] [place] Basophils/100 WBC (Bld) 1.0 % Normal [facility] Comment on above: Order Comment: Speci men Type: BLOOD SPECIMENOrdering Facility: [facility] Address: [address] [place] [address] Performed By: #### 5 7021-8 ####[facility] LABCLIA [id number] [address] LABCLIA [id number] [place] [address] [place] Differential cell count method Nom (Bld) Manual Normal [facility] Comment on above: Order Comment: Speci men Type: BLOOD SPECIMENOrdering Facility: [facility] Address: [address] [place] [address] Performed By: #### 5 7021-8 ####[facility] LABCLIA [id number] [address] LABCLIA [id number] [place] [address] [place] Eosinophils (Bld) [#/Vol] 0.14 10*3/uL Normal <0.46 [facility] Comment on above: Order Comment: Speci men Type: BLOOD SPECIMENOrdering Facility: [facility] Address: [address] [place] [address] Performed By: #### 5 7021-8 ####[facility] LABCLIA [id number] [address] LABCLIA [id number] [place] [address] [place] Eosinophils/100 WBC (Bld) 1.0 % Normal [facility] Comment on above: Order Comment: Speci men Type: BLOOD SPECIMENOrdering Facility: [facility] Address: [address] [place] [address] Performed By: #### 5 7021-8 ####[facility] LABCLIA [id number] [address] LABCLIA [id number] [place] [address] [place] Erythrocyte distribution width (RBC) [Ratio] 13.0 % Normal 11.5-15.0 [facility] Comment on above: Order Comment: Speci men Type: BLOOD SPECIMENOrdering Facility: [facility] Address: [address] [place] [address] Performed By: #### 5 7021-8 ####[facility] LABCLIA [id number] [address] LABCLIA [id number] [place] [address] [place] Hematocrit (Bld) [Volume fraction] 45.3 % Normal 36.0-46.0 [facility] Comment on above: Order Comment: Speci men Type: BLOOD SPECIMENOrdering Facility: [facility] Address: [address] [place] [address] Performed By: #### 5 7021-8 ####[facility] LABCLIA [id number] [place] [address] LABCLIA [id number] [place] [address] [place] Hemoglobin (Bld) [Mass/Vol] 15.1 g/dL Normal 11.5-15.5 [facility] Comment on above: Order Comment: Speci men Type: BLOOD SPECIMENOrdering Facility: [facility] Address: [address] [place] [address] Performed By: #### 5 7021-8 ####[facility] LABCLIA [id number] [address] LABCLIA [id number] [place] [address] [place] Lymphocytes (Bld) [#/Vol] 10.03 10*3/uL High 1.00-4.00 [facility] Comment on above: Order Comment: Speci men Type: BLOOD SPECIMENOrdering Facility: [facility] Address: [address] [place] [address] Performed By: #### 5 7021-8 ####[facility] LABCLIA [id number] [address] LABCLIA [id number] [place] [address] [place] Lymphocytes/100 WBC (Bld) 70.0 % Normal [facility] Comment on above: Order Comment: Speci men Type: BLOOD SPECIMENOrdering Facility: [facility] Address: [address] [place] [address] Performed By: #### 5 7021-8 ####[facility] LABCLIA [id number] [address] LABCLIA [id number] [place] [address] [place] MCH (RBC) [Entitic mass] 29.9 pg Normal 26.0-34.0 [facility] Comment on above: Order Comment: Speci men Type: BLOOD SPECIMENOrdering Facility: [facility] Address: [address] [place] [address] Performed By: #### 5 7021-8 ####[facility] LABCLIA [id number] [address] LABCLIA [id number] [place] [address] [place] MCHC (RBC) [Mass/Vol] 33.3 g/dL Normal 30.5-36.0 [facility] Comment on above: Order Comment: Speci men Type: BLOOD SPECIMENOrdering Facility: [facility] Address: [address] [place] [address] Performed By: #### 5 7021-8 ####[facility] LABCLIA [id number] [address] LABCLIA [id number] [place] [address] [place] MCV (RBC) [Entitic vol] 89.7 fL Normal 80.0-100.0 [facility] Comment on above: Order Comment: Speci men Type: BLOOD SPECIMENOrdering Facility: [facility] Address: [address] [place] [address] Performed By: #### 5 7021-8 ####[facility] LABCLIA [id number] [address] LABCLIA [id number] [place] [address] [place] Monocytes (Bld) [#/Vol] 0.57 10*3/uL Normal <0.87 [facility] Comment on above: Order Comment: Speci men Type: BLOOD SPECIMENOrdering Facility: [facility] Address: [address] [place] [address] Performed By: #### 5 7021-8 ####[facility] LABCLIA [id number] [place] [address] LABCLIA [id number] [place] [address] [place] Monocytes/100 WBC (Bld) 4.0 % Normal [facility] Comment on above: Order Comment: Speci men Type: BLOOD SPECIMENOrdering Facility: [facility] Address: [address] [place] [address] Performed By: #### 5 7021-8 ####[facility] LABCLIA [id number] [address] LABCLIA [id number] [place] [address] [place] Neutrophils (Bld) [#/Vol] 3.44 10*3/uL Normal 1.45-7.50 [facility] Comment on above: Order Comment: Speci men Type: BLOOD SPECIMENOrdering Facility: [facility] Address: [address] [place], [place] [address] Performed By: #### 5 7021-8 ####[facility] LABCLIA [id number] [address] LABCLIA [id number] [place] [address] [place] Neutrophils/100 WBC (Bld) 24.0 % Normal [facility] Comment on above: Order Comment: Speci men Type: BLOOD SPECIMENOrdering Facility: [facility] Address: [address] [place], [place] [address] Performed By: #### 5 7021-8 ####[facility] LABCLIA [id number] [address] LABCLIA [id number] [place] [address] [place] Nucleated RBC (Bld) [#/Vol] 10*3/uL Normal <0.01 [facility] Comment on above: Order Comment: Speci men Type: BLOOD SPECIMENOrdering Facility: [facility] Address: [address] [place] [address] Performed By: #### 5 7021-8 ####[facility] LABCLIA [id number] [address] LABCLIA [id number] [place] [address] [place] Nucleated RBC/100 WBC (Bld) [Ratio] 0.0 /100 WBC Normal [facility] Comment on above: Order Comment: Speci men Type: BLOOD SPECIMENOrdering Facility: [facility] Address: [address] [place] [address] Performed By: #### 5 7021-8 ####[facility] LABCLIA [id number] [address] LABCLIA [id number] [place] [address] [place] Ovalocytes LM Ql (Bld) Few Normal [facility] Comment on above: Order Comment: Speci men Type: BLOOD SPECIMENOrdering Facility: [facility] Address: [address] [place] [address] Performed By: #### 5 7021-8 ####[facility] LABCLIA [id number] [address] LABCLIA [id number] [place] [address] [place] Platelet mean volume (Bld) [Entitic vol] 11.1 fL Normal 9.0-12.7 [facility] Comment on above: Order Comment: Speci men Type: BLOOD SPECIMENOrdering Facility: [facility] Address: [address] [place] [address] Performed By: #### 5 7021-8 ####[facility] LABCLIA [id number] [address] [facility] LABCLIA [id number] [place] [address] [place] Platelets (Bld) [#/Vol] 264 10*3/uL Normal 150-400 [facility] Comment on above: Order Comment: Speci men Type: BLOOD SPECIMENOrdering Facility: [facility] Address: [address] [place] [address] Performed By: #### 5 7021-8 ####[facility] LABCLIA [id number] [address] LABCLIA [id number] [place] [address] [place] Platelets Estimate (Bld) [#/Vol] Adequate Normal [facility] Comment on above: Order Comment: Speci men Type: BLOOD SPECIMENOrdering Facility: [facility] Address: [address] [place], [place] [address] Performed By: #### 5 7021-8 ####[facility] LABCLIA [id number] [address] LABCLIA [id number] [place] [address] [place] RBC (Bld) [#/Vol] 5.05 10*6/uL Normal 3.90-5.20 [facility] Comment on above: Order Comment: Speci men Type: BLOOD SPECIMENOrdering Facility: [facility] Address: [address] [place], [place] [address] Performed By: #### 5 7021-8 ####[facility] LABCLIA [id number] [address] LABCLIA [id number] [place] [address] [place] RED CELL MORPH Reviewed: see result s of individual morphologies Normal [facility] Comment on above: Order Comment: Speci men Type: BLOOD SPECIMENOrdering Facility: [facility] Address: [address] Performed By: #### 5 7021-8 ####[facility] LABCLIA [id number] [place] [address] LABCLIA [id number] [place] [address] [place] WBC (Bld) [#/Vol] 14.33 10*3/uL High 3.70-11.00 [facility] Comment on above: Order Comment: Speci men Type: BLOOD SPECIMENOrdering Facility: [facility] Address: [address] [place] [address] Performed By: #### 5 7021-8 ####[facility] LABCLIA [id number] [place] [address] LABCLIA [id number] [place] [address] [place] Comprehensive metabolic 2000 panelon 03-17-2022 Albumin [Mass/Vol] 4.5 g/dL Normal 3.9-4.9 [facility] Comment on above: Order Comment: Speci men Type: BLOOD SPECIMENOrdering Facility: [facility] Address: [address] [place] [address] Performed By: #### 2 4323-8 ####[facility] LABCLIA [id number] [place] [address] ALP [Catalytic activity/Vol] 117 U/L Normal 34-123 [facility] Comment on above: Order Comment: Speci men Type: BLOOD SPECIMENOrdering Facility: [facility] Address: [address] [place] [address] Performed By: #### 2 4323-8 ####[facility] LABCLIA [id number] [place] [address] ALT [Catalytic activity/Vol] 13 U/L Normal 7-38 [facility] Comment on above: Order Comment: Speci men Type: BLOOD SPECIMENOrdering Facility: [facility] Address: [address] [address] Performed By: #### 2 4323-8 ####[facility] LABCLIA [id number] [place] [address] Anion gap [Moles/Vol] 8 mmol/L Low 9-18 [facility] Comment on above: Order Comment: Speci men Type: BLOOD SPECIMENOrdering Facility: [facility] Address: [address] [place] [address] Performed By: #### 2 4323-8 ####[facility] LABCLIA [id number] [place] [address] AST [Catalytic activity/Vol] 12 U/L Low 13-35 [facility] Comment on above: Order Comment: Speci men Type: BLOOD SPECIMENOrdering Facility: [facility] Address: [address] [place] [address] Performed By: #### 2 4323-8 ####[facility] LABCLIA [id number] [place] [address] Bilirubin [Mass/Vol] 1.5 mg/dL High 0.2-1.3 [facility] Comment on above: Order Comment: Speci men Type: BLOOD SPECIMENOrdering Facility: [facility] Address: [address] [place] [address] Performed By: #### 2 4323-8 ####[facility] LABCLIA [id number] [place] [address] Calcium [Mass/Vol] 9.7 mg/dL Normal 8.5-10.2 [facility] Comment on above: Order Comment: Speci men Type: BLOOD SPECIMENOrdering Facility: [facility] Address: [address] [place] [place] [address] Performed By: #### 2 4323-8 ####[facility] LABCLIA [id number] [place] [address] Chloride [Moles/Vol] 104 mmol/L Normal 97-105 [facility] Comment on above: Order Comment: Speci men Type: BLOOD SPECIMENOrdering Facility: [facility] Address: [address] [place] [address] Performed By: #### 2 4323-8 ####[facility] LABCLIA [id number] [place] [address] CO2 [Moles/Vol] 27 mmol/L Normal 22-30 [facility] Comment on above: Order Comment: Speci men Type: BLOOD SPECIMENOrdering Facility: [facility] Address: [address] [place] [address] Performed By: #### 2 4323-8 ####[facility] LABCLIA [id number] [place] [address] Creatinine [Mass/Vol] 0.86 mg/dL Normal 0.58-0.96 [facility] Comment on above: Order Comment: Speci men Type: BLOOD SPECIMENOrdering Facility: [facility] Address: [address] [place] [address] Performed By: #### 2 4323-8 ####[facility] LABCLIA [id number] [place] [address] ESTIMATED GLOMERULAR FILTRATION RATE 78 mL/min/1.73m??? Normal >=60 [facility] Comment on above: Order Comment: Speci men Type: BLOOD SPECIMENOrdering Facility: [facility] Address: [address] [place] [address] Result Comment: Genesis mated Glomerular Filtration Rate (eGFR) is calculated using the 2020 CKD-EPI creatinine equation. This equation utilizes serum creatinine, sex, and age as parameters. The creatinine assay has traceable calibration to isotope dilution-mass spectrometry. Refer to KDIGO guidelines for clinical interpretation. In patients with unstable renal function, e.g. those with acute kidney injury, the eGFR may not accurately reflect actual GFR. Performed By: #### 2 4323-8 ####[facility] LABCLIA [id number] [place] [address] Glucose [Mass/Vol] 90 mg/dL Normal 74-99 [facility] Comment on above: Order Comment: Speci men Type: BLOOD SPECIMENOrdering Facility: [facility] Address: [address] [place], [place] [address] Result Comment: The [place] [employer] Association (ADA) provides guidance for cutoff values for fasting glucose and random glucose. The ADA defines fasting as no caloric intake for at least 8 hours. Fasting plasma glucose results between 100 to 125 mg/dL indicate increased risk for diabetes (prediabetes). Fasting plasma glucose results greater than or equal to 126 mg/dL meet the criteria for diagnosis of diabetes. In the absence of unequivocal hyperglycemia, results should be confirmed by repeat testing. In a patient with classic symptoms of hyperglycemia or hyperglycemic crisis, random plasma glucose results greater than or equal to 200 mg/dL meet the criteria for diagnosis of diabetes. Reference: Standards of Medical Care in Diabetes 2016, [place] [employer] Association. Diabetes Care. 2016.39(Suppl 1). Performed By: #### 2 4323-8 ####[facility] LABCLIA [id number] [place] [address] Potassium [Moles/Vol] 4.1 mmol/L Normal 3.7-5.1 [facility] Comment on above: Order Comment: Speci men Type: BLOOD SPECIMENOrdering Facility: [facility] Address: [address] [place] [address] Performed By: #### 2 4323-8 ####[facility] LABCLIA [id number] [place] [address] Protein [Mass/Vol] 6.9 g/dL Normal 6.3-8.0 [facility] Comment on above: Order Comment: Speci men Type: BLOOD SPECIMENOrdering Facility: [facility] Address: [address] [place] [address] Performed By: #### 2 4323-8 ####[facility] LABCLIA [id number] [place] [address] Sodium [Moles/Vol] 139 mmol/L Normal 136-144 [facility] Comment on above: Order Comment: Speci men Type: BLOOD SPECIMENOrdering Facility: [facility] Address: [address] [address] Performed By: #### 2 4323-8 ####[facility] LABCLIA [id number] [place] [address] Urea nitrogen [Mass/Vol] 17 mg/dL Normal 7-21 [facility] Comment on above: Order Comment: Speci men Type: BLOOD SPECIMENOrdering Facility: [facility] Address: [address] [address] Performed By: #### 2 4323-8 ####[facility] LABCLIA [id number] [place] [address] Ferritin SerPl-mCncon 2022 Ferritin [Mass/Vol] 78.1 ng/mL Normal 14.7-205.1 [facility] Comment on above: Order Comment: Speci men Type: BLOOD SPECIMENOrdering Facility: [facility] Address: [address] Performed By: #### 2 132-9, 2284-8, 87629-2, 6-4 ####[facility] LABIA [id number] [place] [address] [place] Folate SerPl-mCncon 03-17-19 23 Folate [Mass/Vol] 6.0 ng/mL Normal >4.7 [facility] Comment on above: Order Comment: Speci men Type: BLOOD SPECIMENOrdering Facility: [facility] Address: [address] Performed By: #### 2 132-9, 2284-8, 69919-4, 6-4 ####[facility] LABIA [id number] [place] [address] [place] [employer] binding capaci ty panelon 03-17-2022 Iron [Mass/Vol] 148 ug/dL Normal 41-186 [facility] Comment on above: Order Comment: Speci men Type: BLOOD SPECIMENOrdering Facility: [facility] Address: [address] [place] [address] Performed By: #### 2 132-9, 2284-8, 80052-0, 6-4 ####[facility] LABCLIA [id number] [place] [address] [place] Iron binding capacity [Mass/Vol] 291 ug/dL Normal 232-386 [facility] Comment on above: Order Comment: Speci men Type: BLOOD SPECIMENOrdering Facility: [facility] Address: [address] [place] [address] Performed By: #### 2 132-9, 2284-8, 20447-6, 6-4 ####[facility] LABCLIA [id number] [place] [address] [place] Iron/TIBC [Molar ratio] 50.9 % Normal 15.0-57.0 [facility] Comment on above: Order Comment: Speci men Type: BLOOD SPECIMENOrdering Facility: [facility] Address: [address] [place] [address] Performed By: #### 2 132-9, 2284-8, 59436-6, 6-4 ####[facility] LABCLIA [id number] [place] [address] [place] Vit B12 [facility] Cobalamin (Vitamin B12) [Mass/Vol] 586 pg/mL Normal 232-1245 [facility] Comment on above: Order Comment: Speci men Type: BLOOD SPECIMENOrdering Facility: [facility] Address: [address] [place] [address] Performed By: #### 2 132-9, 2284-8, 38642-5, 6-4 ####[facility] LABCLIA [id number] [address] [address] [place] IMAGE-GUIDED PAP W/AGE BASED SCR PROTOCOLSon 08-30-2021 COMMENT Normal [facility] Comment on above: Result Comment: This order for age-based cervical cancer and STI screening follows ACOG guidelines(PB 168, 140, BUD040). See individual assays for performing site location. Performed By: #### 9 5277, 57624 #### [facility]-[address], [address] [place] [address] [employer] Supervisor: Elvin West MD Result Comment: EXPL ANATORY NOTE: The Pap is a screening test for cervical cancer. It is not a diagnostic test and is subject to false negative and false positive results. It is most reliable when a satisfactory sample, regularly obtained, is submitted with relevant clinical findings and history, and when the Pap result is evaluated along with historic and current clinical information. THINPREP TIS PAP AND HPV mRN A E6/E7 WITH REFLEX TO HPV 16,18/45on 08-30-2021 CLINICAL INFORMATION: Normal [facility] Comment on above: Result Comment: None given Performed By: #### 9 7090, 51082 #### [facility]-[place] [address] [employer] Supervisor: Elvin West MD COMMENT: Normal [facility] Comment on above: Result Comment: This Pap test has been evaluated with computer assisted technology. Performed By: #### 9 0415, 09170 #### [facility] [address] [employer] Supervisor: Elvin West MD MACHINE STUFFER: Normal [facility] Comment on above: Result Comment: KMB, CT(ASCP) CT screening location: [facility] [address]. Performed By: #### 9 3917, 87024 #### [facility] [address] [employer] Supervisor: Elvin West MD HPV mRNA E6/E7 Not detected Normal Not Detected [facility] Comment on above: Result Comment: Meth odology: Handle Bender-Mediated Amplification This assay detects E6/E7 viral messenger RNA (mRNA) from 14 high-risk HPV types (16,18,31,33,35,39,45,51,52,56,58,59,66,68). Cervical sources are required for HPV testing. If a vaginal source from a patient who has had a total hysterectomy with removal of cervix was submitted, please contact the testing laboratory for alternative testing options. For additional information, please refer to http://education.Sensorly/faq/IXW538h2 (This link if provided for information/ educational purposes only.) Performed By: #### 9 1414, 77487 #### [facility] [address] [employer] Supervisor: Elvin West MD INTERPRETATION/RESULT : Normal [facility] Comment on above: Result Comment: Nega tive for intraepithelial lesion or malignancy. Performed By: #### 9 8824, 77235 #### [facility] [address] [employer] Supervisor: Elvin West MD LMP: Normal [facility] Comment on above: Result Comment: None given Performed By: #### 9 1414, 64171 #### [facility] [address] [employer] Supervisor: Elvin West MD PREV. BX: Normal [facility] Comment on above: Result Comment: None given Performed By: #### 9 1414, 79018 #### [facility] [address] [employer] Supervisor: Elvin West MD PREV. PAP: Normal [facility] Comment on above: Result Comment: None given Performed By: #### 9 1414, 65630 #### [facility] [address] [employer] Supervisor: Elvin West MD SOURCE: Normal [facility] Comment on above: Result Comment: None given Performed By: #### 9 1414, 57201 #### [facility]-[address] [place] [address] [employer] Supervisor: Elvin West MD STATEMENT OF ADEQUACY: Normal [facility] Comment on above: Result Comment: Sati sfactory for evaluation. Endocervical/transformation zone component absent. Performed By: #### 9 1414, 44015 #### [facility], [address] [place] [address] [employer] Supervisor: Elvin West MD MG MAMM SCREEN 3D ION CADon 06-10-2021 MG MAMM SCREEN 3D ION CAD Patient: ERICA MARTINEZ Exam Date: 06/10/2021 : 1960 Gender:F Ordering : DR CANDACE AGUIRRE Admission #: [id number] Family : Order #: [id number] CLICK HERE TO VIEW EXAM RADIOLOGY REPORT PROCEDURE: MAMMOGRAM SCREENING 3D BILATERAL CAD COMPARISON: MG MAMM SCREEN ION W CAD, 02/08/2018. MG MAMM SCREEN ION W CAD, 11/13/2019. INDICATIONS: Screening mammography Calculator Name NCI Breast Cancer Risk Assessment Tool 5 Year Breast Cancer Risk 0.90% Lifetime Breast Cancer Risk 5.10% Personal Breast Cancer No Personal Ovarian Cancer No Treatments None Family Cancers Father with multiple myeloma cancer at age 70. LOCATION: [facility] BREAST COMPOSITION: Almost entirely fatty. FINDINGS: DIAGNOSTIC CATEGORY 1--NEGATIVE. NO CHANGE FROM COMPARISON ASSESSMENT. Scattered benign-appearing nodules are present. Scattered benign-appearing calcifications are present. Scattered benign-appearing lymph nodes are present. RIGHT BREAST: No significant suspicious finding. LEFT BREAST: No significant suspicious finding. RECOMMENDATIONS: ROUTINE MAMMOGRAM AND CLINICAL EVALUATION IN 12 MONTHS. PLEASE NOTE: A NORMAL MAMMOGRAM DOES NOT EXCLUDE THE POSSIBILITY OF BREAST CANCER. A CLINICALLY SUSPICIOUS PALPABLE LUMP SHOULD BE BIOPSIED. Dictated by: Adelina Taylor MD on 06/13/2021 at 07:41 Approved by: Adelina Taylor MD on 06/13/2021 at 07:43 Normal [facility] COMPREHENSIVE METABOLIC PANE Syed 01-04-2021 Albumin [Mass/Vol] 4.2 g/dL Normal 3.6-5.1 [facility] Comment on above: Performed By: #### 1 1906, 20573, 3009 #### [facility] [place] [address] [employer] Supervisor: Elvin West MD Albumin/Globulin [Mass ratio] 1.6 {ratio} Normal 1.0-2.5 [facility] Comment on above: Performed By: #### 1 7306, 45583, 7600 #### [facility] of [address], [address] [place] [address] [employer] Supervisor: Elvin West MD ALP [Catalytic activity/Vol] 108 U/L Normal 37-153 [facility] Comment on above: Performed By: #### 1 7306, 61665, 7600 #### [facility] of [place] [address] [employer] Supervisor: Elvin West MD ALT [Catalytic activity/Vol] 18 U/L Normal 6-29 [facility] Comment on above: Performed By: #### 1 7306, 45716, 0 #### [facility] of [place] [address] [employer] Supervisor: Elvin West MD AST [Catalytic activity/Vol] 16 U/L Normal 10-35 [facility] Comment on above: Performed By: #### 1 7306, 85909, 7600 #### [facility] of [place] [address] [employer] Supervisor: Elvin West MD Bilirubin [Mass/Vol] 1.5 mg/dL High 0.2-1.2 [facility] Comment on above: Performed By: #### 1 7306, 82046, 7600 #### [facility] of [place] [address] [employer] Supervisor: Elvin West MD BUN/CREATININE RATIO NOT APPLICABLE Normal 6-22 [facility] Comment on above: Performed By: #### 1 7306, 85727, 7600 #### [facility] of [place] [address] [employer] Supervisor: Elvin West MD Calcium [Mass/Vol] 9.5 mg/dL Normal 8.6-10.4 [facility] Comment on above: Performed By: #### 1 7306, 89965, 7600 #### [facility] [place] [address] [employer] Supervisor: Elvin West MD Chloride [Moles/Vol] 106 mmol/L Normal 98-110 [facility] Comment on above: Performed By: #### 1 7306, 90700, 7600 #### [facility] [address], [address] [place] [address] [employer] Supervisor: Elvin West MD CO2 [Moles/Vol] 29 mmol/L Normal 20-32 [facility] Comment on above: Performed By: #### 1 7306, 26358, 7600 #### [facility] [place] [address] [employer] Supervisor: Elvin West MD Creatinine [Mass/Vol] 0.66 mg/dL Normal 0.50-1.[address] [facility] Comment on above: Result Comment: For patients >49 years of age, the reference limit for Creatinine is approximately 13% higher for people identified as -[place]. Performed By: #### 1 7306, 02745, 7600 #### [facility] [place] [address] [employer] Supervisor: Elvin West MD eGFR NON-AFR. UGANDAN 97 mL/min/1.73m2 Normal > OR = 60 [facility] Comment on above: Performed By: #### 1 7306, 91973, 7600 #### [facility] [place] [address] [employer] Supervisor: Elvin West MD GFR/1.73 sq M.predicted among blacks MDRD (S/P/Bld) [Vol rate/Area] 113 mL/min/{1.73_m2} Normal > OR = 60 [facility] Comment on above: Performed By: #### 1 7306, 23727, 7600 #### [facility] [place] [address] [employer] Supervisor: Elvin West MD Globulin (S) [Mass/Vol] 2.6 g/dL Normal 1.9-3.7 [facility] Comment on above: Performed By: #### 1 7306, 10382, 0 #### [facility] of [place] [address] [employer] Supervisor: Elvin West MD Glucose [Mass/Vol] 85 mg/dL Normal 65-99 [facility] Comment on above: Result Comment: Fasting reference interval Performed By: #### 1 7306, 87426, 0 #### [facility] of [place] [address] [employer] Supervisor: Elvin West MD Potassium [Moles/Vol] 4.2 mmol/L Normal 3.5-5.[address] [facility] Comment on above: Performed By: #### 1 7306, , 0 #### [facility] of [place] [address] [employer] Supervisor: Elvin West MD Protein [Mass/Vol] 6.8 g/dL Normal 6.1-8.1 [facility] Comment on above: Performed By: #### 1 7306, 43996, 0 #### [facility] [place] [address] [employer] Supervisor: Elvin West MD Sodium [Moles/Vol] 141 mmol/L Normal 135-146 [facility] Comment on above: Performed By: #### 1 7306, 16814, 0 #### [facility] of [place] [address] [employer] Supervisor: Elvin West MD Urea nitrogen [Mass/Vol] 18 mg/dL Normal 7-25 [facility] Comment on above: Performed By: #### 1 7306, 35512, 7600 #### [facility] of [place] [address] [employer] Supervisor: Elvin West MD LIPID PANEL, [facility] [place] 11 Cholesterol [Mass/Vol] 168 mg/dL Normal <200 [facility] Comment on above: Order Comment: FASTI NG:YES FASTING: YES Performed By: #### 1 7306, 64441, 7600 #### [facility] [address], [address] [place] [address] [employer] Supervisor: Elvin West MD Cholesterol in HDL [Mass/Vol] 40 mg/dL Low > OR = 50 [facility] Comment on above: Order Comment: FASTI NG:YES FASTING: YES Performed By: #### 1 7306, 63724, 7600 #### [facility] [address], [address] [place] [address] [employer] Supervisor: Elvin West MD Cholesterol in LDL [Mass/Vol] 108 mg/dL High [facility] Comment on above: Order Comment: FASTI NG:YES FASTING: YES Result Comment: Refe rence range: <100 Desirable range <100 mg/dL for primary prevention; <70 mg/dL for patients with CHD or diabetic patients with > or = 2 CHD risk factors. LDL-C is now calculated using the Edis calculation, which is a validated novel method providing better accuracy than the Friedewald equation in the estimation of LDL-C. Saul SS et al. CHAR. 2013;310(19): 5578-6804 (http://education.Nafasi Systems/faq/WCM960) Performed By: #### 1 7306, 86221, 7600 #### [facility] [address], [address] [place] [address] [employer] Supervisor: Elvin West MD Cholesterol.total/Cho lesterol in HDL [Mass ratio] 4.2 {ratio} Normal <5.0 [facility] Comment on above: Order Comment: FASTI NG:YES FASTING: YES Performed By: #### 1 7306, 28353, 7600 #### [facility] [address], [address] [place] [address] [employer] Supervisor: Elvin West MD NON HDL CHOLESTEROL 128 mg/dL (calc) Normal <130 [facility] Comment on above: Order Comment: FASTI NG:YES FASTING: YES Result Comment: For patients with diabetes plus 1 major ASCVD risk factor, treating to a non-HDL-C goal of <100 mg/dL (LDL-C of <70 mg/dL) is considered a therapeutic option. Performed By: #### 1 7306, 81477, 7600 #### [facility] [address], [address] [place] [address] [employer] Supervisor: Elvin West MD Triglyceride [Mass/Vol] 108 mg/dL Normal <150 [facility] Comment on above: Order Comment: FASTI NG:YES FASTING: YES Performed By: #### 1 7306, 66233, 7600 #### [facility] [address], [address] [place] [address] [employer] Supervisor: Elvin West MD VITAMIN D,25-OH,TOTAL,IAon 1 03-06-2020 VITAMIN D,25-OH,TOTAL,IA 26 ng/mL Low 30-100 [facility] Comment on above: Result Comment: Kimberly min D Status 25-OH Vitamin D: Deficiency: <20 ng/mL Insufficiency: 20 - 29 ng/mL Optimal: > or = 30 ng/mL For 25-OH Vitamin D testing on patients on D2-supplementation and patients for whom quantitation of D2 and D3 fractions is required, the QuestAssureD(TM) 25-OH VIT D, (D2,D3), LC/MS/MS is recommended: order code 56685 (patients >2yrs). See Note 1 Note 1 For additional information, please refer to http://education.Gigamon.Centrify/faq/HSN868 (This link is being provided for informational/ educational purposes only.) Performed By: #### 1 7306, 29794, 7600 #### [facility] [address], [address] [place] [address] [employer] Supervisor: Elvin West MD XR ANKLE LEFT (MIN 3 VIEWS)o n 09-13-2018 XR ANKLE LEFT (MIN 3 VIEWS) EXAMINATION: 3 XRAY VIEWS OF THE LEFT ANKLE; 3 XRAY VIEWS OF THE LEFT FOOT 09/13/2018 9:15 am COMPARISON: None. HISTORY: ORDERING SYSTEM PROVIDED HISTORY: injury TECHNOLOGIST PROVIDED HISTORY: injury FINDINGS: There is no acute fracture or dislocation of the left ankle. The ankle mortise is grossly intact. There is small osteophyte at the tip of the medial malleolus. There is a small plantar bone spur. There is enthesophyte at the Achilles tendon attachment. There is soft tissue swelling, medial more than lateral. No radiopaque foreign body. There is no acute fracture or dislocation of the left foot. The Lisfranc alignment is intact. There are mild degenerative changes at the interphalangeal joints, the 1st MTP joint and the tarsal joints. There is mild hallux valgus deformity at the 1st MTP joint. There is a small plantar bone spur. There is enthesophyte at the Achilles tendon attachment. There is mild soft tissue swelling. No radiopaque foreign body. IMPRESSION: Soft tissue swelling in the left ankle, medial more than lateral. No acute fracture or dislocation of the left ankle. No acute fracture or dislocation in the left foot. Degenerative changes. Small plantar bone spur. Enthesophyte at the Achilles tendon attachment. Interpreted by: Bimal Whalen MD Signed by: Bimal Whalen MD 09/13/18 Final result Normal [facility] XR FOOT LEFT (MIN 3 VIEWS)on 09-13-2018 XR FOOT LEFT (MIN 3 VIEWS) EXAMINATION: 3 XRAY VIEWS OF THE LEFT ANKLE; 3 XRAY VIEWS OF THE LEFT FOOT 09/13/2018 9:15 am COMPARISON: None. HISTORY: ORDERING SYSTEM PROVIDED HISTORY: injury TECHNOLOGIST PROVIDED HISTORY: injury FINDINGS: There is no acute fracture or dislocation of the left ankle. The ankle mortise is grossly intact. There is small osteophyte at the tip of the medial malleolus. There is a small plantar bone spur. There is enthesophyte at the Achilles tendon attachment. There is soft tissue swelling, medial more than lateral. No radiopaque foreign body. There is no acute fracture or dislocation of the left foot. The Lisfranc alignment is intact. There are mild degenerative changes at the interphalangeal joints, the 1st MTP joint and the tarsal joints. There is mild hallux valgus deformity at the 1st MTP joint. There is a small plantar bone spur. There is enthesophyte at the Achilles tendon attachment. There is mild soft tissue swelling. No radiopaque foreign body. IMPRESSION: Soft tissue swelling in the left ankle, medial more than lateral. No acute fracture or dislocation of the left ankle. No acute fracture or dislocation in the left foot. Degenerative changes. Small plantar bone spur. Enthesophyte at the Achilles tendon attachment. Interpreted by: Bimal Whalen MD Signed by: Bimal Whalen MD 09/13/18 Final result Normal [facility] Vital Signs Date Time Vital Sign Value Performing Clinician Facility 11-24-2022 10:30-0400 Body temperature 97.9 [degF] Ma Sand Work Phone: [facility] 11-24-2022 10:30-0400 Diastolic blood pressure 62 mm[Hg] Ma Sand Work Phone: [facility] 11-24-2022 10:30-0400 Heart rate 59 /min Ma Sand Work Phone: [facility] 11-24-2022 10:30-0400 Respiratory rate 16 /min Ma Sand Work Phone: [facility] 11-24-2022 10:30-0400 Systolic blood pressure 144 mm[Hg] Ma Sand Work Phone: [facility] 10-19-2022 09:05-0400 Body height 162.6 cm Ma Sand Work Phone: [facility] 10-19-2022 09:05-0400 Body temperature 97.39 [degF] Ma Sand Work Phone: [facility] 10-19-2022 09:05-0400 Body weight 92.08 kg Ma Sand Work Phone: [facility] 10-19-2022 09:05-0400 Diastolic blood pressure 59 mm[Hg] Ma Sand Work Phone: [facility] 10-19-2022 09:05-0400 Heart rate 57 /min Ma Sand Work Phone: [facility] 10-19-2022 09:05-0400 Respiratory rate 16 /min Ma Sand Work Phone: [facility] 10-19-2022 09:05-0400 SaO2% (BldA) [Mass fraction] 97 % Ma Sand Work Phone: [facility] 10-19-2022 09:05-0400 Systolic blood pressure 124 mm[Hg] Ma Sand Work Phone: [facility] 09-22-2022 11:20-0400 Body height 162.6 cm Rudi Warner MD Work Phone: [facility] 09-22-2022 11:20-0400 Body temperature 97.7 [degF] Rudi Warner MD Work Phone: [facility] 09-22-2022 11:20-0400 Body weight 92.35 kg Rudi Warner MD Work Phone: [facility] 09-22-2022 11:20-0400 Diastolic blood pressure 76 mm[Hg] Rudi Warner MD Work Phone: [facility] 09-22-2022 11:20-0400 Heart rate 60 /min Rudi Warner MD Work Phone: [facility] 09-22-2022 11:20-0400 Respiratory rate 16 /min Rudi Warner MD Work Phone: [facility] 09-22-2022 11:20-0400 SaO2% (BldA) [Mass fraction] 98 % Rudi Warner MD Work Phone: [facility] 09-22-2022 11:20-0400 Systolic blood pressure 140 mm[Hg] Rudi Warner MD Work Phone: [facility] 08-11-2022 11:10-0400 Body height 162.6 cm Ma Sand Work Phone: [facility] 08-11-2022 11:10-0400 Body temperature 97.59 [degF] Ma Sand Work Phone: [facility] 08-11-2022 11:10-0400 Body weight 103.87 kg Ma Sand Work Phone: [facility] 08-11-2022 11:10-0400 Diastolic blood pressure 70 mm[Hg] Ma Sand Work Phone: [facility] 08-11-2022 11:10-0400 Heart rate 56 /min Ma Sand Work Phone: [facility] 08-11-2022 11:10-0400 Respiratory rate 16 /min Ma Sand Work Phone: [facility] 08-11-2022 11:10-0400 SaO2% (BldA) [Mass fraction] 100 % Ma Sand Work Phone: [facility] 08-11-2022 11:10-0400 Systolic blood pressure 139 mm[Hg] Ma Sand Work Phone: [facility] 06-08-2022 16:50-0400 Heart rate 51 /min Lata Timmis [facility] 06-08-2022 16:50-0400 SaO2% (BldA) [Mass fraction] 98 % Lata Timmis [facility] 06-08-2022 16:50-0400 Respiratory rate 20 /min Lata Timmis [facility] 06-08-2022 16:50-0400 Diastolic blood pressure 77 mm[Hg] Lata Timmis [facility] 06-08-2022 16:50-0400 Mean blood pressure 92 mm[Hg] Lata Timmis [facility] 06-08-2022 16:50-0400 Systolic blood pressure 122 mm[Hg] Lata Timmis [facility] 06-08-2022 16:50-0400 Body temperature 98.06 [degF] Lata Timmis [facility] 06-08-2022 15:41-0400 Heart rate 45 /min Lata Timmis [facility] 06-08-2022 15:41-0400 SaO2% (BldA) [Mass fraction] 97 % Lata Timmis [facility] 06-08-2022 15:41-0400 Diastolic blood pressure 81 mm[Hg] Lata Timmis [facility] 06-08-2022 15:41-0400 Mean blood pressure 96 mm[Hg] Lata Timmis [facility] 06-08-2022 15:41-0400 Systolic blood pressure 126 mm[Hg] Lata Timmis [facility] 06-08-2022 15:41-0400 Respiratory rate 16 /min Lata Timmis [facility] 06-08-2022 15:41-0400 Body temperature 98.06 [degF] Lata Timmis [facility] 06-08-2022 15:41-0400 Heart rate 55 /min Lata Timmis [facility] 06-08-2022 15:35-0400 Blood Pressure Location Lata Timmis [facility] 06-08-2022 15:35-0400 Body temperature 98.06 [degF] Lata Timmis [facility] 06-08-2022 15:35-0400 Diastolic blood pressure 65 mm[Hg] Lata Timmis [facility] 06-08-2022 15:35-0400 Heart rate 48 /min Lata Timmis [facility] 06-08-2022 15:35-0400 Mean blood pressure 90 mm[Hg] Lata Timmis [facility] 06-08-2022 15:35-0400 Respiratory rate 19 /min Lata Timmis [facility] 06-08-2022 15:35-0400 SaO2% (BldA) [Mass fraction] 95 % Lata Timmis [facility] 06-08-2022 15:35-0400 Systolic blood pressure 139 mm[Hg] Lata Timmis [facility] 06-08-2022 15:20-0400 Blood Pressure Location Lata Timmis [facility] 06-08-2022 15:20-0400 FIO2 35 % Lata Timmis [facility] 06-08-2022 15:20-0400 Mean blood pressure 73 mm[Hg] Lata Timmis [facility] 06-08-2022 15:20-0400 Respiratory rate 14 /min Lata Timmis [facility] 06-08-2022 15:15-0400 Blood Pressure Location Lata Timmis [facility] 06-08-2022 15:15-0400 FIO2 35 % Lata Timmis [facility] 06-08-2022 15:15-0400 Mean blood pressure 69 mm[Hg] Lata Timmis [facility] 06-08-2022 15:15-0400 Respiratory rate 17 /min Lata Timmis [facility] 06-08-2022 15:10-0400 FIO2 35 % Lata Timmis [facility] 06-08-2022 15:00-0400 Respiratory rate 9 /min Lata Timmis [facility] 06-08-2022 11:34-0400 Mean blood pressure 100 mm[Hg] Lata Timmis [facility] 06-08-2022 11:34-0400 Heart rate 58 /min Lata Trents [facility] 06-08-2022 11:32-0400 Body temperature 98.06 [degF] Lata Trents [facility] 05-19-2022 11:07-0400 Body height 162.6 cm Ma Sand Work Phone: [facility] 05-19-2022 11:07-0400 Body temperature 97.81 [degF] Ma Sand Work Phone: [facility] 05-19-2022 11:07-0400 Body weight 103.87 kg Ma Sand Work Phone: [facility] 05-19-2022 11:07-0400 Diastolic blood pressure 79 mm[Hg] Ma Sand Work Phone: [facility] 05-19-2022 11:07-0400 Heart rate 65 /min Ma Sand Work Phone: [facility] 05-19-2022 11:07-0400 Respiratory rate 16 /min Ma Sand Work Phone: [facility] 05-19-2022 11:07-0400 SaO2% (BldA) [Mass fraction] 100 % Ma Sand Work Phone: [facility] 05-19-2022 11:07-0400 Systolic blood pressure 151 mm[Hg] Ma Sand Work Phone: [facility] 03-24-2022 11:02-0500 Body height 162.6 cm Ma Sand Work Phone: [facility] 03-24-2022 11:02-0500 Body temperature 97.5 [degF] Ma Sand Work Phone: [facility] 03-24-2022 11:02-0500 Body weight 104.28 kg Ma Sand Work Phone: [facility] 03-24-2022 11:02-0500 Diastolic blood pressure 74 mm[Hg] Ma Sand Work Phone: [facility] 03-24-2022 11:02-0500 Heart rate 80 /min Ma Sand Work Phone: [facility] 03-24-2022 11:02-0500 Respiratory rate 16 /min Ma Sand Work Phone: [facility] 03-24-2022 11:02-0500 SaO2% (BldA) [Mass fraction] 99 % Ma Sand Work Phone: [facility] 03-24-2022 11:02-0500 Systolic blood pressure 131 mm[Hg] Ma Sand Work Phone: [facility] 03-24-2022 10:37-0500 Body height 162.6 cm Ailin Trevino APRN.PRODUCTION REPAIRER Work Phone: [facility] 03-24-2022 10:37-0500 Body temperature 97.5 [degF] Ailin Trevino APRN.PRODUCTION REPAIRER Work Phone: [facility] 03-24-2022 10:37-0500 Body weight 104.15 kg Ailin Trevino APRN.PRODUCTION REPAIRER Work Phone: [facility] 03-24-2022 10:37-0500 Diastolic blood pressure 74 mm[Hg] Ailin Trevino APRN.PRODUCTION REPAIRER Work Phone: [facility] 03-24-2022 10:37-0500 Heart rate 80 /min Ailin Trevino APRN.PRODUCTION REPAIRER Work Phone: [facility] 03-24-2022 10:37-0500 Respiratory rate 16 /min Ailin Trevino APRN.PRODUCTION REPAIRER Work Phone: [facility] 03-24-2022 10:37-0500 SaO2% (BldA) [Mass fraction] 99 % Ailin Trevino APRN.PRODUCTION REPAIRER Work Phone: [facility] 03-24-2022 10:37-0500 Systolic blood pressure 131 mm[Hg] Ailin Trevino APRN.PRODUCTION REPAIRER Work Phone: [facility] 02-24-2022 10:53-0500 Body height 162.6 cm Ma Sand Work Phone: [facility] 02-24-2022 10:53-0500 Body temperature 97.7 [degF] Ma Sand Work Phone: [facility] 02-24-2022 10:53-0500 Body weight 105.69 kg Ma Sand Work Phone: [facility] 02-24-2022 10:53-0500 Diastolic blood pressure 84 mm[Hg] Ma Sand Work Phone: [facility] 02-24-2022 10:53-0500 Heart rate 63 /min Ma Sand Work Phone: [facility] 02-24-2022 10:53-0500 Respiratory rate 16 /min Ma Sand Work Phone: [facility] 02-24-2022 10:53-0500 SaO2% (BldA) [Mass fraction] 96 % Ma Sand Work Phone: [facility] 02-24-2022 10:53-0500 Systolic blood pressure 148 mm[Hg] Ma Sand Work Phone: [facility] 12-30-2021 11:31-0500 Body height 162.6 cm Ma Sand Work Phone: [facility] 12-30-2021 11:31-0500 Body temperature 97.9 [degF] Ma Sand Work Phone: [facility] 12-30-2021 11:31-0500 Body weight 105.7 kg Ma Sand Work Phone: [facility] 12-30-2021 11:31-0500 Diastolic blood pressure 74 mm[Hg] Ma Sand Work Phone: [facility] 12-30-2021 11:31-0500 Heart rate 63 /min Ma Sand Work Phone: [facility] 12-30-2021 11:31-0500 Respiratory rate 16 /min Ma Sand Work Phone: [facility] 12-30-2021 11:31-0500 SaO2% (BldA) [Mass fraction] 93 % Ma Sand Work Phone: [facility] 12-30-2021 11:31-0500 Systolic blood pressure 130 mm[Hg] Ma Sand Work Phone: [facility] 11-04-2021 10:59-0400 Body height 162.6 cm Ma Sand Work Phone: [facility] 11-04-2021 10:59-0400 Body temperature 97.59 [degF] Ma Sand Work Phone: [facility] 11-04-2021 10:59-0400 Body weight 105.69 kg Ma Sand Work Phone: [facility] 11-04-2021 10:59-0400 Diastolic blood pressure 75 mm[Hg] Ma Sand Work Phone: [facility] 11-04-2021 10:59-0400 Heart rate 72 /min Ma Sand Work Phone: [facility] 11-04-2021 10:59-0400 Respiratory rate 16 /min Ma Sand Work Phone: [facility] 11-04-2021 10:59-0400 SaO2% (BldA) [Mass fraction] 97 % Ma Sand Work Phone: [facility] 11-04-2021 10:59-0400 Systolic blood pressure 131 mm[Hg] Ma Sand Work Phone: [facility] 10-07-2021 15:43-0400 Body height 162.6 cm Rudi Warner MD Work Phone: [facility] 10-07-2021 15:43-0400 Body temperature 97.39 [degF] Rudi Warner MD Work Phone: [facility] 10-07-2021 15:43-0400 Body weight 105.69 kg Rudi Warner MD Work Phone: [facility] 10-07-2021 15:43-0400 Diastolic blood pressure 72 mm[Hg] Rudi Warner MD Work Phone: [facility] 10-07-2021 15:43-0400 Heart rate 83 /min Rudi Warner MD Work Phone: [facility] 10-07-2021 15:43-0400 Respiratory rate 16 /min Rudi Warner MD Work Phone: [facility] 10-07-2021 15:43-0400 SaO2% (BldA) [Mass fraction] 96 % Rudi Warner MD Work Phone: [facility] 10-07-2021 15:43-0400 Systolic blood pressure 147 mm[Hg] Rudi Warner MD Work Phone: [facility] 08-26-2021 11:46-0400 Body height 162.6 cm Ma Sand Work Phone: [facility] 08-26-2021 11:46-0400 Body temperature 97.81 [degF] Ma Sand Work Phone: [facility] 08-26-2021 11:46-0400 Body weight 105.69 kg Ma Sand Work Phone: [facility] 08-26-2021 11:46-0400 Diastolic blood pressure 89 mm[Hg] Ma Sand Work Phone: [facility] 08-26-2021 11:46-0400 Heart rate 72 /min Ma Sand Work Phone: [facility] 08-26-2021 11:46-0400 Respiratory rate 16 /min Ma Sand Work Phone: [facility] 08-26-2021 11:46-0400 SaO2% (BldA) [Mass fraction] 97 % Ma Sand Work Phone: [facility] 08-26-2021 11:46-0400 Systolic blood pressure 153 mm[Hg] Ma Sand Work Phone: [facility] 07-29-2021 11:37-0400 Body temperature 97.59 [degF] Ma Sand Work Phone: [facility] 07-29-2021 11:37-0400 Diastolic blood pressure 82 mm[Hg] Ma Sand Work Phone: [facility] 07-29-2021 11:37-0400 Heart rate 56 /min Ma Sand Work Phone: [facility] 07-29-2021 11:37-0400 Respiratory rate 16 /min Ma Sand Work Phone: [facility] 07-29-2021 11:37-0400 SaO2% (BldA) [Mass fraction] 98 % Ma Sand Work Phone: [facility] 07-29-2021 11:37-0400 Systolic blood pressure 152 mm[Hg] Ma Sand Work Phone: [facility] 07-01-2021 11:43-0400 Body height 162.6 cm Ma Sand Work Phone: [facility] 07-01-2021 11:43-0400 Body temperature 97.5 [degF] Ma Sand Work Phone: [facility] 07-01-2021 11:43-0400 Body weight 105.69 kg Ma Sand Work Phone: [facility] 07-01-2021 11:43-0400 Diastolic blood pressure 89 mm[Hg] Ma Sand Work Phone: [facility] 07-01-2021 11:43-0400 Heart rate 78 /min Ma Sand Work Phone: [facility] 07-01-2021 11:43-0400 Respiratory rate 16 /min Ma Sand Work Phone: [facility] 07-01-2021 11:43-0400 SaO2% (BldA) [Mass fraction] 97 % Ma Sand Work Phone: [facility] 07-01-2021 11:43-0400 Systolic blood pressure 148 mm[Hg] Ma Sand Work Phone: [facility] 06-03-2021 11:43-0400 Body height 162.6 cm Ma Sand Work Phone: [facility] 06-03-2021 11:43-0400 Body temperature 98.01 [degF] Ma Sand Work Phone: [facility] 06-03-2021 11:43-0400 Body weight 105.69 kg Ma Sand Work Phone: [facility] 06-03-2021 11:43-0400 Diastolic blood pressure 69 mm[Hg] Ma Sand Work Phone: [facility] 06-03-2021 11:43-0400 Heart rate 72 /min Ma Sand Work Phone: [facility] 06-03-2021 11:43-0400 Respiratory rate 16 /min Ma Sand Work Phone: [facility] 06-03-2021 11:43-0400 SaO2% (BldA) [Mass fraction] 97 % Ma Sand Work Phone: [facility] 06-03-2021 11:43-0400 Systolic blood pressure 148 mm[Hg] Ma Sand Work Phone: [facility] Encounters Encounter Date Encounter Type Care Provider Facility Start: 02-26-2023 Orders Only Candace Aguirre MANAGER CATEGORY-SHOWER ROOM ATTENDANT [facility] Comment on above: Abnormal mammogram ( Primary Dx) Start: 02-23-2023 End: 02-23-2023 [facility] CANDACE AGUIRRE Facility:[facility] Start: 02-21-2023 Orders Only Bakari linda DO [facility] Comment on above: Abnormal mammogram ( Primary Dx) Start: 01-19-2023 End: 01-19-2023 [facility] CANDACE AGUIRRE Facility:[facility] Start: 01-19-2023 End: 01-19-2023 Nursing evaluation of patient and report Angeles Kowalski Work Phone: Hematology/Oncology Comment on above: Iron deficiency anem ia secondary to inadequate dietary iron intake (Primary Dx); Vitamin B12 deficiency anemia due to selective vitamin B12 malabsorption with proteinuria; Leukemoid reaction Start: 12-22-2022 End: 12-22-2022 [facility] RUDI WARNER Facility:[facility] Start: 11-24-2022 End: 11-24-2022 [facility] Start: 11-24-2022 End: 11-24-2022 Nursing evaluation of patient and report Angeles Kowalski Work Phone: Hematology/Oncology Comment on above: Iron deficiency anem ia secondary to inadequate dietary iron intake (Primary Dx); Vitamin B12 deficiency anemia due to selective vitamin B12 malabsorption with proteinuria; Leukemoid reaction Start: 10-19-2022 End: 10-19-2022 [facility] TIMMY Facility:[facility] Start: 10-19-2022 End: 10-19-2022 Nursing evaluation of patient and report Angeles Kowalski Work Phone: Hematology/Oncology Comment on above: Iron deficiency anem ia secondary to inadequate dietary iron intake (Primary Dx); Vitamin B12 deficiency anemia due to selective vitamin B12 malabsorption with proteinuria; Leukemoid reaction Start: 09-22-2022 End: 09-22-2022 [facility] CANDACE AGUIRRE Facility:[facility] Start: 09-22-2022 End: 09-22-2022 Nursing evaluation of patient and report Angeles Kowalski Work Phone: Hematology/Oncology Comment on above: Iron deficiency anem ia secondary to inadequate dietary iron intake (Primary Dx); Vitamin B12 deficiency anemia due to selective vitamin B12 malabsorption with proteinuria; Leukemoid reaction Start: 09-22-2022 End: 09-22-2022 Office outpatient visit 15 minutes Rudi Warner MD Work Phone: Hematology/Oncology Comment on above: Vitamin B12 deficien cy anemia due to selective vitamin B12 malabsorption with proteinuria (Primary Dx); Iron deficiency anemia secondary to inadequate dietary iron intake Start: 09-15-2022 Telephone encounter Rudi ceron MD Work Phone: Hematology/Oncology Comment on above: Orders Start: 08-11-2022 End: 08-11-2022 ambulatory CANDACE Wallace [facility] Facility:[facility] Start: 08-11-2022 End: 08-11-2022 Nursing evaluation of patient and report Angeles Kowalski Work Phone: Hematology/Oncology Comment on above: Iron deficiency anem ia secondary to inadequate dietary iron intake (Primary Dx); Vitamin B12 deficiency anemia due to selective vitamin B12 malabsorption with proteinuria; Leukemoid reaction Start: 07-14-2022 End: 07-14-2022 ambulatory CANDACE Wallace [facility] Facility:[facility] Start: 06-16-2022 End: 06-16-2022 ambulatory [facility] Facility:[facility] Start: 06-08-2022 End: 06-08-2022 ambulatory Lata Enda Debby Facility:[place] Start: 06-08-2022 End: 06-08-2022 Admission to same day surgery center [facility] Start: 06-01-2022 End: 06-01-2022 ambulatory CANDACE AGUIRRE Facility: Start: 05-19-2022 End: 05-19-2022 ambulatory [facility] Wallace [facility] Facility:[facility] Start: 05-19-2022 End: 05-19-2022 Nursing evaluation of patient and report Angeles Kowalski Work Phone: Hematology/Oncology Comment on above: Iron deficiency anem ia secondary to inadequate dietary iron intake (Primary Dx); Vitamin B12 deficiency anemia due to selective vitamin B12 malabsorption with proteinuria; Leukemoid reaction Start: 03-24-2022 End: 03-24-2022 Nursing evaluation of patient and report Angeles Kowalski Work Phone: Hematology/Oncology Comment on above: Iron deficiency anem ia secondary to inadequate dietary iron intake (Primary Dx); Vitamin B12 deficiency anemia due to selective vitamin B12 malabsorption with proteinuria; Leukemoid reaction Start: 03-24-2022 End: 03-24-2022 ambulatory Ailin Trevino APRN.PRODUCTION REPAIRER Work Phone: Hematology/Oncology Comment on above: Iron deficiency anem ia secondary to inadequate dietary iron intake (Primary Dx); Vitamin B12 deficiency anemia due to selective vitamin B12 malabsorption with proteinuria; Secondary polycythemia; History of Berry-en-Y gastric bypass Start: 03-24-2022 End: 03-24-2022 Patient encounter procedure Ailin Trevino APRN.PRODUCTION REPAIRER Work Phone: [facility] Start: 03-17-2022 End: 03-17-2022 ambulatory [facility] Facility:[facility] Start: 02-24-2022 End: 02-24-2022 Nursing evaluation of patient and report Angeles Kowalski Work Phone: Hematology/Oncology Comment on above: Iron deficiency anem ia secondary to inadequate dietary iron intake (Primary Dx); Vitamin B12 deficiency anemia due to selective vitamin B12 malabsorption with proteinuria; Leukemoid reaction Start: 01-27-2022 End: 01-27-2022 Nursing evaluation of patient and report Angeles Kowalski Work Phone: Hematology/Oncology Comment on above: Iron deficiency anem ia secondary to inadequate dietary iron intake (Primary Dx); Vitamin B12 deficiency anemia due to selective vitamin B12 malabsorption with proteinuria; Leukemoid reaction Start: 12-30-2021 End: 12-30-2021 Nursing evaluation of patient and report Angeles Kowalski Work Phone: Hematology/Oncology Comment on above: Iron deficiency anem ia secondary to inadequate dietary iron intake (Primary Dx); Vitamin B12 deficiency anemia due to selective vitamin B12 malabsorption with proteinuria; Leukemoid reaction Start: 11-04-2021 End: 11-04-2021 Nursing evaluation of patient and report Angeles Kowalski Work Phone: Hematology/Oncology Comment on above: Iron deficiency anem ia secondary to inadequate dietary iron intake (Primary Dx); Vitamin B12 deficiency anemia due to selective vitamin B12 malabsorption with proteinuria; Leukemoid reaction Start: 10-07-2021 End: 10-07-2021 ambulatory Rudi Warner MD Work Phone: Hematology/Oncology Comment on above: Vitamin B12 deficien cy anemia due to selective vitamin B12 malabsorption with proteinuria (Primary Dx); Iron deficiency anemia secondary to inadequate dietary iron intake; Secondary polycythemia Start: 10-07-2021 End: 10-07-2021 Patient encounter procedure Rudi Warner MD Work Phone: [facility] Start: 08-26-2021 End: 08-26-2021 Nursing evaluation of patient and report Angeles Kowalski Work Phone: Hematology/Oncology Comment on above: Iron deficiency anem ia secondary to inadequate dietary iron intake (Primary Dx); Vitamin B12 deficiency anemia due to selective vitamin B12 malabsorption with proteinuria; Leukemoid reaction Start: 07-29-2021 End: 07-29-2021 Nursing evaluation of patient and report Angeles Kowalski Work Phone: Hematology/Oncology Comment on above: Iron deficiency anem ia secondary to inadequate dietary iron intake (Primary Dx); Vitamin B12 deficiency anemia due to selective vitamin B12 malabsorption with proteinuria; Leukemoid reaction Start: 07-01-2021 End: 07-01-2021 Nursing evaluation of patient and report Angeles Kowalski Work Phone: Hematology/Oncology Comment on above: Iron deficiency anem ia secondary to inadequate dietary iron intake (Primary Dx); Vitamin B12 deficiency anemia due to selective vitamin B12 malabsorption with proteinuria; Leukemoid reaction Start: 06-10-2021 End: 06-11-2021 [facility] Facility: Start: 06-03-2021 End: 06-03-2021 Nursing evaluation of patient and report Angeles Kowalski Work Phone: Hematology/Oncology Comment on above: Iron deficiency anem ia secondary to inadequate dietary iron intake (Primary Dx); Vitamin B12 deficiency anemia due to selective vitamin B12 malabsorption with proteinuria; Leukemoid reaction Start: 06-08-2020 End: 06-08-2020 Chart abstracting Rudi Warner Work Phone: Hematology/Oncology Start: 06-04-2020 End: 06-04-2020 Patient encounter procedure External Provider [facility] Start: 06-04-2020 Results Only External Provider [facility] Start: 09-13-2018 End: 09-13-2018 Emergency department patient visit AURA Key OLIVAS [facility] Procedures Date Procedure Procedure Detail Performing Clinician Start: 02-05-2023 Adult depression scr eening assessment Bakari Jones DO Work Phone: Start: 06-08-2022 Reduction of fractur ed nasal bone Lata Guardado Start: 01-16-2022 Lipid 1996 panel - S angel or Plasma Ma Meghana Work Phone: Start: 06-04-2020 EXTERNAL LAB External P rovider Start: 09-13-2018 CRUTCHES AURA FINNEY ION Start: 09-13-2018 SHORT LEG OCL SPLINT SC JEMMA DEISY Start: 09-13-2018 Radex ankle complete minimum 3 views AURA DEISY Start: 09-13-2018 Radex foot complete minimum 3 views AURA OLIVAS Start: 01-23-2018 Colonoscopy Ma Meghana Work Phone: Cholecystectomy Lata Trent s Esophagogastrostomy, antesternal or antethoracic Lata Guardado Plan of Treatment Date Care Activity Detail Author Start: 01-16-2027 Lipid 1996 panel - S nagel or Plasma Lipid Screening [facility] Start: 01-16-2027 LIPID SCREEN LIPID SCREEN [facility] Start: 09-22-2025 DIABETES SCREEN DIABETES SCREEN [facility] Start: 09-22-2025 Diabetes Screening Diabetes Screenin [facility] Start: 03-17-2025 DIABETES SCREEN DIABETES SCREEN [facility] Start: 11-09-2024 Screening for malign ant neoplasm of colon Colonoscopy [facility] Comment on above: Postponed from 05/08 (Not Indicated) Start: 10-07-2024 DIABETES SCREEN DIABETES SCREEN [facility] Start: 04-04-2024 DIABETES SCREEN DIABETES SCREEN [facility] Start: 03-11-2024 Tobacco Counseling Tobacco Counselin neris [facility] Start: 02-06-2024 Adult BMI Follow Up Plan Adult BMI Follow Up Plan [facility] Start: 02-06-2024 Adult BMI Screening Adult BMI Screen ing [facility] Start: 02-06-2024 Depression Screening Depression Scre ening [facility] Start: 02-06-2024 Tobacco Screening Tobacco Screening [facility] Start: 05-07-2023 End: 05-07-2023 Patient encounter procedure 05/07/2023 9:00 AM EDT Office Visit [facility] [address] [facility] [place] [address] Candace Aguirre, MANAGER CATEGORY-SHOWER ROOM ATTENDANT [address] [facility] [place] [address] [facility] Start: 03-25-2023 End: 09-23-2023 CBC W Auto Differential panel - Blood CBC + DIFF Lab Routine Vitamin B12 deficiency anemia due to selective vitamin B12 malabsorption with proteinuria Iron deficiency anemia secondary to inadequate dietary iron intake Expected: 03/25/2023 (Approximate), Expires: 09/23/2023 [facility] Work Phone: Comment on above: Expected: 03/25/2023 (Approximate), Expires: 09/23/2023 Start: 03-25-2023 End: 09-23-2023 Cobalamin (Vitamin B12) [Mass/volume] in Serum or Plasma VITAMIN B12 BLOOD Lab Routine Vitamin B12 deficiency anemia due to selective vitamin B12 malabsorption with proteinuria Iron deficiency anemia secondary to inadequate dietary iron intake Expected: 03/25/2023 (Approximate), Expires: 09/23/2023 [facility] Work Phone: Comment on above: Expected: 03/25/2023 (Approximate), Expires: 09/23/2023 Start: 03-25-2023 End: 09-23-2023 Comprehensive metabolic 2000 panel - Serum or Plasma COMP METABOLIC PANEL Lab Routine Vitamin B12 deficiency anemia due to selective vitamin B12 malabsorption with proteinuria Iron deficiency anemia secondary to inadequate dietary iron intake Expected: 03/25/2023 (Approximate), Expires: 09/23/2023 [facility] [facility] Work Phone: Comment on above: Expected: 03/25/2023 (Approximate), Expires: 09/23/2023 Start: 03-25-2023 End: 09-23-2023 Ferritin [Mass/volume] in Serum or Plasma FERRITIN BLD Lab Routine Vitamin B12 deficiency anemia due to selective vitamin B12 malabsorption with proteinuria Iron deficiency anemia secondary to inadequate dietary iron intake Expected: 03/25/2023 (Approximate), Expires: 09/23/2023 [facility] Work Phone: Comment on above: Expected: 03/25/2023 (Approximate), Expires: 09/23/2023 Start: 03-25-2023 End: 09-23-2023 Folate [Mass/volume] in Serum or Plasma FOLATE SERUM Lab Routine Vitamin B12 deficiency anemia due to selective vitamin B12 malabsorption with proteinuria Iron deficiency anemia secondary to inadequate dietary iron intake Expected: 03/25/2023 (Approximate), Expires: 09/23/2023 [facility] Work Phone: Comment on above: Expected: 03/25/2023 (Approximate), Expires: 09/23/2023 Start: 03-25-2023 End: 09-23-2023 Iron and Iron binding capacity panel - Serum or Plasma IRON + TIBC Lab Routine Vitamin B12 deficiency anemia due to selective vitamin B12 malabsorption with proteinuria Iron deficiency anemia secondary to inadequate dietary iron intake Expected: 03/25/2023 (Approximate), Expires: 09/23/2023 [facility] Work Phone: Comment on above: Expected: 03/25/2023 (Approximate), Expires: 09/23/2023 Start: 02-26-2023 End: 02-27-2024 MG Breast duct - left Views W contrast intra duct Mammography diagnostic unilateral left with CAD Imaging Routine Abnormal mammogram Expected: 02/26/2023, Expires: 02/27/2024 [employer] Work Phone: Comment on above: Expected: 02/26/2023 , Expires: 02/27/2024 Start: 02-26-2023 End: 02-27-2024 US Breast - left limited Ultrasound breast limited left Imaging Routine Abnormal mammogram Expected: 02/26/2023, Expires: 02/27/2024 [employer] [facility] Comment on above: Expected: 02/26/2023 , Expires: 02/27/2024 Start: 02-21-2023 End: 02-22-2024 MG Breast duct - left Views W contrast intra duct Mammography diagnostic unilateral left with CAD Imaging Routine Abnormal mammogram Expected: 02/21/2023, Expires: 02/22/2024 [facility] Work Phone: Comment on above: Expected: 02/21/2023 , Expires: 02/22/2024 Start: 10-20-2022 Covid-19 Vaccine () Covid-19 Vaccine () [facility] Start: 10-20-2022 Influenza vaccination [facility] Start: 09-21-2022 End: 11-21-2022 CBC W Auto Differential panel - Blood CBC + DIFF Lab Routine Iron deficiency anemia secondary to inadequate dietary iron intake Vitamin B12 deficiency anemia due to selective vitamin B12 malabsorption with proteinuria Secondary polycythemia History of Berry-en-Y gastric bypass Expected: 09/21/2022, Expires: 11/21/2022 [facility] Work Phone: Comment on above: Expected: 09/21/2022 , Expires: 11/21/2022 Start: 09-21-2022 End: 11-21-2022 Cobalamin (Vitamin B12) [Mass/volume] in Serum or Plasma VITAMIN B12 BLOOD Lab Routine Iron deficiency anemia secondary to inadequate dietary iron intake Vitamin B12 deficiency anemia due to selective vitamin B12 malabsorption with proteinuria Secondary polycythemia History of Berry-en-Y gastric bypass Expected: 09/21/2022, Expires: 11/21/2022 [facility] Work Phone: Comment on above: Expected: 09/21/2022 , Expires: 11/21/2022 Start: 09-21-2022 End: 11-21-2022 Comprehensive metabolic 2000 panel - Serum or Plasma COMP METABOLIC PANEL Lab Routine Iron deficiency anemia secondary to inadequate dietary iron intake Vitamin B12 deficiency anemia due to selective vitamin B12 malabsorption with proteinuria Secondary polycythemia History of Berry-en-Y gastric bypass Expected: 09/21/2022, Expires: 11/21/2022 [facility] Work Phone: Comment on above: Expected: 09/21/2022 , Expires: 11/21/2022 Start: 09-21-2022 End: 11-21-2022 Ferritin [Mass/volume] in Serum or Plasma FERRITIN BLD Lab Routine Iron deficiency anemia secondary to inadequate dietary iron intake Vitamin B12 deficiency anemia due to selective vitamin B12 malabsorption with proteinuria Secondary polycythemia History of Berry-en-Y gastric bypass Expected: 09/21/2022, Expires: 11/21/2022 [facility] Work Phone: Comment on above: Expected: 09/21/2022 , Expires: 11/21/2022 Start: 09-21-2022 End: 11-21-2022 Folate [Mass/volume] in Serum or Plasma FOLATE SERUM Lab Routine Iron deficiency anemia secondary to inadequate dietary iron intake Vitamin B12 deficiency anemia due to selective vitamin B12 malabsorption with proteinuria Secondary polycythemia History of Berry-en-Y gastric bypass Expected: 09/21/2022, Expires: 11/21/2022 [facility] Work Phone: Comment on above: Expected: 09/21/2022 , Expires: 11/21/2022 Start: 09-21-2022 End: 11-21-2022 Iron and Iron binding capacity panel - Serum or Plasma IRON + TIBC Lab Routine Iron deficiency anemia secondary to inadequate dietary iron intake Vitamin B12 deficiency anemia due to selective vitamin B12 malabsorption with proteinuria Secondary polycythemia History of Berry-en-Y gastric bypass Expected: 09/21/2022, Expires: 11/21/2022 [facility] Work Phone: Comment on above: Expected: 09/21/2022 , Expires: 11/21/2022 Start: 2022 RSV Vaccine (1 - 1-d ose 60+ series) RSV Vaccine (1 - 1-dose 60+ series) [facility] Start: 04-09-2022 End: 10-07-2022 CBC W Auto Differential panel - Blood CBC + DIFF Lab Routine Vitamin B12 deficiency anemia due to selective vitamin B12 malabsorption with proteinuria Iron deficiency anemia secondary to inadequate dietary iron intake Secondary polycythemia Expected: 04/09/2022 (Approximate), Expires: 10/07/2022 [facility] Work Phone: Comment on above: Expected: 04/09/2022 (Approximate), Expires: 10/07/2022 Start: 04-09-2022 End: 10-07-2022 Cobalamin (Vitamin B12) [Mass/volume] in Serum or Plasma VITAMIN B12 BLOOD Lab Routine Vitamin B12 deficiency anemia due to selective vitamin B12 malabsorption with proteinuria Iron deficiency anemia secondary to inadequate dietary iron intake Secondary polycythemia Expected: 04/09/2022 (Approximate), Expires: 10/07/2022 [facility] Work Phone: Comment on above: Expected: 04/09/2022 (Approximate), Expires: 10/07/2022 Start: 04-09-2022 End: 10-07-2022 Comprehensive metabolic 2000 panel - Serum or Plasma COMP METABOLIC PANEL Lab Routine Vitamin B12 deficiency anemia due to selective vitamin B12 malabsorption with proteinuria Iron deficiency anemia secondary to inadequate dietary iron intake Secondary polycythemia Expected: 04/09/2022 (Approximate), Expires: 10/07/2022 [facility] Work Phone: Comment on above: Expected: 04/09/2022 (Approximate), Expires: 10/07/2022 Start: 04-09-2022 End: 10-07-2022 Ferritin [Mass/volume] in Serum or Plasma FERRITIN BLD Lab Routine Vitamin B12 deficiency anemia due to selective vitamin B12 malabsorption with proteinuria Iron deficiency anemia secondary to inadequate dietary iron intake Secondary polycythemia Expected: 04/09/2022 (Approximate), Expires: 10/07/2022 [facility] Work Phone: Comment on above: Expected: 04/09/2022 (Approximate), Expires: 10/07/2022 Start: 04-09-2022 End: 10-07-2022 Folate [Mass/volume] in Serum or Plasma FOLATE SERUM Lab Routine Vitamin B12 deficiency anemia due to selective vitamin B12 malabsorption with proteinuria Iron deficiency anemia secondary to inadequate dietary iron intake Secondary polycythemia Expected: 04/09/2022 (Approximate), Expires: 10/07/2022 [facility] Work Phone: Comment on above: Expected: 04/09/2022 (Approximate), Expires: 10/07/2022 Start: 04-09-2022 End: 10-07-2022 Iron and Iron binding capacity panel - Serum or Plasma IRON + TIBC Lab Routine Vitamin B12 deficiency anemia due to selective vitamin B12 malabsorption with proteinuria Iron deficiency anemia secondary to inadequate dietary iron intake Secondary polycythemia Expected: 04/09/2022 (Approximate), Expires: 10/07/2022 [facility] Work Phone: Comment on above: Expected: 04/09/2022 (Approximate), Expires: 10/07/2022 Start: 02-19-2022 DEPRESSION ASSESSMENT DEPRESSION ASS [facility] Start: 10-20-2021 Influenza vaccination [facility] Start: 02-19-2021 [facility] Start: 11-10-2020 COVID-19 VACCINE (3 - Booster for Pfizer series) COVID-19 VACCINE (3 - Booster for Pfizer series) [facility] Start: 10-20-2020 Influenza vaccination INFLUENZ A (Season Ended) [facility] Start: 08-05-2020 COVID-19 VACCINE (3 - Booster for Pfizer series) COVID-19 VACCINE (3 - Booster for Pfizer series) [facility] Start: 08-05-2020 COVID-19 VACCINE (3 - Pfizer series) COVID-19 VACCINE (3 - Pfizer series) [facility] Start: 01-23-2019 Colonoscopy COLONOSCOPY [facility] Start: 01-23-2019 COLORECTAL CANCER SCREENING COLORECTAL CANCER SCREENING [facility] Start: 2012 Administration of varicella zoster vaccine Zoster (Shingles) [facility] (1 of 2) [facility] Start: 2012 Screening for malign ant neoplasm of colon [facility] Start: 2012 SHINGRIX VACCINE (1 of 2) SHINGRIX VACCINE (1 of 2) [facility] Start: 05-09-2007 COLOGUARD (FIT-DNA) COLOGUARD (FIT-D NA) [facility] Start: 05-09-[address] COLONOGRAPHY [facility] Start: 05-09-2007 DIABETES SCREEN DIABETES SCREEN [facility] Start: 05-09-2007 FECAL OCCULT BLOOD FECAL OCCULT BLOO D [facility] Start: 05-09-2007 LIPID SCREEN LIPID SCREEN [facility] Start: 05-09-2007 SIGMOIDOSCOPY SIGMOIDOSCOPY [facility] Start: 2002 Mammography [facility] Start: 1992 HPV TESTING HPV TESTING [facility] Start: 05-09-1983 PAP TESTING PAP TESTING [facility] Start: 1981 DTaP,Tdap and Td Vaccines (1 - Tdap) DTaP,Tdap and Td Vaccines (1 - Tdap) [facility] Start: 1981 Urine microalbumin profile [facility] Start: 1980 HEPATITIS C SCREENING HEPATITIS C SC REENING [facility] Start: 1980 HIV SCREENING HIV SCREENING [facility] Start: 1974 Adult depression screening assessment DEPRESSION SCREENING [facility] Immunizations Immunization Date Immunization Notes Care Provider [facility] 12-08-2022 influenza, injectabl e, quadrivalent, preservative free Bakari Furlong DO Work Phone: [facility] 06-10-2020 COVID-19 vaccine, ag e 12+ yr (PFIZER-BIONTECH - PURPLE TOP) [employer] Work Phone: [facility] 05-21-2020 COVID-19 vaccine, ag e 12+ yr (PFIZER-BIONTECH - PURPLE TOP) [employer] Work Phone: [facility] 05-20-2020 COVID-19, mRNA, LNP- S, PF, 30mcg/0.3mL Dose Bakari Furlong DO Work Phone: [facility] Payers Date Payer Category Payer Unknown [id number] 2020 Unknown [id number] 2018 Unknown [id number] 1962 Unknown [id number] 1962 Unknown [id number] 1962 Unknown [id number] 1962 Unknown [id number] 1962 Unknown [id number] 1959 Unknown [id number] Unknown [id number] Social History Date Type Detail Facility Tobacco smoking stat [facility] Unknown if ever smoked [facility] Start: 1960 Sex Assigned At Not on file [facility] Start: 05-24-2021 End: 12-30-2021 Exposure to SARS-CoV-2 (event) Not sure [facility] Start: 06-08-2020 End: 03-24-2022 Tobacco smoking status NHIS Former smoker [facility] End: 02-19-2022 History of tobacco use Cigarette Smoker [facility] Start: 06-08-2020 End: 09-22-2022 Alcohol intake Ex-drinker (finding) [facility] End: 02-19-2022 History of tobacco use Current smoker [facility] History of tobacco use Passive smoker [facility] Start: 10-07-2021 End: 09-08-2022 Tobacco use and exposure Smokeless tobacco non-user [facility] Start: 04-01-2020 End: 03-24-2022 Sex Assigned At Female [facility] Start: 04-01-2020 End: 03-24-2022 History of Social function [facility] National Score (1-100), lower number is lower risk 80 [facility] Start: 09-08-2022 [facility] Start: 02-05-2023 Alcohol intake 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 [id number] Start: 02-01-2022 Functional Status Date Assessment Result Facility 06-08-2022 Functional Status No [facility] Clinical Notes 06-03-2021 to 02-26-2023 Candace AguirreDONY - 02/26/2023 8:28 AM Jhon Waters Ma - 01/19/2023 10:31 AM Jhon Waters Ma - 10/19/2022 9:15 AM EDTPatient Instructions Note Date & Type Note Facility 02-26-2023 History of Presen t illness Narrative New testing ordered - Candace Harris DONY Aguirre 02/26/23831 documented in this encounter [facility] 02-23-2023 Note HNO ID: [id number] Author: ?, ?, ? Service: ? Author Type: ? Type: Progress Notes Filed: 02/23/2023 10:42 Note Text: Patient Identification confirmed: yes. Injection given and documented on MAR per provider order. Sophy Mirza [facility] 01-19-2023 Nurse Note Patient Identification confirmed: yes. Injection given and documented on MAR per provider order. Jhon Turcios Ma documented in this encounter [facility] 10-19-2022 Nurse Note Patient Identification confirmed: yes. Injection given and documented on MAR per provider order. Jhon Turcios Ma documented in this encounter [facility] 09-22-2022 Note HNO ID: [id number] Author: Rudi Warner MD Service: ? Author Type: Physician Type: Progress Notes Filed: 09/24/2022 9:32 AM Note Text: NAME: Erica Martinez [facility] NO.: [id number] DATE OF SERVICE: September 22, 2022 (Timmy) Some elements in this clinic note that are critical to medical decision making have been carefully reviewed and included from a prior clinic note dated: March 24, 2022 (Pramod) Referring Provider: Candace Aguirre Additional Clinicians involved in Erica Martinez's care: CC: Consultation for leukocytosis ASSESSMENT: 62 year old woman with prior history of gastric bypass and severe iron deficiency as well as B12 deficiency with likely compensatory elevation in white blood cells. She has a normal white blood cell count differential ratio and so all of her absolute numbers looks elevated. She also has very poor dentition from years of chewing on ice due to pica. Now s/p dental extraction. Continue B12 replacement. Pica resolved. Iron studies show no need for additional replacement. Folate levels are decreased but still WNL - not anemic can hold off on replacement. PLAN: B12 shot today and monthly. Follow up in 6 months - labs 1 week ahead. TREATMENT TO DATE: 06/18/2020 - current: B12 injection 06/18/2020: Ferric Derisomaltose - patient is allergic. HPI: Updated Visit, September 22, 2022: Doing well with B12 injections. Anemia is resolved. Contiue B12. Iron levels pending - I don't suspect she'll need anything. Coneinue monthly treatment. Still grieving her brother Josh. Her recovered from a AMI. She is still smoking which is likely contributing to her high WBCs. Updated Visit, March 24, 2022: Erica Martinez returns for follow-up and her monthly B12 injection. Since her last visit there has been no significant medical changes. She states that she quit smoking approximately 4 weeks ago. She offers no particular complaints today. She denies fevers, chills, night sweats and signs/symptoms of infection. No bleeding or abnormal bruising she denies any lumps or bumps. She was started on saxenda for weight loss. Updated Visit, October 07, 2021: Resumed smoking after her mother passed 1 year ago. Is trying to quit. Noted based on rising Hgb/Hct with evidence of secondary polycythemia. Otherwise working very hard and feels great after b12 shots. She will need to continue supplementation given her gastric bypass. Updated Visit, April 04, 2021: Erica is 60 and returns in follow up for her B12 defency anemia. She always feels much improved after getting her shot. Labs are markedly improved. She will need to continue supplementation given her gastric bypass. 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 Updated Visit, October 15, 2020: Feels much better after B12 shots. Anemia is improved. She had much more benefit from B12 than from Iron. Just had some teeth taken out and recovering from that. Updated Visit, July 16, 2020: Developed a severe rash following monoferric (now resolved)- will need to use venofer in the future. Labs show improved MCV, pica to ice is improved. No need for b12 today. Overall feels better. Initial Visit, June 09, 2020: Erica Martinez presents today Hematology and Oncology evaluation. She is a 60 year old female who has had a gastric bypass in the mid presents on referral for elevated white blood cell count. I reviewed the rest of her laboratories that are noted in the electronic medical records and noted mild anemia with microcytosis, severely decreased iron indices and ferritin, and marked decrease in B12 levels. Given these findings she likely has a reactive process. She also reports that for years she has had pica to ice. She states that this is a really wound her teeth. She is also an active smoker up until July 2019 when her mother . The patient's brother is also my patient. He has CLL which this does not appear to be. I have asked her to stop taking her B12 and iron tablets. Fatigued white count normal % but continues to elevate. Needed a blood transfusion a few years a go after she passed out. Hasn't had periods for 30 years. REVIEW OF SYSTEMS Per HPI and otherwise negative by full review of organ systems. ECOG PERFORMANCE STATUS: 0 PHYSICAL EXAMINATION: Vitals: BP 140/76 Pulse 60 Temp (Src) 97.7 (Temporal) Resp 16 Ht 5' 4.016 (1.63m) Wt 203 lb 9.6 oz (92.4kg) SpO2 98% BMI 34.93 kg/(m2). Body surface area is 2.04 meters squared. Exam limited to gross visualization where appropriate. Gen.: This is an age-appropriate patient in no acute distress. Head: Appears atraumatic with no visible lesions. Eyes: Pupils equally round and reactive to light, extraocular muscles are intact. Neck: Supple. Respiratory: Appears to be respiring comfortably. Neurologic: Nonfocal to gross visualization. Alert and oriented ?3. Psychiatric: No evidence of inappropriat (more content not included)... [facility] 09-22-2022 Instructions Rudi Warner MD - 09/22/2022 11:56 AM EDT B12 shot today and monthly. Follow up in 6 months - labs 1 week ahead. documented in this encounter [facility] 09-22-2022 History of Presen t illness Narrative Images from the original note were not included. NAME: Erica Martinez [facility] NO.: [id number] DATE OF SERVICE: September 22, 2022 (Timmy) Some elements in this clinic note that are critical to medical decision making have been carefully reviewed and included from a prior clinic note dated: March 24, 2022 (Pramod) Referring Provider: Candace Aguirre Additional Clinicians involved in Erica Martinez's care: CC: Consultation for leukocytosis ASSESSMENT: 62 year old woman with prior history of gastric bypass and severe iron deficiency as well as B12 deficiency with likely compensatory elevation in white blood cells. She has a normal white blood cell count differential ratio and so all of her absolute numbers looks elevated. She also has very poor dentition from years of chewing on ice due to pica. Now s/p dental extraction. Continue B12 replacement. Pica resolved. Iron studies show no need for additional replacement. Folate levels are decreased but still WNL - not anemic can hold off on replacement. PLAN: B12 shot today and monthly. Follow up in 6 months - labs 1 week ahead. TREATMENT TO DATE: 06/18/2020 - current: B12 injection 06/18/2020: Ferric Derisomaltose - patient is allergic. HPI: Updated Visit, September 22, 2022: Doing well with B12 injections. Anemia is resolved. Contiue B12. Iron levels pending - I don't suspect she'll need anything. Coneinue monthly treatment. Still grieving her brother Josh. Her recovered from a AMI. She is still smoking which is likely contributing to her high WBCs. Updated Visit, March 24, 2022: Erica Martinez returns for follow-up and her monthly B12 injection. Since her last visit there has been no significant medical changes. She states that she quit smoking approximately 4 weeks ago. She offers no particular complaints today. She denies fevers, chills, night sweats and signs/symptoms of infection. No bleeding or abnormal bruising she denies any lumps or bumps. She was started on saxenda for weight loss. Updated Visit, October 07, 2021: Resumed smoking after her mother passed 1 year ago. Is trying to quit. Noted based on rising Hgb/Hct with evidence of secondary polycythemia. Otherwise working very hard and feels great after b12 shots. She will need to continue supplementation given her gastric bypass. Updated Visit, April 04, 2021: Erica is 60 and returns in follow up for her B12 defency anemia. She always feels much improved after getting her shot. Labs are markedly improved. She will need to continue supplementation given her gastric bypass. 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 Updated Visit, October 15, 2020: Feels much better after B12 shots. Anemia is improved. She had much more benefit from B12 than from Iron. Just had some teeth taken out and recovering from that. Updated Visit, July 16, 2020: Developed a severe rash following monoferric (now resolved)- will need to use venofer in the future. Labs show improved MCV, pica to ice is improved. No need for b12 today. Overall feels better. Initial Visit, June 09, 2020: Erica Martinez presents today Hematology and Oncology evaluation. She is a 60 year old female who has had a gastric bypass in the mid presents on referral for elevated white blood cell count. I reviewed the rest of her laboratories that are noted in the electronic medical records and noted mild anemia with microcytosis, severely decreased iron indices and ferritin, and marked decrease in B12 levels. Given these findings she likely has a reactive process. She also reports that for years she has had pica to ice. She states that this is a really wound her teeth. She is also an active smoker up until July 2019 when her mother . The patient's brother is also my patient. He has CLL which this does not appear to be. I have asked her to stop taking her B12 and iron tablets. Fatigued white count normal % but continues to elevate. Needed a blood transfusion a few years a go after she passed out. Hasn't had periods for 30 years. REVIEW OF SYSTEMS Per HPI and otherwise negative by full review of organ systems. ECOG PERFORMANCE STATUS: 0 PHYSICAL EXAMINATION: Vitals: BP 140/76 Pulse 60 Temp (Src) 97.7 (Temporal) Resp 16 Ht 5' 4.016 (1.63m) Wt 203 lb 9.6 oz (92.4kg) SpO2 98% BMI 34.93 kg/(m^2). Body surface area is 2.04 meters squared. Exam limited to gross visualization where appropriate. Gen.: This is an age-appropriate patient in no acute distress. Head: Appears atraumatic with no visible lesions. Eyes: Pupils equally round and reactive to light, extraocular muscles are intact. Neck: Supple. Respiratory: Appears to be respiring comfortably. Neurologic: Nonfocal to gross visualization. Alert and oriented 3. Psychiatric: No evidence of inappropriate anxiety or depression. Skin: Visible areas of skin without rash, lesions, wounds or petechiae. ALLERGIES: ALLERGIES Allergen Reactions Monoferric [Ferric * Itching MEDICATIONS: liraglutide (SAXENDA) 3 mg/0.5 mL (18 mg/3 mL) pen injector Inject 3 mg subcutaneously. Cholecalciferol, Vitamin D3, 50 mcg (2,000 unit) cap q 24 HR. topiramate (TOPAMAX) 25 mg tablet Benzonatate 200 mg capsule benzonatate 200 mg capsule Take 1 capsule 3 times a day by oral route for 10 days. ferrous sulfate 325 mg (65 mg iron) tablet Take 1 tablet by mouth once daily. cyanocobalamin (VITAMIN B-12) 1,000 mcg tab Take 1,000 mcg by mouth once daily. docusate sodium (COLACE) 100 mg capsule TAKE 1 CAPSULE BY MOUTH EVERY DAY NEEDED Phentermine HCl 37.5 mg tablet Take 37.5 mg by mouth once daily. (Patient not taking: Reported on 09/22/2022) LABORATORY VALUES: WBC (k/uL) Date Value 09/22/2022 13.67 (H) RBC (m/uL) Date Value 09/22/2022 5.05 Hemoglobin (g/dL) Date Value 09/22/2022 15.2 Hematocrit (%) Date Value 09/22/2022 46.1 (H) MCV (fL) Date Value 09/22/2022 91.3 MCH (pg) Date Value 09/22/2022 30.1 MCHC (g/dL) Date Value 09/22/2022 33.0 RDW-CV (%) Date Value 09/22/2022 13.4 Platelet Count (k/uL) Date Value 09/22/2022 262 MPV (fL) Date Value 09/22/2022 11.1 Glucose (mg/dL) Date Value 09/22/2022 68 (L) BUN (mg/dL) Date Value 09/22/2022 18 Creatinine (mg/dL) Date Value 09/22/2022 0.93 Sodium (mmol/L) Date Value 09/22/2022 143 Potassium (mmol/L) Date Value 09/22/2022 4.6 Chloride (mmol/L) Date Value 09/22/2022 109 (H) CO2 (mmol/L) Date Value 09/22/2022 24 Protein, Total (g/dL) Date Value 09/22/2022 6.8 Albumin (g/dL) Date Value 09/22/2022 4.2 Calcium, Total (mg/dL) Date Value 09/22/2022 10.0 Alkaline Phosphatase (U/L) Date Value 09/22/2022 116 Bilirubin, Total (mg/dL) Date Value 09/22/2022 1.0 AST (U/L) Date Value 09/22/2022 25 ALT (U/L) Date Value 09/22/2022 27 DIAGNOSIS: (D51.1) Vitamin B12 deficiency anemia due to selective vitamin B12 malabsorption with proteinuria (primary encounter diagnosis) Plan: CBC + DIFF, COMP METABOLIC PANEL, IRON + TIBC, FERRITIN BLD, VITAMIN B12 BLOOD, FOLATE SERUM (D50.8) Iron deficiency anemia secondary to inadequate dietary iron intake Plan: CBC + DIFF, COMP METABOLIC PANEL, IRON + TIBC, FERRITIN BLD, VITAMIN B12 BLOOD, FOLATE SERUM PAST MEDICAL HISTORY Diagnosis Date History of anemia Iron deficiency anemia secondary to inadequate dietary iron intake 06/09/2020 Leukemoid reaction 06/09/2020 Vitamin B12 deficiency anemia due to selective vitamin B12 malabsorption with proteinuria 06/09/2020 Vitamin D deficiency PAST SURGICAL HISTORY Procedure Laterality Date GASTRIC BYPASS HX 1994 REMOVAL GALLBLADDER REMOVAL OF OVARY(S) REPAIR ROTATOR CUFF,ACUTE Left TOTAL ABDOM HYSTERECTOMY Social History Tobacco Use Smoking status: Former Types: Cigarettes Quit date: 02/2022 Years since quittin.5 Passive exposure: Past Smokeless tobacco: Never Vaping Use Vaping Use: Never used Substance Use Topics Alcohol use: Not Currently Drug use: Never No family history on file. I spent a total of 20 minutes on the date of the service which included preparing to see the patient, [id number] patient care, completing clinical documentation, performing a medically appropriate examination, counseling and educating the patient/family/caregiver, ordering medications, tests, or procedures, and independently interpreting results (not separately reported). Rudi Warner MD, CPE Hematology and Oncology Services Provided at: [place], [place] CC: Candace Aguirre, PRODUCTION REPAIRER [address] [facility] [address] documented in this encounter [facility] 09-22-2022 Nurse Note Patient Identification confirmed: yes. Injection given and documented on MAR per provider order. Melissa Villegas MA documented in this encounter [facility] 09-15-2022 Miscellaneous Notes Please sign B12 order for today, please and thanks! Melissa Villegas MA documented in this encounter [facility] 08-11-2022 Nurse Note Patient Identification confirmed: yes. Injection given and documented on MAR per provider order. Jhon Turcios Ma documented in this encounter [facility] 06-08-2022 Hospital Discharg e instructions Patient Education 06/08/2022 16:37:35 Post Op Patient Instructions - FT (CUSTOM) 06/08/2022 16:28:31 Nasal Fracture Nasal Fracture A nasal fracture is a break or crack in the bones of the nose or the tissue that helps to form the nose (cartilage). Minor breaks do not require treatment and usually heal on their own after about one month. Serious breaks may require treatment that could include surgery. What are the causes? A nasal fracture is usually caused by the strong force of a direct hit to the nose (blunt injury). This type of injury often occurs from: Playing a contact sport. Being involved in a car accident. Falling. Getting punched in the face. What are the signs or symptoms? Symptoms of this condition include: Pain. Swelling of the nose. Bleeding from the nose. Bruising around the nose or bruising around the eyes (black eyes). Crooked appearance of the nose. How is this diagnosed? This condition may be diagnosed based on a physical exam. During the exam, the health care provider will: Gently feel the nose for signs of broken bones. Look inside the nostrils to check if there is a blood-filled swelling on the dividing wall between the nostrils (septal hematoma). An X-ray of the nose may be taken. Sometimes, an X-ray may not show a nasal fracture even when one is present. In some cases, X-rays or a CT scan may be taken again 1 5 days later after the swelling has gone down. How is this treated? Treatment for this condition depends on the severity of the injury. Minor fractures that have not caused deformity often do not require treatment. They may heal on their own. For more serious fractures that have caused bones to move out of position, treatment may involve one of the following: ?Repositioning the bones without surgery. The health care provider may be able to do this in his or her office after you are given medicine to numb the nasal area (local anesthetic). ?Surgery. If surgery is needed, it will be done after the swelling is gone. Surgery will stabilize and align the fracture. Follow these instructions at home: Activity Return to your normal activities as told by your health care provider. Ask your health care provider what activities are safe for you. Do not play contact sports for 3 4 weeks or as told by your health care provider. Managing pain and swelling If directed, put ice on the injured area. To do this: Put ice in a plastic bag. Place a towel between your skin and the bag. Leave the ice on for 20 minutes, 2 3 times a day. Take off the ice if your skin turns bright red. This is very important. If you cannot feel pain, heat, or cold, you have a greater risk of damage to the area. General instructions Take [id number] and prescription medicines only as told by your health care provider. If your nose starts to bleed, sit in an upright position while you squeeze the soft parts of your nose against the dividing wall between your nostrils (septum) for 10 minutes. Try to avoid blowing your nose. Keep all follow-up visits. This is important. Contact a health care provider if: Your pain increases or becomes severe. You continue to have nosebleeds. The shape of your nose does not return to normal within 5 days. You have pus draining out of your nose. Get help right away if: You have bleeding from your nose that does not stop after you pinch your nostrils closed for 20 minutes and keep ice on your nose. You have clear fluid draining out of your nose. You notice swelling near the septum inside the nose. This swelling is a septal hematoma that must be drained to help prevent infection. You have difficulty moving your eyes. You have repeated vomiting. These symptoms may be an emergency. Get help right away. Call 911. Do not wait to see if the symptoms will go away. Do not drive yourself to the hospital. Summary A nasal fracture is a break or crack in the bones or cartilage of the nose. The fracture is usually caused by a blunt injury to the nose. Symptoms include pain, swelling, and facial bruising. Nasal fractures may heal on their own, or your health care provider may need to move the bones back into proper position. In some cases, surgery may be needed. This information is not intended to replace advice given to you by your health care provider. Make sure you discuss any questions you have with your health care provider. Document Revised: 09/14/2021 Document Reviewed: 09/14/2021 Elsevier Patient Education 2022 [employer] Follow Up Care 06/07/2022 13:24:48 With:Lata Guardado MD Address: [address] [place] [address], [address] [place] [id number]- When: only if needed [facility] 06-08-2022 Evaluation + Plan note Extrac sunny from: Title:ANES Post-operative Note---General Author: MD Camejo Ahmad F Date:06/08/22 Plan Transfer/Discharge: Transfer/Discharge Discharge when meets criteria ( To home ). Extracted from: Title:Pre-anesthesia - Adult 20 Author:MD Camejo Ahmad F Date:06/08/22 Plan [place] [employer]hesi[employer] (ASA) physical status classification: Class III. Anesthetic Preoperative Plan Anesthesia: General. . Anesthetic plan, risks, benefits, and alternatives discussed with the patient and/or family. Risks discussed: nausea, vomiting, headache, sore throat, dental injury, serious complications. Patient verbalized understanding. Communication: face to face with (patient 5 minutes, Pt educated on the importance of smoking cessation.). [facility]04-20-2023 Note [id number]:127[facility] 05-19-2022 Nurse Note* Jhon Turcios Ma - 05/19/2022 11:06 AM EDT Patient Identification confirmed: yes. Injection given and documented on APR per provider order. Jhon Turcios Ma [facility] NoteHNO ID: [id number] Author: Ailin Trevino APRN.PRODUCTION REPAIRER Service: ? Author Type: Nurse Practitioner Type: Progress Notes Filed: 03/24/2022 4:45 PM Note Text: NAME: Erica Martinez CLINIC NO.: [id number] DATE OF SERVICE: March 24, 2022 (Pramod) Some elements in this clinic note that are critical to medical decision making have been carefully reviewed and included from a prior clinic note dated: October 07, 2021. (Dr. Warner) Referring Provider: Candace Aguirre Additional Clinicians involved in Erica Martinez's care: CC: Consultation for leukocytosis ASSESSMENT: 61 year old woman with prior history of gastric bypass and severe iron deficiency as well as B12 deficiency with likely compensatory elevation in white blood cells. She has a normal white blood cell count differential ratio and so all of her absolute numbers looks elevated. She also has very poor dentition from years of chewing on ice due to pica. Now s/p dental extraction. Continue B12 replacement. Pica resolved. PLAN: 1. B12 shot today and monthly. 2. She will contact her PCP who has also ordered monthly B12 injections and explained that she would prefer to receive her B12 injections here. 3. Follow up in 6 months - labs 1 week ahead. TREATMENT TO DATE: 06/18/2020 - current: B12 injection . 06/18/2020: Ferric Derisomaltose - patient is allergic. HPI: Updated Visit, March 24, 2022: Erica Martinez returns for follow-up and her monthly B12 injection. Since her last visit there has been no significant medical changes. She states that she quit smoking approximately 4 weeks ago. She offers no particular complaints today. She denies fevers, chills, night sweats and signs/symptoms of infection. No bleeding or abnormal bruising she denies any lumps or bumps. She was started on saxenda for weight loss. Updated Visit, October 07, 2021: Resumed smoking after her mother passed 1 year ago. Is trying to quit. Noted based on rising Hgb/Hct with evidence of secondary polycythemia. Otherwise working very hard and feels great after b12 shots. She will need to continue supplementation given her gastric bypass. Updated Visit, April 04, 2021: Erica is 60 and returns in follow up for her B12 defency anemia. She always feels much improved after getting her shot. Labs are markedly improved. She will need to continue supplementation given her gastric bypass. 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 Updated Visit, October 15, 2020: Feels much better after B12 shots. Anemia is improved. She had much more benefit from B12 than from Iron. Just had some teeth taken out and recovering from that. Updated Visit, July 16, 2020: Developed a severe rash following monoferric (now resolved)- will need to use venofer in the future. Labs show improved MCV, pica to ice is improved. No need for b12 today. Overall feels better. Initial Visit, June 09, 2020: Erica Martinez presents today Hematology and Oncology evaluation. She is a 60 year old female who has had a gastric bypass in the mid presents on referral for elevated white blood cell count. I reviewed the rest of her laboratories that are noted in the electronic medical records and noted mild anemia with microcytosis, severely decreased iron indices and ferritin, and marked decrease in B12 levels. Given these findings she likely has a reactive process. She also reports that for years she has had pica to ice. She states that this is a really wound her teeth. She is also an active smoker up until July 2019 when her mother . The patient's brother is also my patient. He has CLL which this does not appear to be. I have asked her to stop taking her B12 and iron tablets. Fatigued white count normal % but continues to elevate. Needed a blood transfusion a few years a go after she passed out. Hasn't had periods for 30 years. REVIEW OF SYSTEMS Per HPI and otherwise negative by full review of organ systems. ECOG PERFORMANCE STATUS: 0 PHYSICAL EXAMINATION: Vitals: BP 131/74 Pulse 80 Temp (Src) 97.5 (Temporal) Resp 16 Ht 5' 4.016 (1.63m) Wt 229 lb 9.6 oz (104.1kg) SpO2 99% BMI 39.39 kg/(m2). Body surface area is 2.17 meters squared. Exam limited to gross visualization where appropriate due to COVID-19. Gen.: This is an age-appropriate patient in no acute distress. Head: Appears atraumatic with no visible lesions. Eyes: Pupils equally round and reactive to light, extraocular muscles are intact. Neck: Supple. Mouth: Mucous membranes appeared to be moist. Respiratory: Appears to be respiring comfortably. Neurologic: Nonfocal to gross visualization. Alert and oriented ?3. Psychiatric: No evidence of inappropriate anxiety or depression. Skin: Visible areas of skin without rash, lesions, wounds or petechiae. ALLERGIES: ALLERGIES Allergen Reactions Monoferric [Ferric * Itching MEDICATIONS: Cholecalciferol, Vitamin D3, 50 mcg (2,000 u (more content not included)... [facility]02-03-2023 Nurse Note* Jhon Turcios Ma - 03/24/2022 11:03 AM EST Patient Identification confirmed: yes. Injection given and documented on APR per provider order. Jhon Turcios Ma [facility] History of Present illness Narrative* Ailin Trevino APRN.PRODUCTION REPAIRER - 03/24/2022 10:40 AM EST Images from the original note were not included. NAME: Erica Martinez CLINIC NO.: [id number] DATE OF SERVICE: March 24, 2022 (Pramod) Some elements in this clinic note that are critical to medical decision making have been carefully reviewed and included from a prior clinic note dated: October 07, 2021. (Dr. Warner) Referring Provider: Candace Aguirre Additional Clinicians involved in Erica Martinez's care: CC: Consultation for leukocytosis ASSESSMENT: 61 year old woman with prior history of gastric bypass and severe iron deficiency as well as B12 deficiency with likely compensatory elevation in white blood cells. She has a normal whiteblood cell count differential ratio and so all of her absolute numbers looks elevated. She also hasvery poor dentition from years of chewing on ice due to pica. Now s/p dental extraction. Continue B12 replacement. Pica resolved. PLAN: 1. B12 shot today and monthly. 2. She will contact her PCP who has also ordered monthly B12 injections and explained that she would prefer to receive her B12 injections here. 3. Follow up in 6 months - labs 1 week ahead. TREATMENT TO DATE: 2. 06/18/2020 - current: B12 injection . 06/18/2020: Ferric Derisomaltose - patient is allergic. HPI: Updated Visit, March 24, 2022: Erica Martinez returns for follow-up and her monthly B12 injection. Since her last visit there has been no significant medical changes. She states that she quit smoking approximately 4 weeks ago. She offers no particular complaints today. She denies fevers, chills, night sweats and signs/symptoms of infection. No bleeding or abnormal bruising she denies any lumps or bumps. She was started on saxenda for weight loss. Updated Visit, October 07, 2021: Resumed smoking after her mother passed 1 year ago. Is trying to quit. Noted based on rising Hgb/Hct with evidence of secondary polycythemia. Otherwise working very hard and feels great after b12 shots. She will need to continue supplementation given her gastric bypass. Updated Visit, April 04, 2021: Erica is 60 and returns in follow up for her B12 defency anemia. She always feels much improved after getting her shot. Labs are markedly improved. She will need to continue supplementation given her gastric bypass. 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 Updated Visit, October 15, 2020: Feels much better after B12 shots. Anemia is improved. She had much more benefit from B12 than fromIron. Just had some teeth taken out and recovering from that. Updated Visit, July 16, 2020: Developed a severe rash following monoferric (now resolved)- will need to use venofer in the future. Labs show improved MCV, pica to ice is improved. No need for b12 today. Overall feels better. Initial Visit, June 09, 2020: Erica Martinez presents today Hematology and Oncology evaluation. She is a 60 year old female who hashad a gastric bypass in the mid presents on referral for elevated white blood cell count. I reviewed the rest of her laboratories that are noted in the electronic medical records and noted mildanemia with microcytosis, severely decreased iron indices and ferritin, and marked decrease in B12 levels. Given these findings she likely has a reactive process. She also reports that for years she has had pica to ice. She states that this is a really wound her teeth. She is also an active smoker up until July 2019 when her mother . The patient's brother is also my patient. He has CLLwhich this does not appear to be. I have asked her to stop taking her B12 and iron tablets. Fatigued white count normal % but continues to elevate. Needed a blood transfusion a few years a go after she passed out. Hasn't had periods for 30 years. REVIEW OF SYSTEMS Per HPI and otherwise negative by full review of organ systems. ECOG PERFORMANCE STATUS: 0 PHYSICAL EXAMINATION: Vitals: BP 131/74 Pulse 80 Temp (Src) 97.5 (Temporal) Resp 16 Ht 5' 4.016 (1.63m) Wt 229lb 9.6 oz (104.1kg) SpO2 99% BMI 39.39 kg/(m^2). Body surface area is 2.17 meters squared. Exam limited to gross visualization where appropriate due to COVID-19. Gen.: This is an age-appropriate patient in no acute distress. Head: Appears atraumatic with no visible lesions. Eyes: Pupils equally round and reactive to light, extraocular muscles are intact. Neck: Supple. Mouth: Mucous membranes appeared to be moist. Respiratory: Appears to be respiring comfortably. Neurologic: Nonfocal to gross visualization. Alert and oriented 3. Psychiatric: No evidence of inappropriate anxiety or depression. Skin: Visible areas of skin without rash, lesions, wounds or petechiae. ALLERGIES: ALLERGIES Allergen Reactions Monoferric [Ferric * Itching MEDICATIONS: Cholecalciferol, Vitamin D3, 50 mcg (2,000 unit) cap q 24 HR. topiramate (TOPAMAX) 25 mg tablet methylPREDNISolone (MEDROL) 4 mg Benzonatate 200 mg capsule benzonatate 200 mg capsule Take 1 capsule 3 times a day by oral route for 10 days. ferrous sulfate 325 mg (65 mg iron) tablet Take 1 tablet by mouth once daily. cyanocobalamin (VITAMIN B-12) 1,000 mcg tab Take 1,000 mcg by mouth once daily. docusate sodium (COLACE) 100 mg capsule TAKE 1 CAPSULE BY MOUTH EVERY DAY NEEDED Phentermine HCl 37.5 mg tablet Take 37.5 mg by mouth once daily. 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 PAST MEDICAL HISTORY Diagnosis Date History of anemia Iron deficiency anemia secondary to inadequate dietary iron intake 06/09/2020 Leukemoid reaction 06/09/2020 Vitamin B12 deficiency anemia due to selective vitamin B12 malabsorption with proteinuria 06/09/2020 Vitamin D deficiency PAST SURGICAL HISTORY Procedure Laterality Date GASTRIC BYPASS HX 1994 REMOVAL GALLBLADDER REMOVAL OF OVARY(S) REPAIR ROTATOR CUFF,ACUTE Left TOTAL ABDOM HYSTERECTOMY Social History Tobacco Use Smoking status: Former Types: Cigarettes Quit date: 07/2019 Years since quittin.6 Passive exposure: Past Smokeless tobacco: Never Vaping Use Vaping Use: Never used Substance Use Topics Alcohol use: Not Currently Drug use: Never No family history on file. Ailin Trevino APRN.CNP [place], [place] CC: Candace Aguirre CNP [address] [facility] [address] I spent a total of 30 minutes on the date of the service which included preparing to see the patient, [id number] patient care, completing clinical documentation, obtaining and/or reviewing separately obtained history, performing a medically appropriate examination, counseling and educating the pat ient/family/caregiver, ordering medications, tests, or procedures, independently interpreting results (not separately reported), and communicating results to the patient/family/caregiver. [facility] Nurse Note* Jhon Turcios Ma - 02/24/2022 11:01 AM EST Patient Identification confirmed: yes. Injection given and documented on MAR per provider order. Jhon Turcios Ma documented [facility] History of Present illness Narrative* Sophy Mirza - 01/27/2022 11:02 AM EST Patient Identification confirmed: yes. Injection given and documented on MAR per provider order. Sophy Mirza [facility] Nurse Note* Melissa Villegas MA - 12/30/2021 11:32 AM EST Patient Identification confirmed: yes. Injection given and documented on MAR per provider order. Melissa Villegas MA documented [facility] this [facility] Nurse Note* Jhon Turcios Ma - 11/04/2021 10:59 AM EDT Patient Identification confirmed: yes. Injection given and documented on APR per provider order. Jhon Turcios Ma documented in this [facility] Instructions* Patient Instructions* Rudi Warner MD - 10/07/2021 4:06 PM EDT 1. B12 shot today and monthly 2. RTC in 6 months - labs 1 week ahead documented [facility] History of Present illness Narrative* Rudi Warner MD - 10/07/2021 3:56 PM EDT Images from the original note were not included. NAME: Erica Mratinez CLINIC NO.: [id number] DATE OF SERVICE: October 07, 2021 Some elements in this clinic note that are critical to medical decision making have been carefully reviewed and included from a prior clinic note dated: April 04, 2021 Referring Provider: Candace Aguirre Additional Clinicians involved in Erica Martinez's care: CC: Consultation for leukocytosis ASSESSMENT: 61 year old woman with prior history of gastric bypass and severe iron deficiency as well as B12 deficiency with likely compensatory elevation in white blood cells. She has a normal whiteblood cell count differential ratio and so all of her absolute numbers looks elevated. She also hasvery poor dentition from years of chewing on ice due to pica. Now s/p dental extraction. Continue B12 replacement. Pica resolved. PLAN: 1. B12 shot today and monthly 2. RTC in 6 months - labs 1 week ahead TREATMENT TO DATE: 2. 06/18/2020 - current: B12 injection 1. 06/18/2020: Ferric Derisomaltose - patient is allergic. HPI: Updated Visit, October 07, 2021: Resumed smoking after her mother passed 1 year ago. Is trying to quit. Noted based on rising Hgb/Hct with evidence of secondary polycythemia. Otherwise working very hard and feels great after b12 shots. She will need to continue supplementation given her gastric bypass. Updated Visit, April 04, 2021: Erica is 60 and returns in follow up for her B12 defency anemia. She always feels much improved after getting her shot. Labs are markedly improved. She will need to continue supplementation given her gastric bypass. 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 Updated Visit, October 15, 2020: Feels much better after B12 shots. Anemia is improved. She had much more benefit from B12 than fromIron. Just had some teeth taken out and recovering from that. Updated Visit, July 16, 2020: Developed a severe rash following monoferric (now resolved)- will need to use venofer in the future. Labs show improved MCV, pica to ice is improved. No need for b12 today. Overall feels better. Initial Visit, June 09, 2020: Erica Martinez presents today Hematology and Oncology evaluation. She is a 60 year old female who hashad a gastric bypass in the mid presents on referral for elevated white blood cell count. I reviewed the rest of her laboratories that are noted in the electronic medical records and noted mildanemia with microcytosis, severely decreased iron indices and ferritin, and marked decrease in B12 levels. Given these findings she likely has a reactive process. She also reports that for years she has had pica to ice. She states that this is a really wound her teeth. She is also an active smoker up until July 2019 when her mother . The patient's brother is also my patient. He has CLLwhich this does not appear to be. I have asked her to stop taking her B12 and iron tablets. Fatigued white count normal % but continues to elevate. Needed a blood transfusion a few years a go after she passed out. Hasn't had periods for 30 years. REVIEW OF SYSTEMS Per HPI and otherwise negative by full review of organ systems. ECOG PERFORMANCE STATUS: 0 PHYSICAL EXAMINATION: Vitals: BP 147/72 Pulse 83 Temp (Src) 97.4 (Temporal) Resp 16 Ht 5' 4.016 (1.63m) Wt 233lb (105.7kg) SpO2 96% BMI 39.97 kg/(m^2). Body surface area is 2.18 meters squared. Exam limited to gross visualization where appropriate due to COVID-19. Gen.: This is an age-appropriate patient in no acute distress. Head: Appears atraumatic with no visible lesions. Eyes: Pupils equally round and reactive to light, extraocular muscles are intact. Neck: Supple. Mouth: Mucous membranes appeared to be moist. Respiratory: Appears to be respiring comfortably. Neurologic: Nonfocal to gross visualization. Alert and oriented 3. Psychiatric: No evidence of inappropriate anxiety or depression. Skin: Visible areas of skin without rash, lesions, wounds or petechiae. ALLERGIES: ALLERGIES Allergen Reactions Monoferric [Ferric * Itching MEDICATIONS: Cholecalciferol, Vitamin D3, 50 mcg (2,000 unit) cap q 24 HR. topiramate (TOPAMAX) 25 mg tablet methylPREDNISolone (MEDROL) 4 mg Benzonatate 200 mg capsule benzonatate 200 mg capsule Take 1 capsule 3 times a day by oral route for 10 days. ferrous sulfate 325 mg (65 mg iron) tablet Take 1 tablet by mouth once daily. cyanocobalamin (VITAMIN B-12) 1,000 mcg tab Take 1,000 mcg by mouth once daily. docusate sodium (COLACE) 100 mg capsule TAKE 1 CAPSULE BY MOUTH EVERY DAY NEEDED Phentermine HCl 37.5 mg tablet Take 37.5 mg by mouth once daily. LABORATORY VALUES: WBC (k/uL) Date Value 10/07/2021 12.37 (H) RBC (m/uL) Date Value 10/07/2021 5.37 (H) Hemoglobin (g/dL) Date Value 10/07/2021 15.9 (H) Hematocrit (%) Date Value 10/07/2021 48.3 (H) MCV (fL) Date Value 10/07/2021 89.9 MCH (pg) Date Value 10/07/2021 29.6 MCHC (g/dL) Date Value 10/07/2021 32.9 RDW-CV (%) Date Value 10/07/2021 13.3 Platelet Count (k/uL) Date Value 10/07/2021 293 MPV (fL) Date Value 10/07/2021 10.9 Glucose (mg/dL) Date Value 04/04/2021 88 BUN (mg/dL) Date Value 04/04/2021 20 Creatinine (mg/dL) Date Value 04/04/2021 0.82 Sodium (mmol/L) Date Value 04/04/2021 139 Potassium (mmol/L) Date Value 04/04/2021 3.6 (L) Chloride (mmol/L) Date Value 04/04/2021 104 CO2 (mmol/L) Date Value 04/04/2021 26 Protein, Total (g/dL) Date Value 04/04/2021 7.4 Albumin (g/dL) Date Value 04/04/2021 4.5 Calcium (mg/dL) Date Value 04/04/2021 10.0 Alkaline Phosphatase (U/L) Date Value 04/04/2021 115 Bilirubin, Total (mg/dL) Date Value 04/04/2021 1.3 AST (U/L) Date Value 04/04/2021 14 ALT (U/L) Date Value 04/04/2021 12 DIAGNOSIS: (D51.1) Vitamin B12 deficiency anemia due to selective vitamin B12 malabsorption with proteinuria (primary encounter diagnosis) Plan: CBC + DIFF, COMP METABOLIC PANEL, IRON + TIBC, FERRITIN BLD, VITAMIN B12 BLOOD, FOLATE SERUM (D50.8) Iron deficiency anemia secondary to inadequate dietary iron intake Plan: CBC + DIFF, COMP METABOLIC PANEL, IRON + TIBC, FERRITIN BLD, VITAMIN B12 BLOOD, FOLATE SERUM (D75.1) Secondary polycythemia Plan: CBC + DIFF, COMP METABOLIC PANEL, IRON + TIBC, FERRITIN BLD, VITAMIN B12 BLOOD, FOLATE SERUM PAST MEDICAL HISTORY Diagnosis Date History of anemia Iron deficiency anemia secondary to inadequate dietary iron intake 06/09/2020 Leukemoid reaction 06/09/2020 Vitamin B12 deficiency anemia due to selective vitamin B12 malabsorption with proteinuria 06/09/2020 Vitamin D deficiency PAST SURGICAL HISTORY Procedure Laterality Date GASTRIC BYPASS HX 1994 REMOVAL GALLBLADDER REMOVAL OF OVARY(S) REPAIR ROTATOR CUFF,ACUTE Left TOTAL ABDOM HYSTERECTOMY Social History Tobacco Use Smoking status: Former Types: Cigarettes Quit date: 07/2019 Years since quittin.2 Passive exposure: Past Smokeless tobacco: Never Substance Use Topics Alcohol use: Not Currently No family history on file. I spent a total of 25 minutes on the date of the service which included preparing to see the patient, [id number] patient care, completing clinical documentation, performing a medically appropriate examination, counseling and educating the patient/family/caregiver, and ordering medications, tests,or procedures. Rudi Warner MD, CPE [place], [place] CC: Candace Aguirre, PRODUCTION REPA[employer]ER [address] [place] [address] documented in this [facility]07-08-2022 Nurse Note* Jhon Turcios Ma - 08/26/2021 11:45 AM EDT Patient Identification confirmed: yes. Injection given and documented on MAR per provider order. Jhon Turcios Ma documented in this [facility]06-10-2022 Nurse Note* Melissa Villegas MA - 07/29/2021 11:37 AM EDT Patient Identification confirmed: yes. Injection given and documented on MAR per provider order. Melissa Villegas MA documented in this [facility]05-13-20[facility] Nurse Note* Jhon Turcios Ma - 07/01/2021 11:42 AM EDT Patient Identification confirmed: yes. Injection given and documented on MAR per provider order. Jhon Turcios Ma documented in this [facility]04-15-20[facility] Nurse Note* Jhon Turcios Ma - 06/03/2021 11:36 AM EDT Patient Identification confirmed: yes. Injection given and documented on MAR per provider order. Jhon Turcios Ma [facility] Diagnosis Iron deficiency anemia secondary to inadequate dietary iron intake- Primary Vitamin B12 deficiency anemia due to selective vitamin B12 malabsorption with proteinuria Other vitamin B12 deficiency anemia Leukemoid reaction [facility] this [facility]* Diagnosis Iron deficiency anemia secondary to inadequate dietary iron intake- Primary Vitamin B12 deficiency anemia due to selective vitamin B12 malabsorption with proteinuria Other vitamin B12 deficiency anemia Leukemoid reaction [facility] Iron deficiency anemia secondary to inadequate dietary iron intake- Primary Vitamin B12 deficiency anemia due to selective vitamin B12 malabsorption with proteinuria Other vitamin B12 deficiency anemia Leukemoid reaction [facility]* Diagnosis Vitamin B12 deficiency anemia due to selective vitamin B12 malabsorption with proteinuria- Primary Other vitamin B12 deficiency anemia Iron deficiency anemia secondary to inadequate dietary iron intake Secondary polycythemia Polycythemia, secondary [facility] this [facility]* Diagnosis Iron deficiency anemia secondary to inadequate dietary iron intake- Primary Vitamin B12 deficiency anemia due to selective vitamin B12 malabsorption with proteinuria Other vitamin B12 deficiency anemia Leukemoid reaction documented in this [facility]* Diagnosis Iron deficiency anemia secondary to inadequate dietary iron intake- Primary Vitamin B12 deficiency anemia due to selective vitamin B12 malabsorption with proteinuria Other vitamin B12 deficiency anemia Leukemoid reaction [facility]* Diagnosis Iron deficiency anemia secondary to inadequate dietary iron intake- Primary Vitamin B12 deficiency anemia due to selective vitamin B12 malabsorption with proteinuria Other vitamin B12 deficiency anemia Secondary polycythemia Polycythemia, secondary History of Berry-en-Y gastric bypass Bariatric surgery status documented [facility] this [facility]* Diagnosis Iron deficiency anemia secondary to inadequate dietary iron intake- Primary Vitamin B12 deficiency anemia due to selective vitamin B12 malabsorption with proteinuria Other vitamin B12 deficiency anemia Leukemoid reaction documented [facility] this [facility]* Diagnosis Vitamin B12 deficiency anemia due to selective vitamin B12 malabsorption with proteinuria- Primary Other vitamin B12 deficiency anemia Iron deficiency anemia secondary to inadequate dietary iron intake documented [facility] this [facility]* Diagnosis Iron deficiency anemia secondary to inadequate dietary iron intake- Primary Vitamin B12 deficiency anemia due to selective vitamin B12 malabsorption with proteinuria Other vitamin B12 deficiency anemia Leukemoid reaction [facility]* Diagnosis Abnormal mammogram- Primary Abnormal mammogram, unspecified [facility] Diagnosis Abnormal mammogram- Primary Abnormal mammogram, unspecified [facility] Narrative No data available for this section [facility]Not on filedocumented in this encounter [facility]InstructionsNot on filedocumented in this encounter [facility] No data available for this section [facility] Summary Purpose Family History No Family History Records FoundNo Family History Records FoundNo Family History Records FoundNo Family History Records FoundNo Family History Records FoundNo Family History Records Found Advance Directives No Advanced Directives Records FoundNo Advanced Directives Records FoundNo Advanced Directives Records FoundNo Advanced Directives Records FoundNo Advanced Directives Records FoundNo Advanced Directives Records Found Medications Administered Section Inactive Administered Medications - up to 3 most recent administrations Medication Order MAR Action Action Date Dose Rate Site cyanocobalamin 1,000 mcg injection 1,000 mcg, INTRAMUSCULAR, ONCE, 1 dose, On Sun06/03/21 at 1200 Given 06/03/2021 11:50 AM EDT 1,000 mcg Deltoid, Left Inactive Administered Medications - up to 3 most recent administrations Medication Order MAR Action Action Date Dose Rate Site cyanocobalamin 1,000 mcg injection 1,000 mcg, INTRAMUSCULAR, ONCE, 1 dose, On Sun07/01/21 at 1200 Given 07/01/2021 11:57 AM EDT 1,000 mcg Deltoid, Right Inactive Administered Medications - up to 3 most recent administrations Medication Order MAR Action Action Date Dose Rate Site cyanocobalamin 1,000 mcg injection 1,000 mcg, INTRAMUSCULAR, ONCE, 1 dose, On Sun07/29/21 at 1130 Given 07/29/2021 11:36 AM EDT 1,000 mcg Deltoid, Left Inactive Administered Medications - up to 3 most recent administrations Medication Order MAR Action Action Date Dose Rate Site cyanocobalamin 1,000 mcg injection 1,000 mcg, INTRAMUSCULAR, ONCE, 1 dose, On Sun08/26/21 at 1200 Given 08/26/2021 11:56 AM EDT 1,000 mcg Deltoid, Left Inactive Administered Medications - up to 3 most recent administrations Medication Order MAR Action Action Date Dose Rate Site cyanocobalamin 1,000 mcg injection 1,000 mcg, INTRAMUSCULAR, ONCE, 1 dose, On Sun11/04/21 at 1100 Given 11/04/2021 11:07 AM EDT 1,000 mcg Deltoid, Left Inactive Administered Medications - up to 3 most recent administrations Medication Order MAR Action Action Date Dose Rate Site cyanocobalamin 1,000 mcg injection 1,000 mcg, INTRAMUSCULAR, ONCE, 1 dose, On Sun12/30/21 at 1130 Given 12/30/2021 11:31 AM EST 1,000 mcg Deltoid, Left Inactive Administered Medications - up to 3 most recent administrations Medication Order MAR Action Action Date Dose Rate Site cyanocobalamin 1,000 mcg injection 1,000 mcg, INTRAMUSCULAR, ONCE, 1 dose, On Sun01/27/22 at 1130 Given 01/27/2022 11:24 AM EST 1,000 mcg Deltoid, Left Inactive Administered Medications - up to 3 most recent administrations Medication Order MAR Action Action Date Dose Rate Site cyanocobalamin 1,000 mcg injection 1,000 mcg, INTRAMUSCULAR, ONCE, 1 dose, On Sun02/24/22 at 1100 Given 02/24/2022 11:01 AM EST 1,000 mcg Deltoid, Left Inactive Administered Medications - up to 3 most recent administrations Medication Order MAR Action Action Date Dose Rate Site cyanocobalamin 1,000 mcg injection 1,000 mcg, INTRAMUSCULAR, ONCE, 1 dose, On Sun03/24/22 at 1100 Given 03/24/2022 11:23 AM EST 1,000 mcg Deltoid, Right Inactive Administered Medications - up to 3 most recent administrations Medication Order MAR Action Action Date Dose Rate Site cyanocobalamin 1,000 mcg injection 1,000 mcg, INTRAMUSCULAR, ONCE, 1 dose, On Sun05/19/22 at 1100 Given 05/19/2022 11:13 AM EDT 1,000 mcg Deltoid, Right Inactive Administered Medications - up to 3 most recent administrations Medication Order MAR Action Action Date Dose Rate Site cyanocobalamin 1,000 mcg injection 1,000 mcg, INTRAMUSCULAR, ONCE, 1 dose, On Sun08/11/22 at 1100 Given 08/11/2022 11:09 AM EDT 1,000 mcg Deltoid, Right Inactive Administered Medications - up to 3 most recent administrations Medication Order MAR Action Action Date Dose Rate Site cyanocobalamin 1,000 mcg injection 1,000 mcg, INTRAMUSCULAR, ONCE, 1 dose, On Sun09/22/22 at 1130 Given 09/22/2022 11:39 AM EDT 1,000 mcg Deltoid, Right Inactive Administered Medications - up to 3 most recent administrations Medication Order MAR Action Action Date Dose Rate Site cyanocobalamin 1,000 mcg injection 1,000 mcg, INTRAMUSCULAR, ONCE, 1 dose, On Marsha 10/19/22 at 0900 Given 10/19/2022 9:17 AM EDT 1,000 mcg Deltoid, Right Inactive Administered Medications - up to 3 most recent administrations Medication Order MAR Action Action Date Dose Rate Site cyanocobalamin 1,000 mcg injection 1,000 mcg, INTRAMUSCULAR, ONCE, 1 dose, On Sun11/24/22 at 1030 Given 11/24/2022 10:30 AM EDT 1,000 mcg Buttocks, Left Inactive Administered Medications - up to 3 most recent administrations Medication Order MAR Action Action Date Dose Rate Site cyanocobalamin 1,000 mcg injection 1,000 mcg, INTRAMUSCULAR, ONCE, 1 dose, On Sun01/19/23 at 1030 Given 01/19/2023 10:30 AM EST 1,000 mcg Deltoid, Right Additional Source Comments INFORMATION SOURCE (unrecogn ized section and content) DATE CREATED AUTHOR 09/15/2018 [facility] DATE CREATED AUTHOR AUTHOR'S ORGANIZ ATION 08/31/2021 [facility] DATE CREATED AUTHOR AUTHOR'S ORGANIZ ATION 06/05/2022 [facility] DATE CREATED AUTHOR AUTHOR'S ORGANIZ ATION 06/13/2022 Almanza Sully [facility] DATE CREATED AUTHOR AUTHOR'S ORGANIZ ATION 09/05/2022 [facility] DATE CREATED AUTHOR AUTHOR'S ORGANIZ ATION 02/24/2023 [facility] Source Comments (unrecognize d section and content) In the event this informatio n is protected by the Federal Confidentiality of Alcohol and Drug Abuse Patient Records regulations: The Federal rules restrict any use of the information to criminally investigate or prosecute any alcohol or drug abuse patient.[facility] the event this information is protected by the Federal Confidentiality of Alcohol and Drug Abuse Patient Records regulations: The Federal rules restrict any use of the information to criminally investigate or prosecute any alcohol or drug abuse patient.[facility] the event this information is protected by the Federal Confidentiality of Alcohol and Drug Abuse Patient Records regulations: The Federal rules restrict any use of the information to criminally investigate or prosecute any alcohol or drug abuse patient.[facility] the event this information is protected by the Federal Confidentiality of Alcohol and Drug Abuse Patient Records regulations: The Federal rules restrict any use of the information to criminally investigate or prosecute any alcohol or drug abuse patient.[facility] the event this information is protected by the Federal Confidentiality of Alcohol and Drug Abuse Patient Records regulations: The Federal rules restrict any use of the information to criminally investigate or prosecute any alcohol or drug abuse patient.[facility] the event this information is protected by the Federal Confidentiality of Alcohol and Drug Abuse Patient Records regulations: The Federal rules restrict any use of the information to criminally investigate or prosecute any alcohol or drug abuse patient.[facility] the event this information is protected by the Federal Confidentiality of Alcohol and Drug Abuse Patient Records regulations: The Federal rules restrict any use of the information to criminally investigate or prosecute any alcohol or drug abuse patient.[facility] the event this information is protected by the Federal Confidentiality of Alcohol and Drug Abuse Patient Records regulations: The Federal rules restrict any use of the information to criminally investigate or prosecute any alcohol or drug abuse patient.[facility] the event this information is protected by the Federal Confidentiality of Alcohol and Drug Abuse Patient Records regulations: The Federal rules restrict any use of the information to criminally investigate or prosecute any alcohol or drug abuse patient.[facility] the event this information is protected by the Federal Confidentiality of Alcohol and Drug Abuse Patient Records regulations: The Federal rules restrict any use of the information to criminally investigate or prosecute any alcohol or drug abuse patient.[facility] the event this information is protected by the Federal Confidentiality of Alcohol and Drug Abuse Patient Records regulations: The Federal rules restrict any use of the information to criminally investigate or prosecute any alcohol or drug abuse patient.[facility] the event this information is protected by the Federal Confidentiality of Alcohol and Drug Abuse Patient Records regulations: The Federal rules restrict any use of the information to criminally investigate or prosecute any alcohol or drug abuse patient.[facility] the event this information is protected by the Federal Confidentiality of Alcohol and Drug Abuse Patient Records regulations: The Federal rules restrict any use of the information to criminally investigate or prosecute any alcohol or drug abuse patient.[facility] the event this information is protected by the Federal Confidentiality of Alcohol and Drug Abuse Patient Records regulations: The Federal rules restrict any use of the information to criminally investigate or prosecute any alcohol or drug abuse patient.[facility] the event this information is protected by the Federal Confidentiality of Alcohol and Drug Abuse Patient Records regulations: The Federal rules restrict any use of the information to criminally investigate or prosecute any alcohol or drug abuse patient.[facility] the event this information is protected by the Federal Confidentiality of Alcohol and Drug Abuse Patient Records regulations: The Federal rules restrict any use of the information to criminally investigate or prosecute any alcohol or drug abuse patient.[facility] the event this information is protected by the Federal Confidentiality of Alcohol and Drug Abuse Patient Records regulations: The Federal rules restrict any use of the information to criminally investigate or prosecute any alcohol or drug abuse patient.[facility] the event this information is protected by the Federal Confidentiality of Alcohol and Drug Abuse Patient Records regulations: The Federal rules restrict any use of the information to criminally investigate or prosecute any alcohol or drug abuse [facility] the event this information is protected by the Federal Confidentiality of Alcohol and Drug Abuse Patient Records regulations: The Federal rules restrict any use of the information to criminally investigate or prosecute any alcohol or drug abuse patient.[facility] the event this information is protected by the Federal Confidentiality of Alcohol and Drug Abuse Patient Records regulations: The Federal rules restrict any use of the information to criminally investigate or prosecute any alcohol or drug abuse patient.[facility] the event this information is protected by the Federal Confidentiality of Alcohol and Drug Abuse Patient Records regulations: The Federal rules restrict any use of the information to criminally investigate or prosecute any alcohol or drug abuse patient.[facility] Teams (unrecognized sec tion and content) Motion Designer Relationship Specialty [place] [address] PCP - General Family Practice 06/03/20 Motion Designer Relationship Specialty [place] [address] PCP - General Family Practice 06/03/20 Motion Designer Relationship Specialty [place] [address] PCP - General Family Practice 06/03/20 Motion Designer Relationship Specialty Start [place] [address] PCP - General Family Practice 06/03/20 Motion Designer Relationship Specialty Start [place] [address] PCP - General Family Practice 06/03/20 Motion Designer Relationship Specialty Start [place] [address] PCP - General Family Medicine 06/03/20 Motion Designer Relationship Specialty Start [place] [address] PCP - General Family Medicine 06/03/20 Motion Designer Relationship Specialty Start Date End Date Candace Aguirre [address] [place] [address] PCP - General Family Medicine 06/03/20 Motion Designer Relationship Specialty Start Date End Date Candace Aguirre [address] [place] [address] PCP - General Family Medicine 06/03/20 Motion Designer Relationship Specialty Start Date End Date Candace Aguirre [address] [place] [address] PCP - General Family Medicine 06/03/20 Motion Designer Relationship Specialty Start Date End Date Candace Aguirre [address] [place] [address] PCP - General Family Medicine 06/03/20 Motion Designer Relationship Specialty Start Date End Date Candace Aguirre [address] [place] [address] PCP - General Family Medicine 06/03/20 Motion Designer Relationship Specialty Start Date End Date Candace Aguirre [address] [place] [address] PCP - General Family Medicine 06/03/20 Motion Designer Relationship Specialty Start Date End Date Candace Aguirre, PRODUCTION REPAIRER [address] [place] [address] PCP - General Family Medicine 06/03/20 Motion Designer Relationship Specialty Start Date End Date Candace Aguirre, PRODUCTION REPAIRER [address] [place] [address] PCP - General Family Medicine 06/03/20 Motion Designer Relationship Specialty Start Date End Date Bakari Jones DO [address], [place] [address] PCP - General Family Medicine 01/22/18 Motion Designer Relationship Specialty Start Date End Date Bakari Jones DO [address], [place] [address] PCP - General Family Medicine 01/22/18 Reason for Visit (unrecogniz ed section and content) Reason Comments Anemia Reason Comments Anemia 6 month follow up Reason Comments Orders Reason Comments Established Patient FOR RECORDS PERTAINING TO PATIENTS WHO ARE OR HAVE BEEN ENROLLED IN A CHEMICAL DEPENDENCY/SUBSTANCEABUSE PROGRAM, SOME INFORMATION MAY BE OMITTED. This clinical summary was aggregated from multiple sources. Caution should be exercised in using it in the provision of clinical care. This summary normalizes information from multiple sources, and as a consequence, information in this document may materially change the coding, format and clinical context of patient data. In addition, data may be omitted in some cases. CLINICAL DECISIONS SHOULD BE BASED ON THE PRIMARY CLINICAL RECORDS. [employer] provides no warranty or guarantee of the accuracy or completeness of information in this document.
== END 2023-03-06 09:49 | disposition home or self-care (01) ==
LOC: MAMMO 09:48
PROVIDERS: PCP Nurse Practitioner Family; Visit Provider Family Medicine
DX: R92.8 Other abnormal and inconclusive findings on diagnostic imaging of breast (principal); Z80.7 Family history of other malignant neoplasms of lymphoid, hematopoietic and related tissues; Z80.8 Family history of malignant neoplasm of other organs or systems
CPT/HCPCS: 76642; 77065